=== PATIENT | male | born 1935 ===

== ENCOUNTER 2016-12-24 16:28 | Inpatient (IN) | payer MEDICARE, BC, OTHER ==
[2016-12-24] MEDS ORDERED: Ondansetron INJ* 2 MG/ML VIAL IV SCH (18:00)
[2016-12-24] MEDS ORDERED: Ondansetron INJ* 2 MG/ML VIAL IV PRN (18:30)
[2016-12-24] MEDS ORDERED: metroNIDAZOLE IV 500 MG/100ML* 500 MG/100 ML BAG IVPB SCH (18:30)
[2016-12-24] MEDS: NS 0.9% 1000 ML* 1,000 ML IV SCH (18:36)
[2016-12-24 19:19] LABS: Hematocrit 36 % (42-52); Hemoglobin 11.7 g/dl (14.0-18.0); Mean Corpuscular HGB Conc 33 g/dl (31-36); Mean Corpuscular Hemoglobin 30 pg (27-31); Mean Corpuscular Volume 91 fL (80-94); Mean Platelet Volume 8 um3 (7.4-10.4); Red Blood Count 3.95 10^6/ul (4.0-5.4); Red Cell Distribution Width 15 % (10.5-15); White Blood Count 13.5 10^3/ul (3.5-10.8)
[2016-12-24 19:29] LABS: Add Diff/Slide Review? Slide Review Added; Comments Flag Yes
[2016-12-24 19:34] LABS: Albumin 2.9 g/dL (3.2-5.2); Calcium 8.3 mg/dL (8.6-10.3); EGFR African American 59.8 (>60); EGFR Non-African American 46.5 (>60); Globulin 2.9 g/dL (2-4); Potassium 3.5 mmol/L (3.5-5.0); Total Bilirubin 0.4 mg/dL (0.2-1.0); Total Protein 5.8 g/dL (6.4-8.9)
[2016-12-24 20:12] LABS: Immature Granulocytes 24 % (0-9); Myelocytes % 3 % (0-1); Neutrophil % 63 % (38-83)
[2016-12-24 20:13] LABS: RBC Morphology Normal (Normal)
--- NOTE | 2016-12-24 20:35 | CONS ---
CC: Dr. Fili Nguyễn; [facility] * SURGICAL CONSULTATION REPORT: DATE OF CONSULT: 12/24/16 LOCATION: The patient is seen in room 333. HISTORY OF PRESENT ILLNESS: I was contacted by the hospitalist service to evaluate Mr. Clarke, a gentleman who was transferred from [place] [facility] with complaints of a 5-day history of abdominal pain. The patient's workup at [facility] included a CT scan with p.o. contrast , and labs showed an elevated white blood cell count of 16 with left shift and a CT scan consistent with small obstruction with free fluid collection of unclear etiology. Emergency room team contacted Dr. Araya who recommended transfer to our hospital. The patient describes significant diarrhea starting around last week. It continued into the weekend and then he started having some abdominal pain, mostly in the mid abdomen, nonradiating. He treated this with Aleve. He then developed vomiting and retching. First episodes of vomiting were significant amounts that were blood tinged. This gave him some relief. The vomiting trailed off to more smaller volumes and then the patient showed that he had no appetite and presented to the emergency room at [place]. The patient denies any previous similar symptoms. Denies any fevers or chills. Currently, he does not have any significant abdominal pain. He has not asked for any narcotics. He has an appetite. He is passing a small amount of flatus. Denies any hiccups. PAST MEDICAL HISTORY: Hypertension, anxiety, and prostate cancer. PAST SURGICAL HISTORY: Open appendectomy many years ago and a right total hip. He underwent radiation treatment for his prostate. HOME MEDICATIONS: Include: 1. Wellbutrin. 2. Zoloft. 3. Zyprexa. 4. Prinivil. 5. Lorazepam. 6. Vitamins. ALLERGIES: He has no known drug allergies. SOCIAL HISTORY: Former smoker. Last smoking was many years ago. Denies alcohol use. He is retired. Lives with his girlfriend. He presents today with his older son. He has fair exercise tolerance, although he does not like to do too much exercising. He does not remember his last colonoscopy. REVIEW OF SYSTEMS: No fevers. No chills. No shortness of breath or chest pain. No cardiovascular disease or cerebrovascular disease. No headaches. Abdominal pain as described. No dysuria. No hematuria or pneumaturia. Minimal flatus passage. No bowel movement for a few days. The patient has been told he had diverticulitis on some report, but he has never been treated for this or have any symptoms of it. The patient seems to have a high pain threshold according to him and his son, where he did not require any pain medication after his total hip. PHYSICAL EXAM: He is afebrile. Vital signs are stable. Blood pressure 140/ 64. He is alert and oriented x3, in no apparent distress. Head, Eyes, Ears, Nose, and Throat: Normocephalic, atraumatic. Sclerae anicteric. Mucous membranes are moist. Lungs: Clear to auscultation bilaterally. Abdomen: Soft , distended, nontender on deep palpation. No palpable lesions. No groin hernias. No ventral hernias. Well-healed right lower paramedian scar. Rectal exam showed stool in the vault. It is nonbloody. Guaiac is pending. No CVA tenderness. Extremities within normal limits. DIAGNOSTIC STUDIES/LAB DATA: Labs from [place] reviewed. CT scan images from [place] are reviewed and I discussed this with the radiologist environmental consultant at [facility]. The patient shows dilated stomach with contrast going to the proximal small bowel without any significant dilatation, but does show a transition point in the mid abdomen that correlates with a very large nonenhancing fluid collection of unclear etiology. There is no contrast in it, but it does have a meniscus of air and fluid level and may be emanating from the colon because there were minimal inflammatory changes in the mesentery and towards the sigmoid colon. No other free fluid. No other free air. IMPRESSION: Likely diverticulitis with fluid collection and possible complication of small bowel obstruction in a patient who is passing a minimal amount of gas at this point and has an otherwise benign abdomen. I believe the patient will benefit from watchful waiting at this point, NG tube, and antibiotics. He has been started on Cipro and Flagyl. His labs should be repeated in the morning. I believe his CAT scan should be repeated in the next 48 to 72 hours. If he worsens, should consider diagnostic laparoscopy, laparotomy on this patient, but if he stays as is, then maybe a CT scan to see if this fluid collection coalesced into some abscess that could be treated percutaneously or not. We will watch closely regarding the obstruction. If this does not show improvement, then he will certainly have to go to the operating room regardless. Discussed the case with the hospitalist service and we will follow closely. [id number]/[facility] #: [id number] PRISCILLA
[2016-12-24] MEDS: Pantoprazole IV* 40 MG IV SCH (21:40)
[2016-12-24] MEDS: Heparin VIAL(*) 5000 UNITS/ML VIAL (FIVE THOUSAND) SUBCUT SCH (21:40)
[2016-12-24] MEDS: metroNIDAZOLE IV 500 MG/100ML* 500 MG/100 ML BAG IVPB SCH (23:37)
[2016-12-25] MEDS: Ciprofloxacin 400MG IVPREMIX(* 400 MG/200 ML BAG IVPB SCH ×2 (03:20→16:41)
--- NOTE | 2016-12-25 04:22 | HP ---
CC: Dr. Cooper Phan; Dr. Montalvo * HISTORY AND PHYSICAL: DATE OF ADMISSION: 12/24/16 PRIMARY CARE PROVIDER: Dr. Cooper Phan, [facility], in [place]. ATTENDING PHYSICIAN: Trae Hardy MD *(report is being dictated by Song Adames NP) CHIEF COMPLAINT: 1. Nausea and vomiting. 2. Abdominal discomfort. HISTORY OF PRESENT ILLNESS: Mr. Clarke is an 81-year-old male patient. He carries a history of hypertension, depression, and anxiety. He states that about a week ago, he noticed that he was constipated. He had an episode of diarrhea over the weekend, on Thursday and Thursday and then since then he has not been having any more bowel movements. He has been not passing any flatus. He has actually been having nausea and vomiting. He started off Thursday night with vomiting profusely. He states he vomited up a dark looking substance. He states it looks very dark, almost black. He states it did not look like coffee ground. He states that anytime he tried to eat or drink anything over the last few days, it would make him feel like he was dry heaving, he would vomit it up, he was mostly dry heaving at night, and he was noticing his abdomen was getting more distended and more bigger and he was concerned because that was not going away. He normally resides in [place] during the summertime and in the wintertime, he lives in [place]. He was visiting the [facility] area and actually went to the walk-in clinic in [place] today. They admitted him directly, got a CAT scan there, which did show an abscess and a small-bowel obstruction. He denied having any fevers or chills. He denies having any chest pain or shortness of breath currently. He states he can walk up a flight of stairs and it does not give him any chest pain, but he was concerned because of the discomfort in his abdomen, he felt that he needed to be evaluated. He was evaluated at [place]. [place] felt that he needed a higher level of care because of the SBO with an abscess. He does carry a history of diverticulitis. He was transferred here and we were asked to evaluate for admission. PAST MEDICAL HISTORY: Significant for: 1. Hypertension. 2. Anxiety. 3. Depression. 4. Diverticulitis. 5. Prostate cancer. PAST SURGICAL HISTORY: 1. She has had an appendectomy. 2. Back surgery. ALLERGIES TO MEDICATIONS: No known drug allergies. HOME MEDICATIONS: According to his hand written list include: 1. Wellbutrin 1 tablet daily. 2. Zoloft 100 mg daily. 3. Zyprexa 2.5 mg p.o. at bedtime. 4. Ativan 0.25 mg p.o. daily. 5. Lisinopril 10 mg daily. 6. Vitamin D 1000 units p.o. at bedtime. FAMILY HISTORY: His mother of old age at the age of 96, and his father had a history of diabetes and CAD. SOCIAL HISTORY: He does not smoke, he does not drink. Surrogate decision maker is his son. REVIEW OF SYSTEMS: There is no documented fever. He denied any significant weight change. No double vision. No ear discharge. He denies having any rhinorrhea. No sore throat. No thyroid enlargement. He denies having any chest pain. No orthopnea. No nocturnal dyspnea. There was nausea, vomiting. There is abdominal pain. There is no dysuria, no frequency, no seizure, no loss of consciousness, no pruritus, and no skin ulcerations. Review of 14 systems completed, all others negative. PHYSICAL EXAMINATION GENERAL: At this time, Mr. Clarke is an 81-year-old male patient. He does not appear to be in any acute distress. He is sitting in the hospital bed. VITAL SIGNS: Reveals blood pressure of 140/64 with a pulse of 81, respirations 22, O2 sat 96%, and temperature 97.9. HEENT: Head is atraumatic and normocephalic. Eyes; EOMs are intact. Sclerae anicteric and not pale. Throat: Oral mucosa appears to be dry. No oropharyngeal erythema. NECK: Supple. LUNGS: Clear to auscultation. No wheezes, rales, or rhonchi. HEART: Heart sounds S1 and S2. Regular rate and rhythm. No murmurs, rubs, or gallops. ABDOMEN: Mildly distended. There was tenderness in the left lower quadrant. Bowel sounds are hypoactive. EXTREMITIES: Pulses were 2+ throughout and no peripheral edema. He is able to move all 4 extremities with 5/5 strength. SKIN: Grossly intact. NEUROLOGIC: The patient is awake, he is alert, he is oriented x3. His tongue is midline. His shift supervisor rn were equal. He had no gross focal deficits. LABORATORY DATA: The labs from [place] revealed WBC of 15.9, RBC of 4.86, hemoglobin 14.2, hematocrit 42, platelet count of 351. Sodium was 144, potassium of 3.9, chloride of 103, bicarb 30, BUN 63, creatinine 1.9. I do not have baseline for comparison. Glucose 158, calcium 9.8, total bili 0.5, AST 20 , ALT 23. He had a CT abdomen and pelvis, impression, dominant finding of possible small bowel obstruction with transition point proximal to the fluid collection in the mid abdomen with characteristics suspicious for possible abscess as described above. I did do an EKG today, which does show a normal sinus rhythm with no ST elevation. He did have a T-wave inversion in V2 only, but no acute changes were noted at this point. No previous for comparison. Old medical records were reviewed. ASSESSMENT AND PLAN: Mr. Clarke is an 81-year-old male patient, coming into the hospital today for direct admission from [place] for complaints of abdominal discomfort. On evaluation, there was a concern for an abscess and small bowel obstruction. He will be admitted under inpatient status for: 1. Small bowel obstruction with abscess. At this point, I did touch base with Dr. Montalvo, who will be evaluating the patient. Plan will be to leave the patient NPO. Possible NG tube pending surgical evaluation. I did order a PPI while he is NPO, placed him on Cipro, Flagyl, IV fluids, and then I am going to get surgical evaluation. In terms of perioperative risk stratification, he again at this point is a low risk. His EKG is stable pending his chest x-ray, if that is stable, I think he is medically optimized if there is a surgical procedure that needs to be pursued. 2. Hypertension. In the setting of the acute illness, I am going to hold his lisinopril. 3. Presumed acute renal failure. At this point, I will get a urine. I will send off for urine random sodium and creatinine with a calculated FENa, but it is probably prerenal from him being dehydrated from the nausea and vomiting. At this point, we will again hold nephrotoxic agents, hydrate him, and follow his creatinine levels. 4. Anxiety. Continue with supportive care. I did order his Ativan IV. 5. Depression. We will hold his p.o. medications for the time being. 6. Diverticulitis in the past. At this point, presumably he may have had diverticulitis, which may have led to this abscess and certainly may have led to small bowel obstruction, but again we are going to treat with Cipro and Flagyl. 7. Prostate cancer. Follow with his primary. 8. DVT prophylaxis. He is high risk, will be placed on heparin subcu. 9. Code status. He does wish to be a DNR. MOLST has been filled out. 10. Fluid, electrolytes, and nutrition. He is NPO with normal saline at 100 an hour. TIME SPENT: Time spent on the admission was approximately 60 minutes, greater than half the time was spent [id number] with the patient obtaining my history and physical; other half of the time was spent going over the plan of care with the patient and implementing the plan of care. I discussed the plan of care with my attending, Dr. Hardy, he is in agreement. SONG ADAMES NP [id number]/[facility] #: [id number] PRISCILLA
[2016-12-25] MEDS: NS 0.9% 1000 ML* 1,000 ML IV SCH ×2 (05:34→18:01)
[2016-12-25] MEDS: Heparin VIAL(*) 5000 UNITS/ML VIAL (FIVE THOUSAND) SUBCUT SCH ×3 (05:34→21:30)
[2016-12-25] MEDS: metroNIDAZOLE IV 500 MG/100ML* 500 MG/100 ML BAG IVPB SCH ×3 (07:45→18:05)
[2016-12-25 07:48] LABS: Hematocrit 36 % (42-52); Mean Corpuscular HGB Conc 33 g/dl (31-36); Mean Corpuscular Hemoglobin 30 pg (27-31); Mean Corpuscular Volume 90 fL (80-94); Mean Platelet Volume 8 um3 (7.4-10.4); Red Blood Count 3.98 10^6/ul (4.0-5.4); Red Cell Distribution Width 15 % (10.5-15); White Blood Count 13.4 10^3/ul (3.5-10.8)
[2016-12-25 07:53] LABS: Add Diff/Slide Review? Slide Review Added; Comments Flag Yes
[2016-12-25 08:01] LABS: BUN/Creatinine Ratio 35.9 (8-20); Calcium 8.1 mg/dL (8.6-10.3); EGFR African American 59.8 (>60); EGFR Non-African American 46.5 (>60); Potassium 3.6 mmol/L (3.5-5.0)
[2016-12-25] MEDS: LORazepam INJ* 2 MG/ML 1 ML VIAL IV PUSH SCH (08:36)
--- NOTE | 2016-12-25 10:59 | PN ---
Progress Note - Progress Note Date of Service: 12/25/16 SOAP: Subjective: Pt seen and examined. Feels a little better today. His CC is discomfort at NGT. NO flatus today. No nausea. Objective: af vss NGT 800cc abdo: soft/distended/mild central tenderness w/o rebound. Labs noted. Assessment: SBO possibly 2ary to perforated SB vs LB. hemodynamically stable. Plan: Pt may resolve with drainage alone. Since he is HD stable and not in pain, I recommend CT guided drainage with cultures. He may still need surgical intervention, and we will watch closely case d/w IR
[2016-12-25] MEDS ORDERED: fentaNYL* 50 MCG/ML 5 ML VIAL (250 MCG VIAL) ONE (14:19)
--- NOTE | 2016-12-25 15:58 | PN ---
Subjective Date of Service: 12/25/16 Interval History: Pt is seen just prior to CT guided aspiration of abdominal collection. NG clamped prior to procedure Objective Active Medications: Heparin Sodium (Porcine) (Heparin Vial(*)) 5,000 units SUBCUT Q8HR [facility] Last Admin: 12/25/16 12:04 Dose: Not Given Ciprofloxacin/Dextrose (Cipro 400 Mg Ivpremix(*)) 400 mg in 200 mls @ 200 mls/ hr IVPB Q12H [facility] Last Admin: 12/25/16 03:20 Dose: 200 mls/hr Sodium Chloride (Ns 0.9% 1000 Ml*) 1,000 mls @ 100 mls/hr IV PER RATE [facility] Last Admin: 12/25/16 05:34 Dose: 100 mls/hr Metronidazole/Sodium Chloride (Flagyl 500 Mg Ivpb*) 500 mg in 100 mls @ 100 mls /hr IVPB Q8H [facility] Last Admin: 12/25/16 07:45 Dose: 100 mls/hr Lorazepam (Ativan Inj*) 0.25 mg IV PUSH DAILY [facility] Last Admin: 12/25/16 08:36 Dose: 0.25 mg Ondansetron HCl (Zofran Inj*) 4 mg IV Q4H PRN PRN Reason: NAUSEA/VOMITING Pantoprazole Sodium (Protonix Iv*) 40 mg IV Q24H [facility] Last Admin: 12/24/16 21:40 Dose: 40 mg Vital Signs 12/24/16 12/24/16 12/24/16 17:20 18:18 19:49 Temperature 97.9 F Pulse Rate 81 Respiratory 22 22 18 Rate Blood Pressure 140/64 (mmHg) O2 Sat by Pulse 96 Oximetry 12/24/16 12/25/16 12/25/16 23:26 03:28 07:11 Temperature 97.7 F 97.7 F Pulse Rate 85 82 Respiratory 16 16 16 Rate Blood Pressure 143/67 134/67 (mmHg) O2 Sat by Pulse 93 93 93 Oximetry 12/25/16 12/25/16 12/25/16 07:15 08:36 09:36 Temperature 98.8 F Pulse Rate 82 Respiratory 16 16 16 Rate Blood Pressure 136/64 (mmHg) O2 Sat by Pulse 93 Oximetry 12/25/16 11:50 Temperature 98.3 F Pulse Rate 80 Respiratory 16 Rate Blood Pressure 140/67 (mmHg) O2 Sat by Pulse 95 Oximetry Oxygen Devices in Use Now: None Appearance: 81 yo M in nAd, aAOx3 Eyes: No Scleral Icterus, PERRLA Ears/Nose/Mouth/Throat: NL Teeth, Lips, Gums, Mucous Membranes Moist Neck: NL Appearance and Movements; NL JVP, Trachea Midline Respiratory: Symmetrical Chest Expansion and Respiratory Effort, Clear to Auscultation Cardiovascular: NL Sounds; No Murmurs; No JVD, RRR Abdominal: - - soft, NT, mild didtention , BS+ Lymphatic: No Cervical Adenopathy Extremities: No Edema, No Clubbing, Cyanosis Skin: No Rash or Ulcers, No Nodules or Sclerosis Neurological: Alert and Oriented x 3, NL Muscle Strength and Tone Result Diagrams: 12/25/16 07:23 12/25/16 07:23 Microbiology and Other Data: Microbiology 12/24/16 17:50 Stool Occult Blood (YUE) - Final Stool Assess/Plan/Problems-Billing Assessment: 81 yo M with h/o HTN, depression , diverticulits presents with SBO and intraabdominal fluid collection - Patient Problems (1) SBO (small bowel obstruction) Comment: cont NG tube appreciate surgical consult. (2) Abdominal abscess Comment: suspect preforated diverticulitis. cont Fipro /Flagyl. for CT guided drainage today. (3) DVT prophylaxis Comment: heparin sc (4) Acute renal failure Comment: due to SBO/diverticulitis. cont IVF Status and Disposition: inpatient
--- NOTE | 2016-12-25 16:53 | RAD ---
CPT II Codes: 6100F INDICATION: Intraperitoneal abscess in the presence of diverticulosis. COMPARISON: CT abdomen pelvis dated December 24, 2016 PROCEDURE NOTE AND FINDINGS: The indication, alternatives therapies, benefits and risks of the procedure were explained to the patient and informed consent was obtained. The patient was brought to the CT suite and positioned in the supine post ion. . A time out was preformed with the technologist and nursing staff. The patient was prepped and draped in the usual sterile fashion. Pain control was achieved with local anesthesia with 1% lidocaine. Using CT guidance a 10 [place] pigtail drainage catheter was inserted at the right lower quadrant into the peritoneal fluid collection according to the trocar technique. Aspiration yielded approximately 20 mL of foul-smelling, purulent material. A sample was sent for laboratory analysis. The drain was secured to the skin and dressed with sterile gauze. The patient tolerated the procedure well without incident. The patient was transported to the holding area in stable condition observation for observation. IMPRESSION: Uncomplicated CT guided drain placement as described in the body of the report. Plan: 1. Follow-up laboratory analysis of sample. 2. The drain should be flushed with approximately 10 mL sterile saline every 8 hours. 3. Drainage bag to gravity.
[2016-12-25] MEDS ORDERED: metroNIDAZOLE IV 500 MG/100ML* 500 MG/100 ML BAG IVPB SCH (18:00)
[2016-12-25] MEDS: Pantoprazole IV* 40 MG IV SCH (20:10)
[2016-12-26] MEDS: metroNIDAZOLE IV 500 MG/100ML* 500 MG/100 ML BAG IVPB SCH ×3 (02:06→17:50)
[2016-12-26] MEDS: Ciprofloxacin 400MG IVPREMIX(* 400 MG/200 ML BAG IVPB SCH ×2 (05:00→16:47)
[2016-12-26] MEDS: Heparin VIAL(*) 5000 UNITS/ML VIAL (FIVE THOUSAND) SUBCUT SCH ×3 (05:35→22:03)
[2016-12-26] MEDS: NS 0.9% 1000 ML* 1,000 ML IV SCH (05:38)
[2016-12-26] MEDS: LORazepam INJ* 2 MG/ML 1 ML VIAL IV PUSH SCH (08:24)
[2016-12-26 09:08] LABS: Hematocrit 41 % (42-52); Hemoglobin 13.3 g/dl (14.0-18.0); Mean Corpuscular HGB Conc 33 g/dl (31-36); Mean Corpuscular Hemoglobin 30 pg (27-31); Mean Corpuscular Volume 91 fL (80-94); Mean Platelet Volume 8 um3 (7.4-10.4); Red Blood Count 4.45 10^6/ul (4.0-5.4); Red Cell Distribution Width 15 % (10.5-15); White Blood Count 16.7 10^3/ul (3.5-10.8)
[2016-12-26 09:15] LABS: Add Diff/Slide Review? Slide Review Added; Comments Flag Yes
[2016-12-26 09:19] LABS: BUN/Creatinine Ratio 31.9 (8-20); Calcium 8.5 mg/dL (8.6-10.3); EGFR African American 60.3 (>60); EGFR Non-African American 46.9 (>60); Potassium 3.8 mmol/L (3.5-5.0); Total Bilirubin 0.5 mg/dL (0.2-1.0)
--- NOTE | 2016-12-26 09:48 | RAD ---
HISTORY: Hypertension, abdominal pain COMPARISONS: None VIEWS:1: Single frontal portable view of the chest at 6:25 PM FINDINGS: LINES AND TUBES: None. CARDIOMEDIASTINAL SILHOUETTE: The cardiomediastinal silhouette is normal for portable technique. PLEURA: The costophrenic angles are sharp. No pleural abnormalities are noted. LUNG PARENCHYMA: The lungs are clear. ABDOMEN: The upper abdomen is clear. There is no subphrenic gas. BONES AND SOFT TISSUES: There is postsurgical change to the left shoulder IMPRESSION: NO ACTIVE CARDIOPULMONARY DISEASE.
--- NOTE | 2016-12-26 10:27 | SURGPN ---
Subjective - Introduction -: Male, current age 81 years Admitted on: [f ADM pt adm dt] Patient's surgical date: 12/25 Procedure completed: CT-guided drainage of abdominal fluid collection - Medications -: Active Medications Generic Name Dose Route Start Last Admin Trade Name Freq PRN Reason Stop Dose Admin Heparin Sodium (Porcine) 5,000 units 12/24/16 22:00 12/26/16 05:35 Heparin Vial(*) SUBCUT 5,000 units Q8HR [facility] Administration Sodium Chloride 1,000 mls @ 100 mls/hr 12/24/16 18:00 12/26/16 05:38 Ns 0.9% 1000 Ml* IV 100 mls/hr PER RATE [facility] Administration Metronidazole/Sodium Chloride 500 mg in 100 mls @ 100 mls/hr 12/25/16 18:00 12/26/16 09:44 Flagyl 500 Mg Ivpb* IVPB 100 mls/hr Q8H [facility] Administration Ciprofloxacin/Dextrose 400 mg in 200 mls @ 200 mls/hr 12/26/16 05:00 05:00 Cipro 400 Mg Ivpremix(*) IVPB 200 mls/hr 0500,1700 [facility] Administration Lorazepam 0.25 mg 12/25/16 09:00 12/26/16 08:24 Ativan Inj* IV PUSH 0.25 mg DAILY [facility] Administration Ondansetron HCl 4 mg 12/24/16 18:30 Zofran Inj* IV Q4H PRN NAUSEA/VOMITING Pantoprazole Sodium 40 mg 12/24/16 20:00 12/25/16 20:10 Protonix Iv* IV 40 mg Q24H [facility] Administration - Comments Comments: Patient was sitting in the chair comfortably with no acute stress. NG tube in place. Patient had a bowel movement this morning, patient described as "half diarrhea and half soft stool". Patient reported relief of the bloating sensation after bowel movement. Objective - Intake and Output -: Intake & Output 12/24/16 12/25/16 12/26/16 12/27/16 06:59 06:59 06:59 06:59 Intake Total 1345 2225 Output Total 1050 2175 Balance 295 50 Weight 150 lb Intake: IV Fluids 1038 1515 NS (0.9%) 1038 1515 IVPB 307 210 ABX - CIPROFLOXACIN 205 ABX - FLAGYL 102 210 Oral 0 500 Output: NG Tube Drainage Amount 800 1000 Pigtail Drain 50 Urine 250 1125 Other: Estimated Void Medium Date of Last Bowel 12/26/16 Movement # Bowel Movements 0 1 1 Estimated Stool Amount Small Medium # Voids 2 Surgical Physical Exam - Comments -: Heart RRR, no murmurs Lung clear to auscultation Abdomen slightly distended, soft, non-tender Assessment and Plan - Assessment -: This is a 81 year old gentlemen with perforated diverticulitis and secondary abdominal abscess. s/p CT guided needle aspiration. The patient is currently stable and doing well. - Plan Additional Comments: Continue IV antibiotics, continue clear liquid diet Ambulation and activity as tolerated.
[2016-12-26 10:48] LABS: Eosinophils % 1 % (0-6); Immature Granulocytes 9 % (0-9); Myelocytes % 5 % (0-1); Neutrophil % 76 % (38-83); RBC Morphology Normal (Normal)
[2016-12-26] MEDS ORDERED: Lidocaine 2% VISCOUS* 15 ML UDC SWISH SPIT PRN (11:28)
--- NOTE | 2016-12-26 11:28 | PN ---
Progress Note - Progress Note Date of Service: 12/26/16 SOAP: Subjective: Pt seen and examined. Feels a little better today. His CC remains the NGT. positive flatus today and 3 semisolid BMs. No nausea. s/p perc drain yesterday with purulent drainage which continues via pigtail catheter Objective: af vss NGT 1000cc/24hrs abdo: soft/less distended/mild central tenderness w/o rebound. pigtail in place Labs noted. Assessment: SBO likely 2ary to perforated sigmoid diverticulitis. s/p IR drainage and resolving SBO Plan: Pt may resolve with drainage alone. He may still need surgical intervention, and we will watch closely. SACMA to cover me through 01/05/17 antibiotics; f/u cultures change IVF bolus fluid for elevated Cr DVT proph NPO, will likely remove NGT later today
[2016-12-26] MEDS: D5W 1/2 NS KCl 20 Meq 1000 ML* 1,000 ML IV SCH (12:39)
--- NOTE | 2016-12-26 14:00 | PN ---
Subjective Date of Service: 12/26/16 Interval History: Pt had 2 BM's today. no abd pain. Pigtail cath in abdomen draining fecal material Objective Active Medications: Heparin Sodium (Porcine) (Heparin Vial(*)) 5,000 units SUBCUT Q8HR [facility] Last Admin: 12/26/16 05:35 Dose: 5,000 units Metronidazole/Sodium Chloride (Flagyl 500 Mg Ivpb*) 500 mg in 100 mls @ 100 mls /hr IVPB Q8H [facility] Last Admin: 12/26/16 09:44 Dose: 100 mls/hr Ciprofloxacin/Dextrose (Cipro 400 Mg Ivpremix(*)) 400 mg in 200 mls @ 200 mls/ hr IVPB 0500,1700 [facility] Last Admin: 12/26/16 05:00 Dose: 200 mls/hr Potassium Chloride/Dextrose (D5w 1/2 Ns Kcl 20 Meq 1000 Ml*) 1,000 mls @ 80 mls /hr IV PER RATE [facility] Last Admin: 12/26/16 12:39 Dose: 80 mls/hr Lactated Ringer's (Lactated Ringers 1000 Ml Bag*) 1,000 mls @ 0 mls/hr IV WIDE OPEN [facility] PRN Reason: Wide Open Stop: 12/26/16 23:59 Last Admin: 12/26/16 11:43 Dose: 999 mls/hr Lidocaine (Xylocaine 2% Viscous*) 20 ml SWISH SPIT TID PRN PRN Reason: PAIN Lorazepam (Ativan Inj*) 0.25 mg IV PUSH DAILY [facility] Last Admin: 12/26/16 08:24 Dose: 0.25 mg Ondansetron HCl (Zofran Inj*) 4 mg IV Q4H PRN PRN Reason: NAUSEA/VOMITING Pantoprazole Sodium (Protonix Iv*) 40 mg IV Q24H [facility] Last Admin: 12/25/16 20:10 Dose: 40 mg Vital Signs 12/25/16 12/25/16 12/25/16 16:00 16:40 18:28 Temperature 99.5 F Pulse Rate 86 Respiratory 16 Rate Blood Pressure 148/68 (mmHg) O2 Sat by Pulse 100 100 94 Oximetry 12/25/16 12/25/16 12/25/16 19:19 20:00 23:27 Temperature 98.9 F 98.1 F Pulse Rate 77 69 Respiratory 16 17 18 Rate Blood Pressure 139/61 133/67 (mmHg) O2 Sat by Pulse 94 94 Oximetry 12/26/16 12/26/16 12/26/16 03:24 07:48 08:00 Temperature 98.2 F 97.9 F Pulse Rate 71 68 Respiratory 16 18 18 Rate Blood Pressure 140/71 129/105 (mmHg) O2 Sat by Pulse 94 96 96 Oximetry 12/26/16 12/26/16 12/26/16 08:24 09:24 11:24 Temperature 98.0 F Pulse Rate 78 Respiratory 18 18 18 Rate Blood Pressure 144/63 (mmHg) O2 Sat by Pulse 96 Oximetry Oxygen Devices in Use Now: None Appearance: 81 yo M in nAD, aAOx3 Eyes: No Scleral Icterus, PERRLA Ears/Nose/Mouth/Throat: NL Teeth, Lips, Gums, Mucous Membranes Moist Neck: NL Appearance and Movements; NL JVP, Trachea Midline Respiratory: Symmetrical Chest Expansion and Respiratory Effort, Clear to Auscultation Cardiovascular: NL Sounds; No Murmurs; No JVD, RRR Abdominal: - - soft, minimal tenderness in LLQ, pigtail in RLQ draining a large amount of fecal appearing matter Lymphatic: No Cervical Adenopathy Extremities: No Edema, No Clubbing, Cyanosis Skin: No Rash or Ulcers, No Nodules or Sclerosis Neurological: Alert and Oriented x 3, NL Muscle Strength and Tone Result Diagrams: 12/26/16 08:28 12/26/16 08:26 Microbiology and Other Data: Microbiology 12/24/16 17:50 Stool Occult Blood (YUE) - Final Stool Assess/Plan/Problems-Billing Assessment: 81 yo M with h/o HTN, depression , diverticulits presents with SBO and intraabdominal fluid collection - Patient Problems (1) SBO (small bowel obstruction) Comment: NG tube may be removed later on today as persurgery appreciate surgical consult. SBO resolving (2) Abdominal abscess Comment: suspect preforated diverticulitis. cont Fipro /Flagyl. s/p IR placed transcutaneus drain on 12/25/16 (3) DVT prophylaxis Comment: heparin sc (4) Acute renal failure Comment: due to SBO/diverticulitis. cont IVF Status and Disposition: inpatient
[2016-12-26] MEDS: Pantoprazole IV* 40 MG IV SCH (20:34)
[2016-12-27] MEDS: metroNIDAZOLE IV 500 MG/100ML* 500 MG/100 ML BAG IVPB SCH ×3 (01:46→18:01)
[2016-12-27] MEDS: D5W 1/2 NS KCl 20 Meq 1000 ML* 1,000 ML IV SCH ×2 (04:38→21:41)
[2016-12-27] MEDS: Ciprofloxacin 400MG IVPREMIX(* 400 MG/200 ML BAG IVPB SCH ×2 (04:38→16:50)
[2016-12-27] MEDS: Heparin VIAL(*) 5000 UNITS/ML VIAL (FIVE THOUSAND) SUBCUT SCH ×3 (05:20→21:41)
[2016-12-27 06:51] LABS: Add Diff/Slide Review? Slide Review Added; Comments Flag Yes; Hematocrit 38 % (42-52); Hemoglobin 12.3 g/dl (14.0-18.0); Mean Corpuscular HGB Conc 33 g/dl (31-36); Mean Corpuscular Hemoglobin 30 pg (27-31); Mean Corpuscular Volume 91 fL (80-94); Mean Platelet Volume 8 um3 (7.4-10.4); Red Blood Count 4.18 10^6/ul (4.0-5.4); Red Cell Distribution Width 16 % (10.5-15); White Blood Count 14.5 10^3/ul (3.5-10.8)
[2016-12-27 07:09] LABS: BUN/Creatinine Ratio 25.4 (8-20); EGFR African American 67.8 (>60); EGFR Non-African American 52.7 (>60); Magnesium 1.7 mg/dL (1.9-2.7); Phosphorus 2.4 mg/dL (2.5-5.0); Potassium 3.9 mmol/L (3.5-5.0)
[2016-12-27] MEDS ORDERED: Magnesium Sulfate 2 GM IV* 2 GM/50 ML BAG IVPB ONE (07:50)
[2016-12-27 07:56] LABS: Eosinophils % 1 % (0-6); Immature Granulocytes 8 % (0-9); Metamyelocytes % 3 % (0-2); Myelocytes % 1 % (0-1); Neutrophil % 75 % (38-83); RBC Morphology Normal (Normal)
--- NOTE | 2016-12-27 08:30 | PN ---
Subjective Date of Service: 12/27/16 Interval History: pt has had several BM's in the past 24H, denies abd pain Objective Active Medications: Heparin Sodium (Porcine) (Heparin Vial(*)) 5,000 units SUBCUT Q8HR [facility] Last Admin: 12/27/16 05:20 Dose: 5,000 units Metronidazole/Sodium Chloride (Flagyl 500 Mg Ivpb*) 500 mg in 100 mls @ 100 mls /hr IVPB Q8H [facility] Last Admin: 12/27/16 01:46 Dose: 100 mls/hr Ciprofloxacin/Dextrose (Cipro 400 Mg Ivpremix(*)) 400 mg in 200 mls @ 200 mls/ hr IVPB 0500,1700 [facility] Last Admin: 12/27/16 04:38 Dose: 200 mls/hr Potassium Chloride/Dextrose (D5w 1/2 Ns Kcl 20 Meq 1000 Ml*) 1,000 mls @ 80 mls /hr IV PER RATE [facility] Last Admin: 12/27/16 04:38 Dose: 80 mls/hr Magnesium Sulfate (Magnesium Sulfate 2 Gm Iv*) 2 gm in 50 mls @ 50 mls/hr IVPB ONCE ONE Stop: 12/27/16 08:49 Lidocaine (Xylocaine 2% Viscous*) 20 ml SWISH SPIT TID PRN PRN Reason: PAIN Lorazepam (Ativan Inj*) 0.25 mg IV PUSH DAILY [facility] Last Admin: 12/26/16 08:24 Dose: 0.25 mg Ondansetron HCl (Zofran Inj*) 4 mg IV Q4H PRN PRN Reason: NAUSEA/VOMITING Pantoprazole Sodium (Protonix Iv*) 40 mg IV Q24H [facility] Last Admin: 12/26/16 20:34 Dose: 40 mg Vital Signs 12/26/16 12/26/16 12/26/16 09:24 11:24 15:29 Temperature 98.0 F 97.8 F Pulse Rate 78 76 Respiratory 18 18 16 Rate Blood Pressure 144/63 148/64 (mmHg) O2 Sat by Pulse 96 96 Oximetry 12/26/16 12/26/16 12/26/16 16:00 19:15 20:13 Temperature 97.9 F Pulse Rate 76 Respiratory 14 16 Rate Blood Pressure 142/63 (mmHg) O2 Sat by Pulse 96 95 Oximetry 12/26/16 12/27/16 12/27/16 23:24 03:39 07:42 Temperature 98.8 F 98.7 F 98.1 F Pulse Rate 70 74 75 Respiratory 16 16 18 Rate Blood Pressure 148/62 155/71 168/70 (mmHg) O2 Sat by Pulse 95 95 95 Oximetry Oxygen Devices in Use Now: None Appearance: 81 yo M in nAD, aAOx3 Eyes: No Scleral Icterus, PERRLA Ears/Nose/Mouth/Throat: NL Teeth, Lips, Gums, Mucous Membranes Moist Neck: NL Appearance and Movements; NL JVP, Trachea Midline Respiratory: Symmetrical Chest Expansion and Respiratory Effort, Clear to Auscultation Cardiovascular: NL Sounds; No Murmurs; No JVD, RRR Abdominal: NL Sounds; No Tenderness; No Distention, - - pigtail drain in LLQ draining serous fluid with sedimented purulent part on the bottom of bag Extremities: No Edema, No Clubbing, Cyanosis Skin: No Rash or Ulcers, No Nodules or Sclerosis Neurological: Alert and Oriented x 3, NL Muscle Strength and Tone Result Diagrams: 12/27/16 06:42 12/27/16 06:41 Microbiology and Other Data: Microbiology 12/24/16 17:50 Stool Occult Blood (YUE) - Final Stool Assess/Plan/Problems-Billing Assessment: 81 yo M with h/o HTN, depression , diverticulits presents with SBO and intraabdominal fluid collection - Patient Problems (1) SBO (small bowel obstruction) Comment: NG tube removed on 12/26/16 appreciate surgical consult. SBO resolving. will likely be placed on clears by surgery today (2) Abdominal abscess Comment: suspect preforated diverticulitis. cont Fipro /Flagyl. s/p IR placed transcutaneus drain on 12/25/16 (3) Acute renal failure Comment: due to SBO/diverticulitis. cont IVF resolving ACEI on hold (4) HTN (hypertension) Comment: uncontrolled today lisinopril held due to renal failure. will start Norvasc (5) DVT prophylaxis Comment: heparin sc Status and Disposition: inpatient
[2016-12-27] MEDS: LORazepam INJ* 2 MG/ML 1 ML VIAL IV PUSH SCH (08:33)
--- NOTE | 2016-12-27 09:31 | PN ---
Progress Note - Progress Note Date of Service: 12/27/16 SOAP: Subjective: He has had several loose BM's and has passed some flatus. He has no abdominal pain but has had some belching. No nausea or vomiting. He has been ambulating in the halls Objective: Temp Pulse Resp BP Pulse Ox 98.1 F 75 16 168/70 95 12/27/16 07:42 12/27/16 07:42 12/27/16 08:33 12/27/16 07:42 12/27/16 07:42 Intake & Output 12/25/16 12/26/16 12/27/16 12/28/16 06:59 06:59 06:59 06:59 Intake Total 1345 2225 3168 434 Output Total 1050 2175 1070 Balance 841 70 6984 434 Weight 150 lb Intake: IV Fluids 1038 1515 1118 225 ABX - CIPROFLOXACIN 326 D5W 1/ NS 20 meq KCL 433 225 LR 359 NS (0.9%) 1038 1515 IVPB 988 231 0568 209 ABX - CIPROFLOXACIN 205 200 209 ABX - FLAGYL 102 210 200 LR 1000 NS (0.9%) 650 Oral 0 500 0 Output: NG Tube Drainage Amount 800 1000 170 Pigtail Drain 50 175 Urine 250 1125 725 Other: Estimated Void Medium Date of Last Bowel 12/26/16 12/27/16 Movement # Bowel Movements 0 1 0 Estimated Stool Amount Small Medium # Voids 2 PEX: Comfortable Lungs are Clear Abd is soft and slightly distended. Bowel sounds are present throughout and some are higher pitched. There is no tenderness, rigidity or guarding. Drain exiting right lower abdomen has some clear yellow fluid in bag-minimal amount. Laboratory Results - last 24 hr 12/26/16 12/27/16 12/27/16 08:28 06:41 06:42 WBC 14.5 H RBC 4.18 Hgb 12.3 L Hct 38 L MCV 91 MCH 30 MCHC 33 RDW 16 H Plt Count 279 MPV 8 Immature Gran % (Auto) 9 8 Neut % (Auto) 84.1 H Lymph % (Auto) 7.4 L [place] % (Auto) 5.4 Eos % (Auto) 1.7 Baso % (Auto) 1.4 Absolute Neuts (auto) 12.2 H Absolute Lymphs (auto) 1.1 Absolute Monos (auto) 0.8 Absolute Eos (auto) 0.2 Absolute Basos (auto) 0.2 Absolute Nucleated RBC 0.01 Neutrophils % 76 75 Band Neutrophils % 4 4 Lymphocytes % 8 L 11 L Monocytes % 6 5 Eosinophils % 1 1 Metamyelocytes % 3 H Myelocytes % 5 H 1 Nucleated RBC % 0 Normal RBC Morphology Normal Normal Sodium 139 Potassium 3.9 Chloride 112 H Carbon Dioxide 21 L Anion Gap 6 BUN 33 H Creatinine 1.30 H Est GFR ( Amer) 67.8 Est GFR (Non-Af Amer) 52.7 BUN/Creatinine Ratio 25.4 H Glucose 173 H Calcium 8.0 L Phosphorus 2.4 L Magnesium 1.7 L Assessment: Intra-abdominal abscess s/p percutaneous drainage--presumed diverticular etiology? Partial SBO second to above--appears to be improving. ARF-improving WBC decreasing Plan: Start clear liquids today Continue IV antibiotics and drainage Increase activity Will repeat CT abd/pelvis tomorrow--all above discussed with son this morning at the bedside. He needs to make travel plans next week and hopefully follow up CT will give us an idea if drainage is working and the SBO is resolving and whether surgery will be needed. I discussed with him that surgery would be indicated if he remains obstructed, the abscess is not adequately drained, he develops abdominal pain or peritonitis or simply does not improve with the current care. His questions were answered to the best of my ability. Repeat labs in the morning.
[2016-12-27] MEDS: amLODIPine TAB* 5 MG PO SCH (09:58)
[2016-12-27] MEDS: Pantoprazole IV* 40 MG IV SCH (20:03)
[2016-12-28] MEDS: metroNIDAZOLE IV 500 MG/100ML* 500 MG/100 ML BAG IVPB SCH ×3 (02:13→18:31)
[2016-12-28] MEDS: Heparin VIAL(*) 5000 UNITS/ML VIAL (FIVE THOUSAND) SUBCUT SCH ×3 (05:22→21:34)
[2016-12-28] MEDS: Ciprofloxacin 400MG IVPREMIX(* 400 MG/200 ML BAG IVPB SCH ×2 (05:22→17:21)
[2016-12-28] MEDS: LORazepam INJ* 2 MG/ML 1 ML VIAL IV PUSH SCH (09:06)
[2016-12-28] MEDS: amLODIPine TAB* 5 MG PO SCH (09:06)
[2016-12-28 09:13] LABS: Hematocrit 38 % (42-52); Hemoglobin 12.8 g/dl (14.0-18.0); Mean Corpuscular HGB Conc 33 g/dl (31-36); Mean Corpuscular Hemoglobin 30 pg (27-31); Mean Corpuscular Volume 90 fL (80-94); Mean Platelet Volume 8 um3 (7.4-10.4); Red Blood Count 4.29 10^6/ul (4.0-5.4); Red Cell Distribution Width 15 % (10.5-15); White Blood Count 16.2 10^3/ul (3.5-10.8)
[2016-12-28 09:18] LABS: Add Diff/Slide Review? Slide Review Added; Comments Flag Yes
[2016-12-28 09:30] LABS: BUN/Creatinine Ratio 16.1 (8-20); Calcium 7.7 mg/dL (8.6-10.3); EGFR African American 75.8 (>60); Potassium 4.4 mmol/L (3.5-5.0)
[2016-12-28 09:45] LABS: Eosinophils % 2 % (0-6); Immature Granulocytes 5 % (0-9); Myelocytes % 3 % (0-1); Neutrophil % 84 % (38-83); RBC Morphology Normal (Normal)
[2016-12-28] MEDS: Sertraline* 100 MG TAB PO SCH (10:29)
[2016-12-28] MEDS: buPROPion SR TAB.SR* 150 MG PO SCH (10:56)
--- NOTE | 2016-12-28 11:01 | PN ---
Progress Note - Progress Note Date of Service: 12/28/16 SOAP: Subjective: No complaints of pain He has had multiple loose BM's overnight and some flatus and he feels less distended. No N/V and he tolerated some liquids, not much of an appetite thought Objective: Temp Pulse Resp BP Pulse Ox 97.9 F 76 18 157/76 97 12/28/16 08:04 12/28/16 08:04 12/28/16 09:06 12/28/16 08:04 12/28/16 08:04 Intake & Output 12/26/16 12/27/16 12/28/16 12/29/16 06:59 06:59 06:59 06:59 Intake Total 2225 3168 2852 Output Total 2175 1070 430 Balance 50 2098 2422 Intake: IV Fluids 1515 1118 1486 ABX - CIPROFLOXACIN 326 D5W 1/2 NS 20 meq KCL 433 1486 LR 359 NS (0.9%) 1515 IVPB 210 2050 781 ABX - CIPROFLOXACIN 200 418 ABX - FLAGYL 210 200 313 LR 1000 Mag 50 NS (0.9%) 650 Oral 500 0 575 Pigtail Drain 10 Output: NG Tube Drainage Amount 1000 170 Pigtail Drain 50 175 40 Urine 1125 725 300 Liquid Stool 60 Other 30 Other: Estimated Void Medium Large Medium Date of Last Bowel 12/26/16 12/27/16 12/27/16 Movement # Bowel Movements 1 0 1 Estimated Stool Amount Small Medium Large Medium Other Amount Description pigtail to RLQ # Voids 2 1 1 PEX: Comfortable Abd is soft and slightly distended. Bowel sounds are present and somewhat hyperactive and occasionally high pitched. There is no tenderness or guarding. Drain is in place and has some serous yellow fluid in bag. No masses noted Laboratory Results - last 24 hr 12/28/16 12/28/16 08:49 08:49 WBC 16.2 H RBC 4.29 Hgb 12.8 L Hct 38 L MCV 90 MCH 30 MCHC 33 RDW 15 Plt Count 284 MPV 8 Immature Gran % (Auto) 5 Neut % (Auto) 88.1 H Lymph % (Auto) 6.3 L [place] % (Auto) 3.7 Eos % (Auto) 1.5 Baso % (Auto) 0.4 Absolute Neuts (auto) 14.2 H Absolute Lymphs (auto) 1.0 Absolute Monos (auto) 0.6 Absolute Eos (auto) 0.2 Absolute Basos (auto) 0.1 Absolute Nucleated RBC 0 Neutrophils % 84 H Band Neutrophils % 2 Lymphocytes % 4 L Monocytes % 5 Eosinophils % 2 Myelocytes % 3 H Nucleated RBC % 0 Normal RBC Morphology Normal Sodium 136 Potassium 4.4 Chloride 110 Carbon Dioxide 21 L Anion Gap 5 BUN 19 Creatinine 1.18 H Est GFR ( Amer) 75.8 Est GFR (Non-Af Amer) 59.0 BUN/Creatinine Ratio 16.1 Glucose 143 H Calcium 7.7 L Assessment: Intra-abdominal abscess s/p percutaneous drainage--etiology not clear but most likely diverticular. Leukocytosis-WBC up slightly this morning SBO although now having bowel movements and passing flatus and is less distended. No signs of sepsis of peritonitis Plan: Continue IV antibiotics and drainage Will check CT scan today PO as tolerated Follow clinically-discussed with patient and his son and updated them on condition and plans. Hopefully a laparotomy can be avoided.
[2016-12-28] MEDS ORDERED: Iodixanol* (CONTRAST) 320 MG/ML 100 ML SDV IV ONE (13:24)
--- NOTE | 2016-12-28 14:09 | RAD ---
INDICATION: Abscess drainage COMPARISON: CT December 16, 2016 TECHNIQUE: Axial source images were obtained from the hemidiaphragms to the symphysis pubis following administration of oral and intravenous contrast. 83 mL Visipaque 320 was utilized. Coronal and sagittal reconstructed images were acquired. Lung bases: There are tiny bilateral pleural effusions and there is mild bibasilar atelectasis.. Liver: The liver is normal in size. There are no masses. There is no ductal dilatation. Gallbladder: There are no calcified gallstones. There is no evidence of wall thickening or pericholecystic fluid. Spleen: The spleen is normal in size. There are no masses. Pancreas: The pancreas appears atrophic. There is no focal masses or ductal dilatation. Adrenal glands: There is no evidence of adrenal mass. Kidneys: Atrophic right kidney. Prompt perfusion and excretion bilaterally. No renal mass. Adenopathy: There is no evidence of adenopathy by size criteria. Fluid collections: The dominant localized fluid collection appears effectively decompressed by the drainage catheter. There are several tiny adjacent microabscesses measuring up to 2.4 cm. At least one of these likely communicates with the previously identified dominant abscess. There is minor mesenteric edema about the abdomen and there is a small amount of free fluid in the dependent portion of the pelvis. Vessels:There are no significant atherosclerotic changes involving the aorta. There is no focal aneurysm. The iliac vessels are normal in caliber. The IVC appears normal. GI tract: The drainage catheter is noted above. Persistent atonic appearing small bowel loops in central abdomen but no interval change. Air within a normal caliber colon. Extensive diverticula of the sigmoid and descending colon. Pelvic organs: The uterus and adnexa appear normal Bladder: There are no bladder masses. Abdominal and pelvic soft tissues: The extraperitoneal abdominal and pelvic soft tissues appear normal.. Osseous structures: Right hip arthroplasty.. Other: None IMPRESSION: INTERVAL DRAINAGE OF THE LOCALIZED FLUID COLLECTION IN THE CENTRAL ABDOMEN DESCRIBED. SEVERAL TINY ADJACENT MICROABSCESSES. PERSISTENT ATONIC APPEARING SMALL BOWEL LOOPS IN CENTRAL ABDOMEN. ADDITIONAL CT FINDINGS NOTED BY REPORT ARE NOT CHANGED FROM THE RECENT EXTERNAL CT.
--- NOTE | 2016-12-28 15:09 | PN ---
Subjective Date of Service: 12/28/16 Interval History: Pt c/o no abd pain. Pigtail drain with low output x 24h. c/o diarrhea Objective Active Medications: Amlodipine Besylate (Norvasc Tab*) 5 mg PO DAILY [facility] Last Admin: 12/28/16 09:06 Dose: 5 mg Bupropion HCl (Wellbutrin Sr Tab*) 150 mg PO DAILY [facility] Last Admin: 12/28/16 10:56 Dose: 150 mg Heparin Sodium (Porcine) (Heparin Vial(*)) 5,000 units SUBCUT Q8HR [facility] Last Admin: 12/28/16 14:02 Dose: 5,000 units Metronidazole/Sodium Chloride (Flagyl 500 Mg Ivpb*) 500 mg in 100 mls @ 100 mls /hr IVPB Q8H [facility] Last Admin: 12/28/16 10:29 Dose: 100 mls/hr Ciprofloxacin/Dextrose (Cipro 400 Mg Ivpremix(*)) 400 mg in 200 mls @ 200 mls/ hr IVPB 0500,1700 [facility] Last Admin: 12/28/16 05:22 Dose: 200 mls/hr Potassium Chloride/Dextrose (D5w 1/2 Ns Kcl 20 Meq 1000 Ml*) 1,000 mls @ 80 mls /hr IV PER RATE [facility] Last Admin: 12/27/16 21:41 Dose: 80 mls/hr Lidocaine (Xylocaine 2% Viscous*) 20 ml SWISH SPIT TID PRN PRN Reason: PAIN Lorazepam (Ativan Inj*) 0.25 mg IV PUSH DAILY [facility] Last Admin: 12/28/16 09:06 Dose: 0.25 mg Olanzapine (Zyprexa Tab*) 2.5 mg PO BEDTIME [facility] Ondansetron HCl (Zofran Inj*) 4 mg IV Q4H PRN PRN Reason: NAUSEA/VOMITING Pantoprazole Sodium (Protonix Iv*) 40 mg IV Q24H [facility] Last Admin: 12/27/16 20:03 Dose: 40 mg Sertraline HCl (Zoloft*) 100 mg PO DAILY [facility] Last Admin: 12/28/16 10:29 Dose: 100 mg Vital Signs 12/27/16 12/27/16 12/28/16 19:27 23:37 04:04 Temperature 98.2 F 98.0 F 97.9 F Pulse Rate 75 70 72 Respiratory 18 18 16 Rate Blood Pressure 135/63 156/74 155/67 (mmHg) O2 Sat by Pulse 95 97 97 Oximetry 12/28/16 12/28/16 12/28/16 08:00 08:04 09:06 Temperature 97.9 F Pulse Rate 76 Respiratory 16 16 18 Rate Blood Pressure 157/76 (mmHg) O2 Sat by Pulse 97 Oximetry 12/28/16 12/28/16 10:06 11:39 Temperature 98.0 F Pulse Rate 73 Respiratory 16 16 Rate Blood Pressure 155/82 (mmHg) O2 Sat by Pulse 96 Oximetry Oxygen Devices in Use Now: None Appearance: 81 yo M in nAd, aAOx3 Eyes: No Scleral Icterus, PERRLA Ears/Nose/Mouth/Throat: NL Teeth, Lips, Gums, Mucous Membranes Moist Neck: NL Appearance and Movements; NL JVP, Trachea Midline Respiratory: Symmetrical Chest Expansion and Respiratory Effort, Clear to Auscultation Cardiovascular: NL Sounds; No Murmurs; No JVD, RRR Abdominal: NL Sounds; No Tenderness; No Distention, - - Pigtalil drain in place in RLQ draining scant amount of serous fluid Extremities: No Edema, No Clubbing, Cyanosis Skin: No Rash or Ulcers, No Nodules or Sclerosis Neurological: Alert and Oriented x 3, NL Muscle Strength and Tone Result Diagrams: 12/28/16 08:49 12/28/16 08:49 Microbiology and Other Data: Microbiology 12/24/16 17:50 Stool Occult Blood (YUE) - Final Stool Assess/Plan/Problems-Billing Assessment: 81 yo M with h/o HTN, depression , diverticulits presents with SBO and intraabdominal fluid collection - Patient Problems (1) SBO (small bowel obstruction) Comment: NG tube removed on 12/26/16 appreciate surgical consult. SBO resoled. tolerating clears (2) Abdominal abscess Comment: suspect preforated diverticulitis. cont Fipro /Flagyl. s/p IR placed transcutaneus drain on 12/25/16 CT abd today shows decompressed abscess and several small micorabscesses. (3) Acute renal failure Comment: due to SBO/diverticulitis. cont IVF resolving ACEI on hold (4) HTN (hypertension) Comment: uncontrolled today lisinopril held due to renal failure. will increase Norvasc (5) DVT prophylaxis Comment: heparin sc Status and Disposition: inpatient
[2016-12-28] MEDS: Pantoprazole IV* 40 MG IV SCH (19:51)
[2016-12-28] MEDS: OLANzapine TAB* 2.5 MG PO SCH (21:33)
[2016-12-29] MEDS: metroNIDAZOLE IV 500 MG/100ML* 500 MG/100 ML BAG IVPB SCH (02:33)
[2016-12-29] MEDS: Ciprofloxacin 400MG IVPREMIX(* 400 MG/200 ML BAG IVPB SCH (05:26)
[2016-12-29] MEDS: D5W 1/2 NS KCl 20 Meq 1000 ML* 1,000 ML IV SCH ×2 (05:29→23:57)
[2016-12-29] MEDS: Heparin VIAL(*) 5000 UNITS/ML VIAL (FIVE THOUSAND) SUBCUT SCH ×3 (05:29→21:35)
[2016-12-29 07:12] LABS: Hematocrit 41 % (42-52); Hemoglobin 13.4 g/dl (14.0-18.0); Mean Corpuscular HGB Conc 33 g/dl (31-36); Mean Corpuscular Hemoglobin 29 pg (27-31); Mean Corpuscular Volume 90 fL (80-94); Mean Platelet Volume 8 um3 (7.4-10.4); Red Blood Count 4.55 10^6/ul (4.0-5.4); Red Cell Distribution Width 15 % (10.5-15)
[2016-12-29 07:31] LABS: Add Diff/Slide Review? Slide Review Added; Comments Flag Yes
[2016-12-29 07:32] LABS: BUN/Creatinine Ratio 9.4 (8-20); EGFR Non-African American 53.7 (>60); Magnesium 1.7 mg/dL (1.9-2.7); Potassium 3.7 mmol/L (3.5-5.0)
[2016-12-29] MEDS ORDERED: Magnesium Sulfate 2 GM IV* 2 GM/50 ML BAG IVPB ONE (08:21)
--- NOTE | 2016-12-29 08:36 | PN ---
Progress Note - Progress Note Date of Service: 12/29/16 SOAP: Subjective: - Patient appears comfortable in bed - c/o diarrhea, 2 loose bowel movements overnight, no c/o pain - Minimal PO intake w/o N/V Objective: - Vital signs stable, afebrile - Heart RRR no murmurs, lungs clear to auscultation - Abdomen softly distended with no tenderness or guarding. Hypoactive bowel sounds present - No signs of sepsis or peritonitis. Assessment: This is a 81-year old gentleman with SBO and POD#4 s/p CT-guided drainage of abdominal abscess likely secondary to ruptured diverticulitis. - Leukocytosis: WBC inclining, high this morning (18) - Diarrhea: ? Possible C.diff testing - SBO: improving with bowel movements and flatus Plan: - Continue IV antibiotics and drainage - Continue PO intake as tolerated - Follow clinically.
[2016-12-29] MEDS ORDERED: LORazepam TAB(*) 0.5 MG PO PRN (08:58)
--- NOTE | 2016-12-29 08:58 | PN ---
Subjective Date of Service: 12/29/16 Interval History: Pt still c/o diarrhea, no abd pain, scant drain output. Objective Active Medications: Amlodipine Besylate (Norvasc Tab*) 10 mg PO DAILY [facility] Bupropion HCl (Wellbutrin Sr Tab*) 150 mg PO DAILY [facility] Last Admin: 12/28/16 10:56 Dose: 150 mg Heparin Sodium (Porcine) (Heparin Vial(*)) 5,000 units SUBCUT Q8HR [facility] Last Admin: 12/29/16 05:29 Dose: 5,000 units Metronidazole/Sodium Chloride (Flagyl 500 Mg Ivpb*) 500 mg in 100 mls @ 100 mls /hr IVPB Q8H [facility] Last Admin: 12/29/16 02:33 Dose: 100 mls/hr Ciprofloxacin/Dextrose (Cipro 400 Mg Ivpremix(*)) 400 mg in 200 mls @ 200 mls/ hr IVPB 0500,1700 [facility] Last Admin: 12/29/16 05:26 Dose: 200 mls/hr Potassium Chloride/Dextrose (D5w 1/2 Ns Kcl 20 Meq 1000 Ml*) 1,000 mls @ 80 mls /hr IV PER RATE [facility] Last Admin: 12/29/16 05:29 Dose: 80 mls/hr Magnesium Sulfate (Magnesium Sulfate 2 Gm Iv*) 2 gm in 50 mls @ 50 mls/hr IVPB ONCE ONE Stop: 12/29/16 09:20 Lidocaine (Xylocaine 2% Viscous*) 20 ml SWISH SPIT TID PRN PRN Reason: PAIN Lorazepam (Ativan Inj*) 0.25 mg IV PUSH DAILY [facility] Last Admin: 12/28/16 09:06 Dose: 0.25 mg Olanzapine (Zyprexa Tab*) 2.5 mg PO BEDTIME [facility] Last Admin: 12/28/16 21:33 Dose: 2.5 mg Ondansetron HCl (Zofran Inj*) 4 mg IV Q4H PRN PRN Reason: NAUSEA/VOMITING Pantoprazole Sodium (Protonix Iv*) 40 mg IV Q24H [facility] Last Admin: 12/28/16 19:51 Dose: 40 mg Sertraline HCl (Zoloft*) 100 mg PO DAILY [facility] Last Admin: 12/28/16 10:29 Dose: 100 mg Vital Signs 12/28/16 12/28/16 12/28/16 09:06 10:06 11:39 Temperature 98.0 F Pulse Rate 73 Respiratory 18 16 16 Rate Blood Pressure 155/82 (mmHg) O2 Sat by Pulse 96 Oximetry 12/28/16 12/28/16 12/28/16 15:21 16:00 19:22 Temperature 98.1 F 99.1 F Pulse Rate 76 81 Respiratory 16 20 Rate Blood Pressure 154/71 133/64 (mmHg) O2 Sat by Pulse 98 98 98 Oximetry 12/28/16 12/28/16 12/29/16 19:24 23:25 03:26 Temperature 98.1 F 98.1 F Pulse Rate 71 72 Respiratory 18 16 16 Rate Blood Pressure 156/75 166/71 (mmHg) O2 Sat by Pulse 96 95 Oximetry 12/29/16 07:18 Temperature 98.1 F Pulse Rate 75 Respiratory 16 Rate Blood Pressure 152/70 (mmHg) O2 Sat by Pulse 94 Oximetry Oxygen Devices in Use Now: None Appearance: 81 yo M in nAD, aAOx3 Eyes: No Scleral Icterus, PERRLA Ears/Nose/Mouth/Throat: NL Teeth, Lips, Gums, Mucous Membranes Moist Neck: NL Appearance and Movements; NL JVP, Trachea Midline Respiratory: Symmetrical Chest Expansion and Respiratory Effort, Clear to Auscultation Cardiovascular: NL Sounds; No Murmurs; No JVD, RRR Abdominal: NL Sounds; No Tenderness; No Distention, No Hepatosplenomegaly, - - R LQ pigstail drain with scant purulent material Lymphatic: No Cervical Adenopathy Extremities: No Edema, No Clubbing, Cyanosis Skin: No Rash or Ulcers, No Nodules or Sclerosis Neurological: Alert and Oriented x 3, NL Muscle Strength and Tone Result Diagrams: 12/29/16 06:42 12/29/16 06:42 Microbiology and Other Data: Microbiology 12/24/16 17:50 Stool Occult Blood (YUE) - Final Stool Assess/Plan/Problems-Billing Assessment: 81 yo M with h/o HTN, depression , diverticulits presents with SBO and intraabdominal fluid collection - Patient Problems (1) SBO (small bowel obstruction) Comment: NG tube removed on 12/26/16 appreciate surgical consult. SBO resolved. tolerating clears (2) Abdominal abscess Comment: suspect preforated diverticulitis. On cipro /Flagyl with increasing leukocytosis. Reviewed polymicrobial abscess cx. will change antibiotics to Zosyn. s/p IR placed transcutaneus drain on 12/25/16 CT abd 12/28/16 shows decompressed abscess and several small micorabscesses. (3) Acute renal failure Comment: due to SBO/diverticulitis. cont IVF resolving ACEI on hold (4) HTN (hypertension) Comment: cont Norvasc (5) Depression Comment: stable, cont Wellbutrin and Zoloft (6) DVT prophylaxis Comment: heparin sc Status and Disposition: inpatient
[2016-12-29] MEDS ORDERED: Zosyn per Pharmacy* NOTE FOLLOW UP SCH (09:00)
[2016-12-29] MEDS: amLODIPine TAB* 5 MG PO SCH (09:04)
[2016-12-29] MEDS: Sertraline* 100 MG TAB PO SCH (09:04)
[2016-12-29] MEDS: buPROPion SR TAB.SR* 150 MG PO SCH (09:04)
--- NOTE | 2016-12-29 09:50 | PN ---
Progress Note - Progress Note Date of Service: 12/29/16 SOAP: Subjective: He feels "depressed" today No abdominal pain or N/V-tolerating some liquids He has had multiple loose BM's-not much substance with some liquid that he describes as "brown" He has been ambulating in the halls Objective: Temp Pulse Resp BP Pulse Ox 98.1 F 75 20 152/70 94 12/29/16 07:18 12/29/16 07:18 12/29/16 09:27 12/29/16 07:18 12/29/16 07:18 Intake & Output 12/27/16 12/28/16 12/29/16 12/30/16 06:59 06:59 06:59 06:59 Intake Total 3168 2852 2731 Output Total 1070 430 435 Balance 2098 2422 2296 Weight 150 lb Intake: IV Fluids 1118 1486 1591 ABX - CIPROFLOXACIN 326 219 D5W 1/2 NS 20 meq KCL 433 1486 1372 LR 359 IVPB 2050 781 220 ABX - CIPROFLOXACIN 200 418 ABX - FLAGYL 200 313 220 LR 1000 Mag 50 NS (0.9%) 650 Oral 0 575 920 Pigtail Drain 10 Output: NG Tube Drainage Amount 170 Pigtail Drain 175 40 60 Urine 725 300 375 Liquid Stool 60 Other 30 Other: Estimated Void Medium Large Large Date of Last Bowel 12/27/16 12/27/16 Movement # Bowel Movements 0 1 Estimated Stool Amount Medium Large Small Other Amount Description pigtail to RLQ # Voids 2 1 1 PEX: Comfortable in chair Abd is soft and slightly distended. Bowel sounds are present but occasionally high pitched. No mass or tenderness, no guarding. Drain in place with some thin yellow fluid Laboratory Last Values WBC 18.0 10^3/ul (3.5-10.8) H 12/29/16 06:42 RBC 4.55 10^6/ul (4.0-5.4) 12/29/16 06:42 Hgb 13.4 g/dl (14.0-18.0) L 12/29/16 06:42 Hct 41 % (42-52) L 12/29/16 06:42 MCV 90 fL (80-94) 12/29/16 06:42 MCH 29 pg (27-31) 12/29/16 06:42 MCHC 33 g/dl (31-36) 12/29/16 06:42 RDW 15 % (10.5-15) 12/29/16 06:42 Plt Count 326 10^3/ul (150-450) 12/29/16 06:42 MPV 8 um3 (7.4-10.4) 12/29/16 06:42 Immature Gran % (Auto) 5 % (0-9) 12/28/16 08:49 Neut % (Auto) 83.0 % (38-83) 12/29/16 06:42 Lymph % (Auto) 9.7 % (25-47) L 12/29/16 06:42 [place] % (Auto) 5.0 % (1-9) 12/29/16 06:42 Eos % (Auto) 2.0 % (0-6) 12/29/16 06:42 Baso % (Auto) 0.3 % (0-2) 12/29/16 06:42 Absolute Neuts (auto) 14.9 10^3/ul (1.5-7.7) H 12/29/16 06:42 Absolute Lymphs (auto) 1.7 10^3/ul (1.0-4.8) 12/29/16 06:42 Absolute Monos (auto) 0.9 10^3/ul (0-0.8) H 12/29/16 06:42 Absolute Eos (auto) 0.4 10^3/ul (0-0.6) 12/29/16 06:42 Absolute Basos (auto) 0.1 10^3/ul (0-0.2) 12/29/16 06:42 Absolute Nucleated RBC 0.01 10^3/ul 12/29/16 06:42 Neutrophils % 84 % (38-83) H 12/28/16 08:49 Band Neutrophils % 2 % (0-8) 12/28/16 08:49 Lymphocytes % 4 % (25-47) L 12/28/16 08:49 Monocytes % 5 % (0-13) 12/28/16 08:49 Eosinophils % 2 % (0-6) 12/28/16 08:49 Metamyelocytes % 3 % (0-2) H 12/27/16 06:42 Myelocytes % 3 % (0-1) H 12/28/16 08:49 Nucleated RBC % 0 12/29/16 06:42 Normal RBC Morphology Normal (Normal) 12/28/16 08:49 INR (Anticoag Therapy) 1.06 (0.89-1.11) 12/24/16 19:07 APTT 26.7 seconds (26.0-36.3) 12/24/16 19:07 Sodium 138 mmol/L (133-145) 12/29/16 06:42 Potassium 3.7 mmol/L (3.5-5.0) 12/29/16 06:42 Chloride 108 mmol/L (101-111) 12/29/16 06:42 Carbon Dioxide 24 mmol/L (22-32) 12/29/16 06:42 Anion Gap 6 mmol/L (2-11) 12/29/16 06:42 BUN 12 mg/dL (6-24) 12/29/16 06:42 Creatinine 1.28 mg/dL (0.67-1.17) H 12/29/16 06:42 Est GFR ( Amer) 69.0 (>60) 12/29/16 06:42 Est GFR (Non-Af Amer) 53.7 (>60) 12/29/16 06:42 BUN/Creatinine Ratio 9.4 (8-20) 12/29/16 06:42 Glucose 146 mg/dL (70-100) H 12/29/16 06:42 Calcium 8.0 mg/dL (8.6-10.3) L 12/29/16 06:42 Phosphorus 2.4 mg/dL (2.5-5.0) L 12/27/16 06:41 Magnesium 1.7 mg/dL (1.9-2.7) L 12/29/16 06:42 Total Bilirubin 0.50 mg/dL (0.2-1.0) 12/26/16 08:26 AST 14 U/L (13-39) 12/26/16 08:26 ALT 11 U/L (7-52) 12/26/16 08:26 Alkaline Phosphatase 73 U/L (34-104) 12/26/16 08:26 Total Protein 6.0 g/dL (6.4-8.9) L 12/26/16 08:26 Albumin 3.0 g/dL (3.2-5.2) L 12/26/16 08:26 Globulin 3.0 g/dL (2-4) 12/26/16 08:26 Albumin/Globulin Ratio 1.0 (1-3) 12/26/16 08:26 Ur Random Creatinine 122.01 mg/dL 12/25/16 03:00 Ur Random Sodium 44 mmol/L 12/25/16 03:00 CT from yesterday reviewed Assessment: Intra-abdominal abscess s/p percutaneous drainage--presumed diverticular perforation SBO-having loose BM's without N/V Leukocytosis--slightly higher today. Plan: Continue IV abx-will change to Zosyn today Clear liquids Drainage I reviewed the CT from yesterday with patient and son. This shows the abscess to be well drained and the catheter to be in good position. There remains some proximal small bowel distension that appears to taper down into the area of inflammation/abscess cavity. Contrast appears to go through this area however. Clinically he is doing well although still having diarrhea his exam is benign. Increased WBC is concerning as is the dilated small bowel on CT scan. I discussed this with the patient and son-I think the next 24-48 hours will be crucial in determining if non-operative management will be successful. Will follow him clinically and if WBC continues to increase and he does not tolerate his increase his oral intake he will most likely require a laparotomy. Will repeat WBC in AM and continue to follow.
[2016-12-29 10:17] LABS: Eosinophils % 1 % (0-6); Immature Granulocytes 5 % (0-9); Metamyelocytes % 2 % (0-2); Myelocytes % 1 % (0-1); Neutrophil % 77 % (38-83); RBC Morphology Normal (Normal); Reactive Lymph % 1 % (0-6)
--- NOTE | 2016-12-29 10:47 | PN ---
Progress Note - Progress Note Date of Service: 12/29/16 SOAP: Subjective: Patient without any specific pain complaints. Expresses desire to go home. Objective: [] Selected Entries 12/29/16 12/29/16 12/29/16 07:18 08:00 09:27 Temperature 98.1 F Temperature Oral Source Pulse Rate 75 Respiratory 20 Rate Blood Pressure 152/70 (mmHg) Blood Pressure 90 Mean O2 Sat by Pulse 94 Oximetry NAD, AAO x 3 Abdomen is soft, non-tender Drain in place. Dressing is CDI. Bag with small amount of bermudez mucoid mixed fluid Output: 12/26- 50 mL 12/27- 175 mL 12/28- 40 mL 12/29- 60 mL Laboratory Tests 12/24/16 12/25/16 12/26/16 19:07 07:23 08:28 WBC 13.5 H 13.4 H 16.7 H 12/27/16 12/28/16 12/29/16 06:42 08:49 06:42 WBC 14.5 H 16.2 H 18.0 H Assessment: 81 yom POD # 4 s/p placement of 12 Egyptian pigtail drain into left of midline peritoneal abscess from RLQ percutaneous site with CT guidance. Drain continues to drain mucoid mixed fluid and the leukocytosis has steadily increased since drain placement. Plan: 1. Continue drainage. 2. If output ceases and patient continues to not improve, then drain study with potential replacement, may be indicated. 3. Is antibiotic therapy specific to cultures from the abscess cavity?
[2016-12-29] MEDS: ZOSYN 3.375 GM Q8H per EXTENDED INFUSION IVPB SCH ×2 (17:26)
[2016-12-29] MEDS: Pantoprazole IV* 40 MG IV SCH (19:32)
[2016-12-29] MEDS: OLANzapine TAB* 2.5 MG PO SCH (21:35)
[2016-12-30] MEDS: ZOSYN 3.375 GM Q8H per EXTENDED INFUSION IVPB SCH ×6 (00:46→16:59)
[2016-12-30] MEDS: Heparin VIAL(*) 5000 UNITS/ML VIAL (FIVE THOUSAND) SUBCUT SCH ×3 (05:33→22:12)
[2016-12-30 05:56] LABS: Albumin 2.3 g/dL (3.2-5.2); BUN/Creatinine Ratio 7.7 (8-20); Calcium 7.3 mg/dL (8.6-10.3); EGFR African American 76.6 (>60); EGFR Non-African American 59.5 (>60); Globulin 2.6 g/dL (2-4); Total Bilirubin 0.4 mg/dL (0.2-1.0); Total Protein 4.9 g/dL (6.4-8.9)
[2016-12-30 06:05] LABS: Potassium 4.1 mmol/L (3.5-5.0)
[2016-12-30] MEDS: buPROPion SR TAB.SR* 150 MG PO SCH (08:09)
[2016-12-30] MEDS: Sertraline* 100 MG TAB PO SCH (08:10)
[2016-12-30] MEDS: amLODIPine TAB* 5 MG PO SCH (08:10)
--- NOTE | 2016-12-30 09:19 | PN ---
Progress Note - Progress Note Date of Service: 12/30/16 Note: Surgery Mr. Clarke denies problems, his son says he thinks his color is better today. Mr. Clarke was in the bathroom when I arrived, having a BM, which was diarrheal. He does not want more solid food. While eating breakfast this morning, he developed some "heartburn" which he said has happened several times over the last few days. Vital Signs 12/29/16 12/29/16 12/29/16 09:27 11:20 11:27 Temperature 98.0 F Pulse Rate 84 Respiratory 20 16 18 Rate Blood Pressure 144/75 (mmHg) O2 Sat by Pulse 99 Oximetry 12/29/16 12/29/16 12/29/16 15:25 16:00 19:11 Temperature 99.4 F 98.9 F Pulse Rate 79 82 Respiratory 20 19 Rate Blood Pressure 145/71 144/69 (mmHg) O2 Sat by Pulse 94 94 96 Oximetry 12/29/16 12/29/16 12/30/16 19:25 23:46 03:29 Temperature 97.6 F 98.2 F Pulse Rate 76 68 Respiratory 18 16 16 Rate Blood Pressure 142/70 155/69 (mmHg) O2 Sat by Pulse 96 96 Oximetry 12/30/16 07:22 Temperature 98.1 F Pulse Rate 77 Respiratory 16 Rate Blood Pressure 160/72 (mmHg) O2 Sat by Pulse 93 Oximetry Abd: good BS, soft, non-tender Drain in place with scant purulent drainage in it (emptied early in the morning) Intake & Output 12/29/16 12/30/16 12/30/16 22:59 06:59 14:59 Intake Total 730 1427.5 Output Total 700 755 Balance 30 672.5 Intake: IV Fluids 1177.5 ABX - PIPERACILLIN 186.5 D5W 1/2 NS 20 meq KCL 991 Oral 730 250 Output: Pigtail Drain 30 Urine 700 725 Other: Date of Last Bowel 12/30/16 Movement Estimated Stool Amount Small A/P: Gradual improvement; continue diet at fulls, will add Tums to regimen. Await today's labs and results of c. diff. testing.
[2016-12-30] MEDS: Calcium Carbonate CHEW TAB* 500 MG (TUMS) PO PRN ×2 (09:50→16:59)
[2016-12-30 11:06] LABS: Hematocrit 41 % (42-52); Hemoglobin 13.4 g/dl (14.0-18.0); Mean Corpuscular HGB Conc 33 g/dl (31-36); Mean Corpuscular Hemoglobin 30 pg (27-31); Mean Corpuscular Volume 91 fL (80-94); Mean Platelet Volume 8 um3 (7.4-10.4); Red Blood Count 4.55 10^6/ul (4.0-5.4); Red Cell Distribution Width 15 % (10.5-15); White Blood Count 16.2 10^3/ul (3.5-10.8)
[2016-12-30 11:17] LABS: Add Diff/Slide Review? Slide Review Added; Comments Flag Yes
[2016-12-30 11:40] LABS: Eosinophils % 1 % (0-6); Immature Granulocytes 5 % (0-9); Metamyelocytes % 2 % (0-2); Neutrophil % 86 % (38-83); RBC Morphology Normal (Normal)
[2016-12-30] MEDS: D5W 1/2 NS KCl 20 Meq 1000 ML* 1,000 ML IV SCH (12:58)
--- NOTE | 2016-12-30 13:45 | PN ---
Subjective Date of Service: 12/30/16 Interval History: Pt has had poor appetite. no BM since a small loose BM yesterday morning, denies abd pain Objective Active Medications: Amlodipine Besylate (Norvasc Tab*) 10 mg PO DAILY [facility] Last Admin: 12/30/16 08:10 Dose: 10 mg Bupropion HCl (Wellbutrin Sr Tab*) 150 mg PO DAILY [facility] Last Admin: 12/30/16 08:09 Dose: 150 mg Calcium Carbonate (Tums*) 500 mg PO Q4H PRN PRN Reason: HEARTBURN Last Admin: 12/30/16 09:50 Dose: 500 mg Heparin Sodium (Porcine) (Heparin Vial(*)) 5,000 units SUBCUT Q8HR [facility] Last Admin: 12/30/16 05:33 Dose: 5,000 units Potassium Chloride/Dextrose (D5w 1/2 Ns Kcl 20 Meq 1000 Ml*) 1,000 mls @ 80 mls /hr IV PER RATE [facility] Last Admin: 12/30/16 12:58 Dose: 80 mls/hr Piperacillin Sod/Tazobactam (Sod 3.375 gm/ Sodium Chloride) 100 mls @ 25 mls/ hr IVPB Q8H [facility] Last Admin: 12/30/16 08:10 Dose: 25 mls/hr Lidocaine (Xylocaine 2% Viscous*) 20 ml SWISH SPIT TID PRN PRN Reason: PAIN Lorazepam (Ativan Tab(*)) 0.25 mg PO Q8H PRN PRN Reason: ANXIETY Last Admin: 12/29/16 09:27 Dose: 0.25 mg Olanzapine (Zyprexa Tab*) 2.5 mg PO BEDTIME [facility] Last Admin: 12/29/16 21:35 Dose: 2.5 mg Ondansetron HCl (Zofran Inj*) 4 mg IV Q4H PRN PRN Reason: NAUSEA/VOMITING Pantoprazole Sodium (Protonix Iv*) 40 mg IV Q24H [facility] Last Admin: 12/29/16 19:32 Dose: 40 mg Pharmacy Consult (Zosyn Per Pharmacy*) 1 note FOLLOW UP .ZOSYN PER PHARMACY [facility] Sertraline HCl (Zoloft*) 100 mg PO DAILY [facility] Last Admin: 12/30/16 08:10 Dose: 100 mg Vital Signs 12/29/16 12/29/16 12/29/16 15:25 16:00 19:11 Temperature 99.4 F 98.9 F Pulse Rate 79 82 Respiratory 20 19 Rate Blood Pressure 145/71 144/69 (mmHg) O2 Sat by Pulse 94 94 96 Oximetry 12/29/16 12/29/16 12/30/16 19:25 23:46 03:29 Temperature 97.6 F 98.2 F Pulse Rate 76 68 Respiratory 18 16 16 Rate Blood Pressure 142/70 155/69 (mmHg) O2 Sat by Pulse 96 96 Oximetry 12/30/16 12/30/16 12/30/16 07:22 08:00 12:15 Temperature 98.1 F 98.1 F Pulse Rate 77 80 Respiratory 16 16 16 Rate Blood Pressure 160/72 142/68 (mmHg) O2 Sat by Pulse 93 93 93 Oximetry Oxygen Devices in Use Now: None Appearance: 81 yo m in NAD,m AAOx3 Eyes: No Scleral Icterus, PERRLA Ears/Nose/Mouth/Throat: NL Teeth, Lips, Gums, Mucous Membranes Moist Neck: NL Appearance and Movements; NL JVP, Trachea Midline Respiratory: Symmetrical Chest Expansion and Respiratory Effort, Clear to Auscultation Cardiovascular: NL Sounds; No Murmurs; No JVD, RRR Abdominal: - - mild distention, BS+, soft, NT, pigtail drain with scant purulent material Lymphatic: No Cervical Adenopathy Extremities: No Edema, No Clubbing, Cyanosis Skin: No Rash or Ulcers, No Nodules or Sclerosis Neurological: Alert and Oriented x 3, NL Muscle Strength and Tone Result Diagrams: 12/30/16 10:52 12/30/16 04:25 Microbiology and Other Data: Microbiology 12/24/16 17:50 Stool Occult Blood (YUE) - Final Stool Assess/Plan/Problems-Billing Assessment: 81 yo M with h/o HTN, depression , diverticulits presents with SBO and intraabdominal fluid collection - Patient Problems (1) SBO (small bowel obstruction) Comment: NG tube removed on 12/26/16 appreciate surgical consult. SBO resolved. tolerating full liquids (2) Abdominal abscess Comment: suspect preforated diverticulitis. On cipro /Flagyl with increasing leukocytosis, switched to Zosyn on 12/29/16. s/p IR placed transcutaneus drain on 12/25/16 CT abd 12/28/16 shows decompressed abscess and several small microabscesses. (3) Acute renal failure Comment: due to SBO/diverticulitis. cont IVF resolving ACEI on hold (4) HTN (hypertension) Comment: cont Norvasc (5) Depression Comment: stable, cont Wellbutrin and Zoloft (6) Metabolic acidosis Comment: mild, non anion gap metabolic acidosis, due to IVF and renal failure. will start Na bicarb AC. (7) DVT prophylaxis Comment: heparin sc Status and Disposition: inpatient
[2016-12-30] MEDS: Sodium Bicarbonate (ANTACID)* 650 MG TAB PO SCH (16:59)
[2016-12-30] MEDS: Pantoprazole IV* 40 MG IV SCH (20:32)
[2016-12-30] MEDS: OLANzapine TAB* 2.5 MG PO SCH (20:32)
[2016-12-31] MEDS: ZOSYN 3.375 GM Q8H per EXTENDED INFUSION IVPB SCH ×6 (00:42→17:18)
[2016-12-31] MEDS: Heparin VIAL(*) 5000 UNITS/ML VIAL (FIVE THOUSAND) SUBCUT SCH ×3 (06:18→21:36)
[2016-12-31 06:50] LABS: Hematocrit 39 % (42-52); Hemoglobin 12.9 g/dl (14.0-18.0); Mean Corpuscular HGB Conc 33 g/dl (31-36); Mean Corpuscular Hemoglobin 30 pg (27-31); Mean Corpuscular Volume 90 fL (80-94); Mean Platelet Volume 8 um3 (7.4-10.4); Red Blood Count 4.34 10^6/ul (4.0-5.4); Red Cell Distribution Width 15 % (10.5-15); White Blood Count 17.1 10^3/ul (3.5-10.8)
[2016-12-31 06:54] LABS: Add Diff/Slide Review? Slide Review Added; Comments Flag Yes
[2016-12-31 07:28] LABS: Eosinophils % 1 % (0-6); Immature Granulocytes 2 % (0-9); Myelocytes % 1 % (0-1); Neutrophil % 83 % (38-83); RBC Morphology Normal (Normal)
[2016-12-31] MEDS: Sodium Bicarbonate (ANTACID)* 650 MG TAB PO SCH ×3 (07:35→17:17)
--- NOTE | 2016-12-31 07:48 | PN ---
Progress Note - Progress Note Date of Service: 12/31/16 SOAP: This is a 81-year old gentleman POD#6 s/p CT guided drain placement and drainage of abdominal abscess secondary to diverticular disease. Subjective: - c/o no appetite, several diarrheal BM yesterday - No c/o pain, N/V, chest pain, SOB. - Patient reports "heartburn" well controlled with TUMs. Objective: - Patient appears comfortable in bed. - Vital signs stable - Heart RRR no murmur, lungs clear to auscultation. - Abdomen: soft, mild distended, non-tender to palpation, dressing CDI, hypoactive high pitch bowel sound noted. Intake & Output 12/30/16 12/31/16 12/31/16 22:59 06:59 14:59 Intake Total 480 516 Output Total 30 375 Balance 450 141 Intake: IV Fluids 516 ABX - PIPERACILLIN 186 D5W 1/2 NS 20 meq KCL 330 Oral 480 Output: Pigtail Drain 30 Urine 375 Other: Estimated Void Medium # Voids 1 Laboratory Tests 12/30/16 12/31/16 04:25 06:34 WBC 17.1 H Albumin 2.3 L Prealbumin 12 L Assessment: - Leukocytosis: WBC remains elevated (17 this am) - SBO: diarrheal BMs, no n/v Plan: - continue IV antibiotics (Zosyn) - Continue full liquid diet as tolerated - Consider repeat CT
--- NOTE | 2016-12-31 08:07 | PN ---
Subjective Date of Service: 12/31/16 Interval History: pt feels "weak". Appetite poor. Has had 1-2 liquid stools/24H, no abd pain Objective Active Medications: Amlodipine Besylate (Norvasc Tab*) 10 mg PO DAILY [facility] Last Admin: 12/30/16 08:10 Dose: 10 mg Bupropion HCl (Wellbutrin Sr Tab*) 150 mg PO DAILY [facility] Last Admin: 12/30/16 08:09 Dose: 150 mg Calcium Carbonate (Tums*) 500 mg PO Q4H PRN PRN Reason: HEARTBURN Last Admin: 12/30/16 16:59 Dose: 500 mg Heparin Sodium (Porcine) (Heparin Vial(*)) 5,000 units SUBCUT Q8HR [facility] Last Admin: 12/31/16 06:18 Dose: 5,000 units Potassium Chloride/Dextrose (D5w 1/2 Ns Kcl 20 Meq 1000 Ml*) 1,000 mls @ 80 mls /hr IV PER RATE [facility] Last Admin: 12/30/16 12:58 Dose: 80 mls/hr Piperacillin Sod/Tazobactam (Sod 3.375 gm/ Sodium Chloride) 100 mls @ 25 mls/ hr IVPB Q8H [facility] Last Admin: 12/31/16 07:37 Dose: 25 mls/hr Lidocaine (Xylocaine 2% Viscous*) 20 ml SWISH SPIT TID PRN PRN Reason: PAIN Lisinopril (Prinivil Tab*) 10 mg PO DAILY [facility] Lorazepam (Ativan Tab(*)) 0.25 mg PO Q8H PRN PRN Reason: ANXIETY Last Admin: 12/29/16 09:27 Dose: 0.25 mg Olanzapine (Zyprexa Tab*) 2.5 mg PO BEDTIME [facility] Last Admin: 12/30/16 20:32 Dose: 2.5 mg Ondansetron HCl (Zofran Inj*) 4 mg IV Q4H PRN PRN Reason: NAUSEA/VOMITING Pantoprazole Sodium (Protonix Iv*) 40 mg IV Q24H [facility] Last Admin: 12/30/16 20:32 Dose: 40 mg Pharmacy Consult (Zosyn Per Pharmacy*) 1 note FOLLOW UP .ZOSYN PER PHARMACY [facility] Sertraline HCl (Zoloft*) 100 mg PO DAILY [facility] Last Admin: 12/30/16 08:10 Dose: 100 mg Sodium Bicarbonate (Sodium Bicarbonate (Antacid)*) 650 mg PO AC [facility] Last Admin: 12/31/16 07:35 Dose: 650 mg Vital Signs 12/30/16 12/30/16 12/30/16 12:15 15:24 15:31 Temperature 98.1 F 98.0 F Pulse Rate 80 80 Respiratory 16 16 Rate Blood Pressure 142/68 144/73 (mmHg) O2 Sat by Pulse 93 96 96 Oximetry 12/30/16 12/30/16 12/31/16 20:33 20:40 00:20 Temperature 98.1 F 97.7 F Pulse Rate 82 74 Respiratory 14 16 16 Rate Blood Pressure 132/60 168/73 (mmHg) O2 Sat by Pulse 97 96 Oximetry 12/31/16 12/31/16 03:44 07:33 Temperature 97.8 F 98.2 F Pulse Rate 79 78 Respiratory 16 18 Rate Blood Pressure 168/78 162/67 (mmHg) O2 Sat by Pulse 95 95 Oximetry Oxygen Devices in Use Now: None Appearance: 81 yo M in nAd, aAOx3 Eyes: No Scleral Icterus, PERRLA Ears/Nose/Mouth/Throat: NL Teeth, Lips, Gums, Mucous Membranes Moist Neck: NL Appearance and Movements; NL JVP, Trachea Midline Respiratory: Symmetrical Chest Expansion and Respiratory Effort, Clear to Auscultation Cardiovascular: NL Sounds; No Murmurs; No JVD, RRR Abdominal: - - distended, soft, NT, BS hypoactive Lymphatic: No Cervical Adenopathy Extremities: No Edema, No Clubbing, Cyanosis Skin: No Rash or Ulcers, No Nodules or Sclerosis Neurological: Alert and Oriented x 3, NL Muscle Strength and Tone Result Diagrams: 12/31/16 06:34 12/30/16 04:25 Microbiology and Other Data: Microbiology 12/24/16 17:50 Stool Occult Blood (YUE) - Final Stool Assess/Plan/Problems-Billing Assessment: 81 yo M with h/o HTN, depression , diverticulits presents with SBO and intraabdominal fluid collection - Patient Problems (1) SBO (small bowel obstruction) Comment: NG tube removed on 12/26/16 appreciate surgical consult. SBO resolved. tolerating full liquids, but poor PO intake. (2) Abdominal abscess Comment: suspect preforated diverticulitis. On cipro /Flagyl with increasing leukocytosis, switched to Zosyn on 12/29/16. s/p IR placed transcutaneus drain on 12/25/16 CT abd 12/28/16 shows decompressed abscess and several small microabscesses. Management as per surgical service (3) Acute renal failure Comment: due to SBO/diverticulitis. cont IVF resolving (4) HTN (hypertension) Comment: uncontrolled, cont Norvasc, restarting lisinopril (5) Depression Comment: stable, cont Wellbutrin and Zoloft (6) Metabolic acidosis Comment: mild, non anion gap metabolic acidosis, due to IVF and renal failure. Strated on Na bicarb AC on 12/30/16. (7) DVT prophylaxis Comment: heparin sc Status and Disposition: inpatient
--- NOTE | 2016-12-31 08:39 | PN ---
Progress Note - Progress Note Date of Service: 12/31/16 SOAP: Subjective: Without specific complaint other than being weak and having a poor appetite He is having bowel movements and passing flatus-firmer now, No abdominal pain. No N/V and he ambulated a little in the halls yesterday. Objective: Temp Pulse Resp BP Pulse Ox 98.2 F 78 18 162/67 95 12/31/16 07:33 12/31/16 07:33 12/31/16 07:58 12/31/16 07:33 12/31/16 07:58 Intake & Output 12/29/16 12/30/16 12/31/16 01/01/17 06:59 06:59 06:59 06:59 Intake Total 2731 3039.5 2209 Output Total 435 1455 610 Balance 2296 1584.5 1599 Weight 150 lb Intake: IV Fluids 1591 1177.5 516 ABX - CIPROFLOXACIN 219 ABX - PIPERACILLIN 186.5 186 D5W 1/2 NS 20 meq KCL 1372 991 330 IVPB 220 532 803 ABX - FLAGYL 220 ABX - PIPERACILLIN 50 125 D5W 1/2 NS 20 meq KCL 432 678 Mag 50 Oral 920 1330 890 Output: Pigtail Drain 60 30 35 Urine 375 1425 575 Other: Estimated Void Large Small Medium Date of Last Bowel 12/30/16 Movement # Bowel Movements 1 Estimated Stool Amount Small Small # Voids 1 1 PEX: Comfortable in bed Abd is soft and slightly distended. Bowel sounds are present and are normoactive. Drain is in place with some bermudez thicker fluid in bag. There is no tenderness or mass, no guarding Assessment: Abdominal abscess presumed diverticular s/p percutaneous drainage SBO-slightly improved clinically but still with poor po intake Persistent Leukocytosis Failure to show progressive improvement Plan: Continue full liquids IV antibiotics and drain Follow up CT scan-depending on findings I think he will require laparotomy in next few days. Will discuss with son.
[2016-12-31] MEDS: Lisinopril TAB* 10 MG PO SCH (09:16)
[2016-12-31] MEDS: buPROPion SR TAB.SR* 150 MG PO SCH (09:16)
[2016-12-31] MEDS: Sertraline* 100 MG TAB PO SCH (09:16)
[2016-12-31] MEDS: amLODIPine TAB* 5 MG PO SCH (09:16)
[2016-12-31] MEDS: D5W 1/2 NS KCl 20 Meq 1000 ML* 1,000 ML IV SCH (15:20)
[2016-12-31] MEDS: Pantoprazole IV* 40 MG IV SCH (19:42)
[2016-12-31] MEDS: OLANzapine TAB* 2.5 MG PO SCH (21:35)
[2017-01-01] MEDS: ZOSYN 3.375 GM Q8H per EXTENDED INFUSION IVPB SCH ×6 (00:23→16:32)
[2017-01-01 06:05] LABS: Hematocrit 39 % (42-52); Mean Corpuscular HGB Conc 33 g/dl (31-36); Mean Corpuscular Hemoglobin 30 pg (27-31); Mean Corpuscular Volume 90 fL (80-94); Mean Platelet Volume 8 um3 (7.4-10.4); Red Blood Count 4.37 10^6/ul (4.0-5.4); Red Cell Distribution Width 15 % (10.5-15)
[2017-01-01] MEDS: Heparin VIAL(*) 5000 UNITS/ML VIAL (FIVE THOUSAND) SUBCUT SCH ×3 (06:19→22:08)
[2017-01-01 06:23] LABS: ALT 23 U/L (7-52); AST 26 U/L (13-39); Albumin 2.9 g/dL (3.2-5.2); Alkaline Phosphatase 47 U/L (34-104); Anion Gap 6 mmol/L (2-11); BUN/Creatinine Ratio 6.7 (8-20); Blood Urea Nitrogen 8 mg/dL (6-24); CO2 Carbon Dioxide 25 mmol/L (22-32); Calcium 8.1 mg/dL (8.6-10.3); Chloride 106 mmol/L (101-111); EGFR African American 74.4 (>60); EGFR Non-African American 57.8 (>60); Globulin 2.7 g/dL (2-4); Glucose 149 mg/dL (70-100); Potassium 3.8 mmol/L (3.5-5.0); Sodium 137 mmol/L (133-145); Total Protein 5.6 g/dL (6.4-8.9)
[2017-01-01] MEDS: Sodium Bicarbonate (ANTACID)* 650 MG TAB PO SCH ×3 (07:50→16:34)
[2017-01-01] MEDS: Sertraline* 100 MG TAB PO SCH (08:28)
[2017-01-01] MEDS: amLODIPine TAB* 5 MG PO SCH (08:28)
[2017-01-01] MEDS: Lisinopril TAB* 10 MG PO SCH (08:28)
[2017-01-01] MEDS: buPROPion SR TAB.SR* 150 MG PO SCH (08:28)
--- NOTE | 2017-01-01 08:36 | PN ---
Progress Note - Progress Note Date of Service: 01/01/17 SOAP: Subjective: Without complaint today other than he had two loose BM's last night. Passing some flatus. He ate some lasagna for dinner-no N/V and no abdominal pain. Objective: Temp Pulse Resp BP Pulse Ox 98.6 F 88 15 155/79 94 01/01/17 07:18 01/01/17 07:18 01/01/17 08:00 01/01/17 07:18 01/01/17 08:00 Intake & Output 12/30/16 12/31/16 01/01/17 01/02/17 06:59 06:59 06:59 06:59 Intake Total 3039.5 2209 2272 Output Total 6785 733 1833 Balance 1584.5 1599 1237 Intake: IV Fluids 1177.5 516 1227 ABX - PIPERACILLIN 186.5 186 D5W 1/2 NS 20 meq KCL 868 618 2912 IVPB 532 803 345 ABX - PIPERACILLIN 50 125 345 D5W 1/2 NS 20 meq KCL 432 678 Mag 50 Oral 1330 890 700 Output: Pigtail Drain 30 35 60 Urine 1425 575 975 Other: Estimated Void Small Medium Medium Medium Date of Last Bowel 12/30/16 12/31/16 Movement # Bowel Movements 1 Estimated Stool Amount Small Medium # Voids 1 1 PEX: Comfortable Lungs are clear Abd is soft and slightly distended. Bowel sounds are present and are not high pitched. Drain is in place with some thin bermudez fluid in bag There is no tenderness or mass. Laboratory Last Values WBC 15.0 10^3/ul (3.5-10.8) H 01/01/17 05:55 RBC 4.37 10^6/ul (4.0-5.4) 01/01/17 05:55 Hgb 13.0 g/dl (14.0-18.0) L 01/01/17 05:55 Hct 39 % (42-52) L 01/01/17 05:55 MCV 90 fL (80-94) 01/01/17 05:55 MCH 30 pg (27-31) 01/01/17 05:55 MCHC 33 g/dl (31-36) 01/01/17 05:55 RDW 15 % (10.5-15) 01/01/17 05:55 Plt Count 253 10^3/ul (150-450) 01/01/17 05:55 MPV 8 um3 (7.4-10.4) 01/01/17 05:55 Immature Gran % (Auto) 2 % (0-9) 12/31/16 06:34 Neut % (Auto) 81.8 % (38-83) 12/31/16 06:34 Lymph % (Auto) 10.5 % (25-47) L 12/31/16 06:34 Trinity % (Auto) 4.9 % (1-9) 12/31/16 06:34 Eos % (Auto) 1.7 % (0-6) 12/31/16 06:34 Baso % (Auto) 1.1 % (0-2) 12/31/16 06:34 Absolute Neuts (auto) 14.0 10^3/ul (1.5-7.7) H 12/31/16 06:34 Absolute Lymphs (auto) 1.8 10^3/ul (1.0-4.8) 12/31/16 06:34 Absolute Monos (auto) 0.8 10^3/ul (0-0.8) 12/31/16 06:34 Absolute Eos (auto) 0.3 10^3/ul (0-0.6) 12/31/16 06:34 Absolute Basos (auto) 0.2 10^3/ul (0-0.2) 12/31/16 06:34 Absolute Nucleated RBC 0.01 10^3/ul 12/31/16 06:34 Neutrophils % 83 % (38-83) 12/31/16 06:34 Band Neutrophils % 1 % (0-8) 12/31/16 06:34 Lymphocytes % 7 % (25-47) L 12/31/16 06:34 Reactive Lymphs % 1 % (0-6) 12/29/16 06:42 Monocytes % 6 % (0-13) 12/31/16 06:34 Eosinophils % 1 % (0-6) 12/31/16 06:34 Basophils % 1 % (0-2) 12/31/16 06:34 Metamyelocytes % 2 % (0-2) 12/30/16 10:52 Myelocytes % 1 % (0-1) 12/31/16 06:34 Nucleated RBC % 0 12/31/16 06:34 Normal RBC Morphology Normal (Normal) 12/31/16 06:34 INR (Anticoag Therapy) 1.06 (0.89-1.11) 12/24/16 19:07 APTT 26.7 seconds (26.0-36.3) 12/24/16 19:07 Sodium 137 mmol/L (133-145) 01/01/17 05:55 Potassium 3.8 mmol/L (3.5-5.0) 01/01/17 05:55 Chloride 106 mmol/L (101-111) 01/01/17 05:55 Carbon Dioxide 25 mmol/L (22-32) 01/01/17 05:55 Anion Gap 6 mmol/L (2-11) 01/01/17 05:55 BUN 8 mg/dL (6-24) 01/01/17 05:55 Creatinine 1.20 mg/dL (0.67-1.17) H 01/01/17 05:55 Est GFR ( Amer) 74.4 (>60) 01/01/17 05:55 Est GFR (Non-Af Amer) 57.8 (>60) 01/01/17 05:55 BUN/Creatinine Ratio 6.7 (8-20) L 01/01/17 05:55 Glucose 149 mg/dL (70-100) H 01/01/17 05:55 Calcium 8.1 mg/dL (8.6-10.3) L 01/01/17 05:55 Phosphorus 2.4 mg/dL (2.5-5.0) L 12/27/16 06:41 Magnesium 2.0 mg/dL (1.9-2.7) 12/30/16 04:25 Total Bilirubin 0.40 mg/dL (0.2-1.0) 01/01/17 05:55 Direct Bilirubin 0.00 mg/dL (0.03-0.18) L 01/01/17 05:55 Indirect Bilirubin [employer] 01/01/17 05:55 AST 26 U/L (13-39) 01/01/17 05:55 ALT 23 U/L (7-52) 01/01/17 05:55 Alkaline Phosphatase 47 U/L (34-104) 01/01/17 05:55 Total Protein 5.6 g/dL (6.4-8.9) L 01/01/17 05:55 Albumin 2.9 g/dL (3.2-5.2) L 01/01/17 05:55 Globulin 2.7 g/dL (2-4) 01/01/17 05:55 Albumin/Globulin Ratio 1.1 (1-3) 01/01/17 05:55 Prealbumin 12 mg/dL (18-38) L 12/30/16 04:25 Ur Random Creatinine 122.01 mg/dL 12/25/16 03:00 Ur Random Sodium 44 mmol/L 12/25/16 03:00 Assessment: Abdominal abscess presumed diverticular s/p percutaneous drainage Partial SBO-he is passing flatus and having loose BM's and tolerating small po, although still with poor po intake and little appetite Leukocytosis Plan: Continue IV antibiotics Repeat CT today-follow abscess cavity and small bowel distension I would like to avoid surgery if possible and he seems to be slowly improving-- no absolute indication for OR at this point but will see what CT shows today. All discussed with pt and son at bedside this morning and I will talk with son after CT done this afternoon.
[2017-01-01] MEDS: D5W 1/2 NS KCl 20 Meq 1000 ML* 1,000 ML IV SCH ×2 (09:24→22:41)
[2017-01-01] MEDS ORDERED: Iodixanol* (CONTRAST) 320 MG/ML 100 ML SDV IV ONE (11:32)
--- NOTE | 2017-01-01 13:37 | PN ---
Subjective Date of Service: 01/01/17 Interval History: HOSPITALIST PROGRESS NOTE Patient seen and examined at bedside. He feels a little better today. Appetite is still poor, but he tolerated lasagna for dinner last night and eggs this morning. Had 2 loose BMs last night , denies abdominal pain. Family History: Unchanged from Admission Social History: Unchanged from Admission Past Medical History: Unchanged from Admission Objective Active Medications: Amlodipine Besylate (Norvasc Tab*) 10 mg PO DAILY [facility] Last Admin: 01/01/17 08:28 Dose: 10 mg Bupropion HCl (Wellbutrin Sr Tab*) 150 mg PO DAILY [facility] Last Admin: 01/01/17 08:28 Dose: 150 mg Calcium Carbonate (Tums*) 500 mg PO Q4H PRN PRN Reason: HEARTBURN Last Admin: 12/30/16 16:59 Dose: 500 mg Heparin Sodium (Porcine) (Heparin Vial(*)) 5,000 units SUBCUT Q8HR [facility] Last Admin: 01/01/17 06:19 Dose: 5,000 units Potassium Chloride/Dextrose (D5w 1/2 Ns Kcl 20 Meq 1000 Ml*) 1,000 mls @ 80 mls /hr IV PER RATE [facility] Last Admin: 01/01/17 09:24 Dose: 80 mls/hr Piperacillin Sod/Tazobactam (Sod 3.375 gm/ Sodium Chloride) 100 mls @ 25 mls/ hr IVPB Q8H [facility] Last Admin: 01/01/17 08:27 Dose: 25 mls/hr Lidocaine (Xylocaine 2% Viscous*) 20 ml SWISH SPIT TID PRN PRN Reason: PAIN Lisinopril (Prinivil Tab*) 10 mg PO DAILY [facility] Last Admin: 01/01/17 08:28 Dose: 10 mg Lorazepam (Ativan Tab(*)) 0.25 mg PO Q8H PRN PRN Reason: ANXIETY Last Admin: 12/29/16 09:27 Dose: 0.25 mg Olanzapine (Zyprexa Tab*) 2.5 mg PO BEDTIME [facility] Last Admin: 12/31/16 21:35 Dose: 2.5 mg Ondansetron HCl (Zofran Inj*) 4 mg IV Q4H PRN PRN Reason: NAUSEA/VOMITING Pantoprazole Sodium (Protonix Iv*) 40 mg IV Q24H [facility] Last Admin: 12/31/16 19:42 Dose: 40 mg Pharmacy Consult (Zosyn Per Pharmacy*) 1 note FOLLOW UP .ZOSYN PER PHARMACY [facility] Sertraline HCl (Zoloft*) 100 mg PO DAILY [facility] Last Admin: 01/01/17 08:28 Dose: 100 mg Sodium Bicarbonate (Sodium Bicarbonate (Antacid)*) 650 mg PO AC [facility] Last Admin: 01/01/17 11:25 Dose: Not Given Vital Signs 01/01/17 01/01/17 01/01/17 07:18 08:00 11:23 Temperature 98.6 F 98.4 F Pulse Rate 88 83 Respiratory 15 18 15 Rate Blood Pressure 155/79 154/74 (mmHg) O2 Sat by Pulse 94 94 96 Oximetry Oxygen Devices in Use Now: Nasal Cannula Appearance: Pleasant elderly gentleman lying in bed in NAD. Eyes: No Scleral Icterus Ears/Nose/Mouth/Throat: Mucous Membranes Moist Neck: Trachea Midline Respiratory: Symmetrical Chest Expansion and Respiratory Effort, Clear to Auscultation Cardiovascular: RRR - Normal S1 and S2 Abdominal: - - Soft, mild distention, NT, BS+ Extremities: No Edema Neurological: Alert and Oriented x 3, NL Muscle Strength and Tone Lines/Tubes/Other Access: Clean, Dry and Intact Peripheral IV Nutrition: Taking PO's Result Diagrams: 01/01/17 05:55 01/01/17 05:55 Assess/Plan/Problems-Billing Assessment: Mr. Clarke is an 81 yo M with h/o HTN, anxiety, depression, diverticulits, who presented to ED [facility] c/o abdominal discomfort, N/V, found to have SBO and intraabdominal abscess. - Patient Problems (1) SBO (small bowel obstruction) Comment: - NG tube removed on 12/26/16 and tolerating regular diet well, despite poor appetite. (2) Abdominal abscess Comment: - Suspect secondary to diverticulitis. - Patient was on Cipro/Flagyl with increasing leukocytosis, so he was switched to Zosyn on 12/29/16. Culture revealed polymicrobial growth, sensitive to Zosyn. - s/p IR placed transcutaneus drain on 12/25/16. - CT abd 12/28/16 shows decompressed abscess and several small microabscesses. As per Surgery, plan for repeat CT today and then decide about possible surgery. - Patient denies any chest pain or dyspnea with exertion. EKG done 12/24 showed flat T on V2-V4 and repeat one showed no new changes. Patient is asymptomatic and does not require further w/u. RCRI is 1 predicting 1% risk of cardiac complications. (3) Acute renal failure Comment: - due to SBO/diverticulitis, but suspect some degree of CKD. - Continue to monitor. (4) HTN (hypertension) Comment: - Better controlled. - Continue Amlodpine and Lisinopril. (5) Depression Comment: - Continue Wellbutrin and Zoloft. (6) DVT prophylaxis Comment: - SQ heparin. Status and Disposition: Inpatient.
--- NOTE | 2017-01-01 15:25 | RAD ---
INDICATION: Follow-up abscess and small bowel obstruction COMPARISON: CT December 28, 2016 TECHNIQUE: Axial source images were obtained from the hemidiaphragms to the symphysis pubis following administration of oral and intravenous contrast. 85 mL Visipaque 320 was utilized. Coronal and sagittal reconstructed images were acquired. Lung bases: There is mild gravity dependent atelectasis right greater than left. Liver: The liver is normal in size. There probably several tiny cysts. There is no ductal dilatation. Gallbladder: There are no calcified gallstones. There is no evidence of wall thickening or pericholecystic fluid. Spleen: The spleen is normal in size. There are no masses. Pancreas: There is no focal pancreatic mass or ductal dilatation. Adrenal glands: There is no evidence of adrenal mass. Kidneys: There is right renal atrophy. Left kidney is normal in size. There are prompt nephrograms and there is prompt excretion bilaterally. There are no renal parenchymal masses. There is no evidence of nephrolithiasis. Adenopathy: There is no evidence of adenopathy by size criteria. Fluid collections: The dominant abscess is drained by the pigtail catheter. There are several adjacent microabscesses measuring up to 2.5 cm, unchanged. There is stranding of the adjacent perienteric fat. Vessels:There are no significant atherosclerotic changes involving the aorta. There is no focal aneurysm. The iliac vessels are normal in caliber. The IVC appears normal. GI tract: The upper GI tract is remarkable for several atonic loops of small bowel in the left mid abdomen the caudal-most loop of which is sharply angulated suggesting an adhesion perhaps related to the acute inflammatory process. The appearance unchanged. There are extensive diverticula of the sigmoid and descending colon. There is no obstruction. There is no free intraperitoneal air. Pelvic organs: The prostate and seminal vesicles appear normal Bladder: No gross abnormalities. Limited evaluation due to beam hardening artifact from right hip arthroplasty. Abdominal and pelvic soft tissues: The extraperitoneal abdominal and pelvic soft tissues appear normal.. Osseous structures: There are no acute osseous findings. Other: None IMPRESSION: THE DOMINANT ABSCESS IS LARGELY EVACUATED BY THE DRAINAGE CATHETER. THERE ARE SEVERAL ADJACENT MICROABSCESSES APPEARING UNCHANGED. THERE ARE SEVERAL DILATED LOOPS OF JEJUNUM IN THE LEFT MID ABDOMEN WITH FINDINGS MOST SUGGESTIVE OF A MILD PARTIAL OBSTRUCTION. OVERALL, THERE IS VERY LITTLE INTERVAL CHANGE.
[2017-01-01] MEDS: OLANzapine TAB* 2.5 MG PO SCH (20:43)
[2017-01-01] MEDS: Pantoprazole IV* 40 MG IV SCH (20:43)
[2017-01-02] MEDS: ZOSYN 3.375 GM Q8H per EXTENDED INFUSION IVPB SCH ×6 (00:35→17:11)
[2017-01-02] MEDS: Heparin VIAL(*) 5000 UNITS/ML VIAL (FIVE THOUSAND) SUBCUT SCH ×3 (05:37→21:07)
[2017-01-02 06:51] LABS: Hematocrit 39 % (42-52); Hemoglobin 12.5 g/dl (14.0-18.0); Mean Corpuscular HGB Conc 33 g/dl (31-36); Mean Corpuscular Hemoglobin 30 pg (27-31); Mean Corpuscular Volume 91 fL (80-94); Mean Platelet Volume 8 um3 (7.4-10.4); Red Blood Count 4.23 10^6/ul (4.0-5.4); Red Cell Distribution Width 16 % (10.5-15)
[2017-01-02 06:52] LABS: Add Diff/Slide Review? Slide Review Added; Comments Flag Yes
[2017-01-02 07:28] LABS: Immature Granulocytes 2 % (0-9); Myelocytes % 2 % (0-1); Neutrophil % 83 % (38-83)
[2017-01-02 07:29] LABS: RBC Morphology Normal (Normal)
--- NOTE | 2017-01-02 07:40 | PN ---
Progress Note - Progress Note Date of Service: 01/02/17 SOAP: Subjective: This is a 81-year old gentleman POD#8 s/p CT guided drainage of abdominal abscess and pigtail drain placement secondary to diverticular disease. - Patient c/o generalized weakness which is unchanged from previous days - Tolerating PO intake well without n/v or pain, c/o poor appetite - c/o loose stool - reports passing gas fine Objective: - Patient appear comfortable in bed with no acute stress. - Vital signs stable, heart RRR, lungs clear to auscultation - Abdomen softly distended, non-tender to palpation, hypoactive bowel sound present - Dressing CDI, minimal thin bermudez drainage in collection bag. Intake & Output 01/01/17 01/02/17 01/02/17 22:59 06:59 14:59 Intake Total 1793 483 Output Total 230 615 Balance 1563 -132 Intake: IV Fluids 1183 274 D5W 1/2 NS 20 meq KCL 1183 274 IVPB 110 109 ABX - PIPERACILLIN 110 109 Oral 480 100 Pigtail Drain 20 Output: Pigtail Drain 30 15 Urine 200 600 Other: Estimated Void Medium Date of Last Bowel 01/02/17 Movement # Bowel Movements 1 1 Estimated Stool Amount Large Small # Voids 1 Assessment: - SBO: slightly improved from loose bowel movements and flatus. - Leukocytosis - CT scan on 01/01 showed dominant abscess was largely evacuated by drainage catheter, there are several microabscesses size unchanged from previous CT. Several loops of dilated jejunum were noted in left left mid abdomen suggesting partial obstruction. Plan: - Continue IV Zosyn - Encourage PO intake as tolerated
[2017-01-02] MEDS: D5W 1/2 NS KCl 20 Meq 1000 ML* 1,000 ML IV SCH (08:28)
--- NOTE | 2017-01-02 08:30 | PN ---
Progress Note - Progress Note Date of Service: 01/02/17 SOAP: Subjective: One loose BM last night and is passing some flatus No N/V or abdominal pain--he has a poor appetite and is not eating well He is weak Objective: Temp Pulse Resp BP Pulse Ox 97.6 F 80 18 163/78 96 01/02/17 04:11 01/02/17 04:11 01/02/17 04:11 01/02/17 04:11 01/02/17 04:11 Intake & Output 12/31/16 01/01/17 01/02/17 01/03/17 06:59 06:59 06:59 06:59 Intake Total 2209 2272 3376 Output Total 610 1035 1245 Balance 1599 1237 2131 Weight 150 lb Intake: IV Fluids 516 1227 1457 ABX - PIPERACILLIN 186 D5W 1/2 NS 20 meq KCL 330 1227 1457 IVPB 803 345 219 ABX - PIPERACILLIN 125 345 219 D5W 1/2 NS 20 meq KCL 678 Oral 733 007 0511 Pigtail Drain 20 Output: Pigtail Drain 35 60 45 Urine 759 203 9329 Other: Estimated Void Medium Medium Medium Date of Last Bowel 12/31/16 01/02/17 Movement # Bowel Movements 1 1 Estimated Stool Amount Medium Small # Voids 1 1 1 PEX: Comfortable Lungs are clear Abd is soft and distended. Bowel sounds are present but hypoactive. There is no tenderness. The drain remains in place with some thin bermudez fluid in the bag. Assessment: Abdominal abscess s/p percutaneous drainage--presumed secondary to diverticular perforation High grade partial SBO-no significant improvement although he continues to take some po and has BM's daily Leukocytosis--decreased today Malnutrition Plan: CT from yesterday reviewed with patient and son. This shows adequate drainage of the abscess as before but persistent proximal marked small bowel dilation consistent with a high grade partial small bowel obstruction. He is taking small amounts of po and having GI function but he is not showing progressive improvement and continues to feel weaker. His pre-albumin remains low. It has been 8 days since the drainage and the infectious process appears to be responding to current care. I'm concerned about his nutritional status and the SBO that is not improving. Plan is to start TPN today through PICC line that has been inserted. After a long discussion with son I recommend that we see how he does the next several days and if there is no significant improvement a laparotomy will be indicated. I will tentatively plan this for Thursday. I discussed this procedure with them including the possibility that this will require a colostomy. Discussed with Dr. Brand
[2017-01-02] MEDS: Lisinopril TAB* 10 MG PO SCH (08:34)
[2017-01-02] MEDS: amLODIPine TAB* 5 MG PO SCH (08:34)
[2017-01-02] MEDS: Sertraline* 100 MG TAB PO SCH (08:35)
[2017-01-02] MEDS: buPROPion SR TAB.SR* 150 MG PO SCH (08:37)
[2017-01-02] MEDS: Sodium Bicarbonate (ANTACID)* 650 MG TAB PO SCH ×4 (08:37→17:09)
--- NOTE | 2017-01-02 08:55 | RAD ---
HISTORY: Right-sided PICC line COMPARISONS: December 24, 2016 VIEWS:1: Single frontal portable view of the chest at 8:40 AM FINDINGS: LINES AND TUBES: A right-sided PICC line is noted with the tip overlying the superior cava at the level of the cavoatrial junction. CARDIOMEDIASTINAL SILHOUETTE: The cardiomediastinal silhouette is normal for portable technique. PLEURA: The costophrenic angles are sharp. No pleural abnormalities are noted. LUNG PARENCHYMA: The lungs are clear. ABDOMEN: The upper abdomen is clear. There is no subphrenic gas. BONES AND SOFT TISSUES: Degenerative changes are noted of the spine. There is postsurgical change to left shoulder. IMPRESSION: LINES AND TUBES ABOVE. NO ACTIVE CARDIOPULMONARY DISEASE.
--- NOTE | 2017-01-02 12:16 | PN ---
Subjective Date of Service: 01/02/17 Interval History: HOSPITALIST PROGRESS NOTE Patient seen and examined at bedside. He offers no new complaints today. Appetite is poor, but he's tolerating regular diet. C/o fatigue and weakness, denies abdominal pain. Family History: Unchanged from Admission Social History: Unchanged from Admission Past Medical History: Unchanged from Admission Objective Active Medications: Amlodipine Besylate (Norvasc Tab*) 10 mg PO DAILY [facility] Last Admin: 01/02/17 08:34 Dose: 10 mg Bupropion HCl (Wellbutrin Sr Tab*) 150 mg PO DAILY [facility] Last Admin: 01/02/17 08:37 Dose: Not Given Calcium Carbonate (Tums*) 500 mg PO Q4H PRN PRN Reason: HEARTBURN Last Admin: 12/30/16 16:59 Dose: 500 mg Heparin Sodium (Porcine) (Heparin Vial(*)) 5,000 units SUBCUT Q8HR [facility] Last Admin: 01/02/17 05:37 Dose: 5,000 units Heparin Sodium (Porcine) (Heparin Flush Picc/Ml/Cvc(*)) 1 - 3 ml FLUSH 0600, 1800 KINSEY PRN Reason: Protocol Potassium Chloride/Dextrose (D5w 1/2 Ns Kcl 20 Meq 1000 Ml*) 1,000 mls @ 80 mls /hr IV PER RATE [facility] Stop: 01/02/17 17:00 Last Admin: 01/02/17 08:28 Dose: 80 mls/hr Piperacillin Sod/Tazobactam (Sod 3.375 gm/ Sodium Chloride) 100 mls @ 25 mls/ hr IVPB Q8H [facility] Last Admin: 01/02/17 08:28 Dose: 25 mls/hr Dextrose 500 ml/ Amino Acids 850 ml/ Sterile Water 150 ml/Fat Emulsion Intravenous 250 ml/ Sodium Chloride 100 meq/Potassium Chloride 50 meq/Potassium Phosphate 15 mmole/Calcium Gluconate 15 meq/Magnesium Sulfate 10 meq/ Multivitamins 10 ml/ Trace Metals 3 ml/ Phytonadione 0.2 mg/ Nutrition ( Parenteral) 1,852.821 mls @ 77.083 mls/hr [facility] 1700 KINSEY Lidocaine (Xylocaine 2% Viscous*) 20 ml SWISH SPIT TID PRN PRN Reason: PAIN Lisinopril (Prinivil Tab*) 10 mg PO DAILY [facility] Last Admin: 01/02/17 08:34 Dose: 10 mg Lorazepam (Ativan Tab(*)) 0.25 mg PO Q8H PRN PRN Reason: ANXIETY Last Admin: 12/29/16 09:27 Dose: 0.25 mg Olanzapine (Zyprexa Tab*) 2.5 mg PO BEDTIME [facility] Last Admin: 01/01/17 20:43 Dose: 2.5 mg Ondansetron HCl (Zofran Inj*) 4 mg IV Q4H PRN PRN Reason: NAUSEA/VOMITING Pantoprazole Sodium (Protonix Iv*) 40 mg IV Q24H [facility] Last Admin: 01/01/17 20:43 Dose: 40 mg Pharmacy Consult (Zosyn Per Pharmacy*) 1 note FOLLOW UP .ZOSYN PER PHARMACY [facility] Sertraline HCl (Zoloft*) 100 mg PO DAILY [facility] Last Admin: 01/02/17 08:35 Dose: 100 mg Sodium Bicarbonate (Sodium Bicarbonate (Antacid)*) 650 mg PO AC [facility] Last Admin: 01/02/17 08:59 Dose: 650 mg Vital Signs 01/02/17 01/02/17 07:15 07:24 Temperature 98.0 F Pulse Rate 79 Respiratory 16 15 Rate Blood Pressure 158/72 (mmHg) O2 Sat by Pulse 95 Oximetry Oxygen Devices in Use Now: None Appearance: Elderly male lying in recliner in NAD. Eyes: No Scleral Icterus Ears/Nose/Mouth/Throat: Mucous Membranes Moist Neck: Trachea Midline Respiratory: Symmetrical Chest Expansion and Respiratory Effort, Clear to Auscultation Cardiovascular: RRR - Normal S1 and S2 Abdominal: - - Mild distention, soft, NT, BS+, RLQ drain with no drainage. Extremities: No Edema Neurological: Alert and Oriented x 3, NL Muscle Strength and Tone Lines/Tubes/Other Access: Clean, Dry and Intact PICC Line Nutrition: Taking PO's Result Diagrams: 01/02/17 06:16 01/01/17 05:55 Assess/Plan/Problems-Billing Assessment: Mr. Clarke is an 81 yo M with h/o HTN, anxiety, depression, diverticulits, who presented to ED [facility] c/o abdominal discomfort, N/V, found to have SBO and intraabdominal abscess. - Patient Problems (1) SBO (small bowel obstruction) Comment: - NG tube removed on 12/26/16 and tolerating regular diet well, despite poor appetite. (2) Abdominal abscess Comment: - Suspect secondary to diverticulitis. - Patient was on Cipro/Flagyl with increasing leukocytosis, so he was switched to Zosyn on 12/29/16. Culture revealed polymicrobial growth, sensitive to Zosyn. - s/p IR placed transcutaneus drain on 12/25/16. - CT abd 12/28/16 shows decompressed abscess and several small microabscesses. - Surgery plans to start TPN and plan for surgery on 01/05/17. (3) Protein-calorie malnutrition, moderate Comment: - Prealbumin is 12. - PICC placed today, will start TPN and continue regular diet as tolerated. (4) Acute renal failure Comment: - due to SBO/diverticulitis, but suspect some degree of CKD. - Continue to monitor. (5) HTN (hypertension) Comment: - Better controlled. - Continue Amlodpine and Lisinopril. (6) Depression Comment: - Continue Wellbutrin and Zoloft. (7) DVT prophylaxis Comment: - SQ heparin. Status and Disposition: Inpatient.
[2017-01-02 13:24] LABS: BUN/Creatinine Ratio 7.4 (8-20); Calcium 8.2 mg/dL (8.6-10.3); EGFR Non-African American 56.7 (>60); Globulin 2.9 g/dL (2-4); Magnesium 1.6 mg/dL (1.9-2.7); Phosphorus 2.7 mg/dL (2.5-5.0); Potassium 3.9 mmol/L (3.5-5.0); Total Bilirubin 0.3 mg/dL (0.2-1.0); Total Protein 5.9 g/dL (6.4-8.9)
[2017-01-02] MEDS ORDERED: TPN* 24 HR with Dextrose 50% Water* 500 ML, Amino Acid Infusion 10%* 850 ML, Sterile Wa... CENTR SCH ×16 (17:00)
[2017-01-02] MEDS: TPN* 24 HR with Dextrose 50% Water* 500 ML, Amino Acid Infusion 10%* 850 ML, Sterile Wa... CENTR SCH ×13 (17:16)
[2017-01-02] MEDS: Pantoprazole IV* 40 MG IV SCH (21:06)
[2017-01-02] MEDS: OLANzapine TAB* 2.5 MG PO SCH (21:07)
[2017-01-03] MEDS: ZOSYN 3.375 GM Q8H per EXTENDED INFUSION IVPB SCH ×6 (00:39→16:32)
[2017-01-03] MEDS: Heparin VIAL(*) 5000 UNITS/ML VIAL (FIVE THOUSAND) SUBCUT SCH ×3 (06:12→21:12)
[2017-01-03] MEDS: Sodium Bicarbonate (ANTACID)* 650 MG TAB PO SCH ×3 (07:22→15:53)
[2017-01-03 07:53] LABS: Albumin 3.1 g/dL (3.2-5.2); BUN/Creatinine Ratio 12.8 (8-20); Calcium 8.5 mg/dL (8.6-10.3); EGFR African American 76.6 (>60); EGFR Non-African American 59.5 (>60); Globulin 2.8 g/dL (2-4); Magnesium 1.8 mg/dL (1.9-2.7); Phosphorus 2.6 mg/dL (2.5-5.0); Potassium 4.1 mmol/L (3.5-5.0); Total Bilirubin 0.3 mg/dL (0.2-1.0); Total Protein 5.9 g/dL (6.4-8.9)
--- NOTE | 2017-01-03 07:55 | PN ---
Progress Note - Progress Note Date of Service: 01/03/17 Note: Afeb, VS noted UO adequate. Keke some po's, but little appetite. No N/V. Feeling weak, not ambulating much. No pain. Very discouraged, getting depressed. Abd: Soft, non-tender, non-distended. On TPN. Tentatively on OR schedule for Thursday for laparotomy. He expresses concerns over being strong enough to tolerate surgery. Will cont TPN and PO's as tolerated. Will need to discuss further with patient and family prior to surgery.
[2017-01-03] MEDS: Sertraline* 100 MG TAB PO SCH (08:35)
[2017-01-03] MEDS: Lisinopril TAB* 10 MG PO SCH (08:35)
[2017-01-03] MEDS: buPROPion SR TAB.SR* 150 MG PO SCH (08:35)
[2017-01-03] MEDS: amLODIPine TAB* 5 MG PO SCH (08:35)
--- NOTE | 2017-01-03 10:44 | PN ---
Subjective Date of Service: 01/03/17 Interval History: HOSPITALIST PROGRESS NOTE Patient seen and examined at bedside. He offers no new complaints today, mood is flat. Family History: Unchanged from Admission Social History: Unchanged from Admission Past Medical History: Unchanged from Admission Objective Active Medications: Amlodipine Besylate (Norvasc Tab*) 10 mg PO DAILY [facility] Last Admin: 01/03/17 08:35 Dose: 10 mg Bupropion HCl (Wellbutrin Sr Tab*) 150 mg PO DAILY [facility] Last Admin: 01/03/17 08:35 Dose: 150 mg Calcium Carbonate (Tums*) 500 mg PO Q4H PRN PRN Reason: HEARTBURN Last Admin: 12/30/16 16:59 Dose: 500 mg Heparin Sodium (Porcine) (Heparin Vial(*)) 5,000 units SUBCUT Q8HR [facility] Last Admin: 01/03/17 06:12 Dose: 5,000 units Heparin Sodium (Porcine) (Heparin Flush Picc/Ml/Cvc(*)) 1 - 3 ml FLUSH 0600, 1800 [facility] PRN Reason: Protocol Last Admin: 01/03/17 06:13 Dose: 1 ml Piperacillin Sod/Tazobactam (Sod 3.375 gm/ Sodium Chloride) 100 mls @ 25 mls/ hr IVPB Q8H [facility] Last Admin: 01/03/17 08:35 Dose: 25 mls/hr Dextrose 500 ml/ Amino Acids 850 ml/ Sterile Water 150 ml/Fat Emulsion Intravenous 250 ml/ Sodium Chloride 100 meq/Potassium Chloride 50 meq/Potassium Phosphate 15 mmole/Calcium Gluconate 15 meq/Magnesium Sulfate 10 meq/ Multivitamins 10 ml/ Trace Metals 3 ml/ Phytonadione 0.2 mg/ Nutrition ( Parenteral) 1,852.821 mls @ 77.083 mls/hr CENTR 1700 [facility] Last Admin: 01/02/17 17:16 Dose: 77.083 mls/hr Lidocaine (Xylocaine 2% Viscous*) 20 ml SWISH SPIT TID PRN PRN Reason: PAIN Lisinopril (Prinivil Tab*) 10 mg PO DAILY [facility] Last Admin: 01/03/17 08:35 Dose: 10 mg Lorazepam (Ativan Tab(*)) 0.25 mg PO Q8H PRN PRN Reason: ANXIETY Last Admin: 12/29/16 09:27 Dose: 0.25 mg Olanzapine (Zyprexa Tab*) 2.5 mg PO BEDTIME [facility] Last Admin: 01/02/17 21:07 Dose: Not Given Ondansetron HCl (Zofran Inj*) 4 mg IV Q4H PRN PRN Reason: NAUSEA/VOMITING Pantoprazole Sodium (Protonix Iv*) 40 mg IV Q24H [facility] Last Admin: 01/02/17 21:06 Dose: Not Given Pharmacy Consult (Zosyn Per Pharmacy*) 1 note FOLLOW UP .ZOSYN PER PHARMACY [facility] Sertraline HCl (Zoloft*) 100 mg PO DAILY [facility] Last Admin: 01/03/17 08:35 Dose: 100 mg Sodium Bicarbonate (Sodium Bicarbonate (Antacid)*) 650 mg PO AC [facility] Last Admin: 01/03/17 10:06 Dose: Not Given Vital Signs 01/03/17 01/03/17 01/03/17 03:15 07:23 08:00 Temperature 98.0 F 98.0 F Pulse Rate 82 85 Respiratory 18 17 17 Rate Blood Pressure 166/72 152/78 (mmHg) O2 Sat by Pulse 94 95 95 Oximetry Oxygen Devices in Use Now: None Appearance: Elderly male lying in bed in [facility]. Eyes: No Scleral Icterus Ears/Nose/Mouth/Throat: Mucous Membranes Moist Neck: Trachea Midline Respiratory: Symmetrical Chest Expansion and Respiratory Effort, Clear to Auscultation Cardiovascular: RRR - Normal S1 and S2 Abdominal: - - Soft, mild distention, NT, NG, NR, BS+, RLQ drain with scant yellow drainage Extremities: No Edema Neurological: Alert and Oriented x 3, NL Muscle Strength and Tone Lines/Tubes/Other Access: Clean, Dry and Intact PICC Line Nutrition: Taking PO's, TPN Result Diagrams: 01/02/17 06:16 01/03/17 07:20 Assess/Plan/Problems-Billing Assessment: Mr. Clarke is an 81 yo M with h/o HTN, anxiety, depression, diverticulits, who presented to ED [facility] c/o abdominal discomfort, N/V, found to have SBO and intraabdominal abscess. - Patient Problems (1) SBO (small bowel obstruction) Comment: - NG tube removed on 12/26/16 and tolerating regular diet well, despite poor appetite. (2) Abdominal abscess Comment: - Suspect secondary to diverticulitis. - Patient was on Cipro/Flagyl with increasing leukocytosis, so he was switched to Zosyn on 12/29/16. Culture revealed polymicrobial growth, sensitive to Zosyn. - s/p IR placed transcutaneus drain on 12/25/16. - CT abd 12/28/16 shows decompressed abscess and several small microabscesses. - Continue TPN and tentative plan for surgery on 01/05/17. (3) Protein-calorie malnutrition, moderate Comment: - Prealbumin is 12. - Continue TPN and regular diet as tolerated. (4) Acute renal failure Comment: - due to SBO/diverticulitis, but suspect some degree of CKD. - Continue to monitor. (5) HTN (hypertension) Comment: - Better controlled. - Continue Amlodpine and Lisinopril. (6) Depression Comment: - Continue Wellbutrin and Zoloft. - Will request MHU evaluation for possible medication optimization. (7) DVT prophylaxis Comment: - SQ heparin. Status and Disposition: Inpatient.
[2017-01-03] MEDS: TPN* 24 HR with Dextrose 50% Water* 500 ML, Amino Acid Infusion 10%* 850 ML, Sterile Wa... CENTR SCH ×13 (16:40)
[2017-01-03] MEDS: Pantoprazole IV* 40 MG IV SCH (21:08)
[2017-01-03] MEDS: OLANzapine TAB* 2.5 MG PO SCH (21:08)
[2017-01-04] MEDS: ZOSYN 3.375 GM Q8H per EXTENDED INFUSION IVPB SCH ×6 (00:10→16:39)
[2017-01-04] MEDS: Heparin VIAL(*) 5000 UNITS/ML VIAL (FIVE THOUSAND) SUBCUT SCH ×3 (05:44→21:25)
[2017-01-04 05:53] LABS: Hematocrit 37 % (42-52); Hemoglobin 12.1 g/dl (14.0-18.0); Mean Corpuscular HGB Conc 33 g/dl (31-36); Mean Corpuscular Hemoglobin 30 pg (27-31); Mean Corpuscular Volume 90 fL (80-94); Mean Platelet Volume 8 um3 (7.4-10.4); Red Cell Distribution Width 16 % (10.5-15); White Blood Count 15.2 10^3/ul (3.5-10.8)
[2017-01-04 05:59] LABS: Add Diff/Slide Review? Slide Review Added; Comments Flag Yes
[2017-01-04 06:12] LABS: Albumin 2.9 g/dL (3.2-5.2); BUN/Creatinine Ratio 19.5 (8-20); Calcium 8.6 mg/dL (8.6-10.3); EGFR African American 72.3 (>60); EGFR Non-African American 56.2 (>60); Globulin 2.7 g/dL (2-4); Magnesium 1.9 mg/dL (1.9-2.7); Phosphorus 3.1 mg/dL (2.5-5.0); Potassium 4.3 mmol/L (3.5-5.0); Total Bilirubin 0.3 mg/dL (0.2-1.0); Total Protein 5.6 g/dL (6.4-8.9)
--- NOTE | 2017-01-04 08:05 | PN ---
Progress Note - Progress Note Date of Service: 01/04/17 Note: Surgery Mr. Clarke says he can't move his legs and that has been going on since yesterday. Per the nurses, he walked to the bathroom yesterday. Mr. Clarke also says he doesn't want any more tests. Per nurses, he sometimes declines his antidepressants. Vital Signs 01/03/17 01/03/17 01/03/17 11:23 15:08 16:00 Temperature 98.1 F 98.6 F Pulse Rate 93 88 Respiratory 17 18 Rate Blood Pressure 148/68 152/69 (mmHg) O2 Sat by Pulse 95 95 95 Oximetry 01/03/17 01/03/17 01/03/17 19:22 20:03 23:56 Temperature 98.0 F 97.7 F Pulse Rate 86 87 Respiratory 16 14 20 Rate Blood Pressure 148/67 147/70 (mmHg) O2 Sat by Pulse 96 96 Oximetry 01/04/17 03:24 Temperature 98.0 F Pulse Rate 74 Respiratory 20 Rate Blood Pressure 138/72 (mmHg) O2 Sat by Pulse 97 Oximetry abd: good BS, soft, tender near pigtail catheter. ext: able to wiggle toes and lift legs a little bit. Intake & Output 01/03/17 01/04/17 01/04/17 22:59 06:59 14:59 Intake Total 2313 137 Output Total 810 715 Balance 1503 -578 Weight 140 lb 12.8 oz Intake: IV Fluids 20 30 NS (0.9%) 20 30 IVPB 110 107 ABX - PIPERACILLIN 110 107 TPN/PPN 1063 Oral 1120 0 Packed Cells 0 Output: Pigtail Drain 10 15 Urine 800 700 Other: Estimated Void Large # Bowel Movements 0 # Voids 1 Laboratory Results - last 24 hr 01/03/17 01/03/17 01/03/17 12:04 16:35 21:21 WBC RBC Hgb Hct MCV MCH MCHC RDW Plt Count MPV Neut % (Auto) Lymph % (Auto) Martin % (Auto) Eos % (Auto) Baso % (Auto) Absolute Neuts (auto) Absolute Lymphs (auto) Absolute Monos (auto) Absolute Eos (auto) Absolute Basos (auto) Absolute Nucleated RBC Nucleated RBC % Sodium Potassium Chloride Carbon Dioxide Anion Gap BUN Creatinine Est GFR ( Amer) Est GFR (Non-Af Amer) BUN/Creatinine Ratio Glucose POC Glucose (mg/dL) 169 H 144 H 80 Calcium Phosphorus Magnesium Total Bilirubin AST ALT Alkaline Phosphatase Total Protein Albumin Globulin Albumin/Globulin Ratio Triglycerides 01/03/17 01/04/17 01/04/17 21:25 01:13 05:35 WBC 15.2 H RBC 4.10 Hgb 12.1 L Hct 37 L MCV 90 MCH 30 MCHC 33 RDW 16 H Plt Count 373 MPV 8 Neut % (Auto) 82.6 Lymph % (Auto) 8.4 L Martin % (Auto) 6.5 Eos % (Auto) 1.6 Baso % (Auto) 0.9 Absolute Neuts (auto) 12.6 H Absolute Lymphs (auto) 1.3 Absolute Monos (auto) 1.0 H Absolute Eos (auto) 0.2 Absolute Basos (auto) 0.1 Absolute Nucleated RBC 0.01 Nucleated RBC % 0 Sodium Potassium Chloride Carbon Dioxide Anion Gap BUN Creatinine Est GFR ( Amer) Est GFR (Non-Af Amer) BUN/Creatinine Ratio Glucose POC Glucose (mg/dL) 150 H 163 H Calcium Phosphorus Magnesium Total Bilirubin AST ALT Alkaline Phosphatase Total Protein Albumin Globulin Albumin/Globulin Ratio Triglycerides 01/04/17 01/04/17 05:35 05:49 WBC RBC Hgb Hct MCV MCH MCHC RDW Plt Count MPV Neut % (Auto) Lymph % (Auto) Martin % (Auto) Eos % (Auto) Baso % (Auto) Absolute Neuts (auto) Absolute Lymphs (auto) Absolute Monos (auto) Absolute Eos (auto) Absolute Basos (auto) Absolute Nucleated RBC Nucleated RBC % Sodium 136 Potassium 4.3 Chloride 107 Carbon Dioxide 24 Anion Gap 5 BUN 24 Creatinine 1.23 H Est GFR ( Amer) 72.3 Est GFR (Non-Af Amer) 56.2 BUN/Creatinine Ratio 19.5 Glucose 151 H POC Glucose (mg/dL) 164 H Calcium 8.6 Phosphorus 3.1 Magnesium 1.9 Total Bilirubin 0.30 AST 15 ALT 17 Alkaline Phosphatase 43 Total Protein 5.6 L Albumin 2.9 L Globulin 2.7 Albumin/Globulin Ratio 1.1 Triglycerides 127 A/P: Increasing WBC may indicate need for OR, however that would go against his expressed wishes for "no more tests". As he agrees that he is depressed, probably we need to clarify the role of depression plays in his choices to decline testing and therapies. Agree with request for mental health evaluation. Monse
[2017-01-04] MEDS: amLODIPine TAB* 5 MG PO SCH (08:30)
[2017-01-04] MEDS: Sodium Bicarbonate (ANTACID)* 650 MG TAB PO SCH ×3 (08:30→15:22)
[2017-01-04] MEDS: buPROPion SR TAB.SR* 150 MG PO SCH (08:31)
[2017-01-04] MEDS: Sertraline* 100 MG TAB PO SCH (08:31)
[2017-01-04] MEDS: Lisinopril TAB* 10 MG PO SCH (08:31)
--- NOTE | 2017-01-04 10:28 | PN ---
Subjective Date of Service: 01/04/17 Interval History: HOSPITALIST PROGRESS NOTE Patient seen and examined at bedside. His depression is much more pronounced today. He states he's weaker, cannot get up from bed or walk, but with encouragement he was able to get up from bed independently and ambulate to the bathroom and around the unit without assistance. He states he cannot have surgery because he doesn't have the energy to go through it. Family History: Unchanged from Admission Social History: Unchanged from Admission Past Medical History: Unchanged from Admission Objective Active Medications: Amlodipine Besylate (Norvasc Tab*) 10 mg PO DAILY [facility] Last Admin: 01/04/17 08:30 Dose: 10 mg Bupropion HCl (Wellbutrin Sr Tab*) 150 mg PO DAILY [facility] Last Admin: 01/04/17 08:31 Dose: 150 mg Calcium Carbonate (Tums*) 500 mg PO Q4H PRN PRN Reason: HEARTBURN Last Admin: 12/30/16 16:59 Dose: 500 mg Heparin Sodium (Porcine) (Heparin Vial(*)) 5,000 units SUBCUT Q8HR [facility] Last Admin: 01/04/17 05:44 Dose: 5,000 units Heparin Sodium (Porcine) (Heparin Flush Picc/Ml/Cvc(*)) 1 - 3 ml FLUSH 0600, 1800 [facility] PRN Reason: Protocol Last Admin: 01/04/17 05:44 Dose: 1 ml Piperacillin Sod/Tazobactam (Sod 3.375 gm/ Sodium Chloride) 100 mls @ 25 mls/ hr IVPB Q8H [facility] Last Admin: 01/04/17 08:26 Dose: 25 mls/hr Dextrose 500 ml/ Amino Acids 850 ml/ Sterile Water 150 ml/Fat Emulsion Intravenous 250 ml/ Sodium Chloride 100 meq/Potassium Chloride 50 meq/Potassium Phosphate 15 mmole/Calcium Gluconate 15 meq/Magnesium Sulfate 10 meq/ Multivitamins 10 ml/ Trace Metals 3 ml/ Phytonadione 0.2 mg/ Nutrition ( Parenteral) 1,852.821 mls @ 77.083 mls/hr [facility] Last Admin: 01/03/17 16:40 Dose: 77.083 mls/hr Lidocaine (Xylocaine 2% Viscous*) 20 ml SWISH SPIT TID PRN PRN Reason: PAIN Lisinopril (Prinivil Tab*) 10 mg PO DAILY [facility] Last Admin: 01/04/17 08:31 Dose: 10 mg Lorazepam (Ativan Tab(*)) 0.25 mg PO Q8H PRN PRN Reason: ANXIETY Last Admin: 12/29/16 09:27 Dose: 0.25 mg Olanzapine (Zyprexa Tab*) 2.5 mg PO BEDTIME [facility] Last Admin: 01/03/17 21:08 Dose: 2.5 mg Ondansetron HCl (Zofran Inj*) 4 mg IV Q4H PRN PRN Reason: NAUSEA/VOMITING Pantoprazole Sodium (Protonix Iv*) 40 mg IV Q24H [facility] Last Admin: 01/03/17 21:08 Dose: 40 mg Pharmacy Consult (Zosyn Per Pharmacy*) 1 note FOLLOW UP .ZOSYN PER PHARMACY [facility] Sertraline HCl (Zoloft*) 100 mg PO DAILY [facility] Last Admin: 01/04/17 08:31 Dose: 100 mg Sodium Bicarbonate (Sodium Bicarbonate (Antacid)*) 650 mg PO AC [facility] Last Admin: 01/04/17 10:00 Dose: Not Given Vital Signs 01/04/17 01/04/17 03:24 07:14 Temperature 98.0 F 97.9 F Pulse Rate 74 86 Respiratory 20 16 Rate Blood Pressure 138/72 155/79 (mmHg) O2 Sat by Pulse 97 95 Oximetry Oxygen Devices in Use Now: None Appearance: Elderly male sitting up in a chair in [facility]. Eyes: No Scleral Icterus Ears/Nose/Mouth/Throat: Mucous Membranes Moist Neck: Trachea Midline Respiratory: Symmetrical Chest Expansion and Respiratory Effort, Clear to Auscultation Cardiovascular: RRR - Normal S1 and S2 Abdominal: - - Mild distention, NT, BS+ Extremities: No Edema Neurological: Alert and Oriented x 3, NL Muscle Strength and Tone Lines/Tubes/Other Access: Clean, Dry and Intact PICC Line Nutrition: Taking PO's, TPN Result Diagrams: 01/04/17 05:35 01/04/17 05:35 Assess/Plan/Problems-Billing Assessment: Mr. Clarke is an 81 yo M with h/o HTN, anxiety, depression, diverticulits, who presented to ED [facility] c/o abdominal discomfort, N/V, found to have SBO and intraabdominal abscess. - Patient Problems (1) SBO (small bowel obstruction) Comment: - NG tube removed on 12/26/16 and tolerating regular diet reasonably well, despite poor appetite. (2) Abdominal abscess Comment: - Suspect secondary to diverticulitis. - Patient was on Cipro/Flagyl with increasing leukocytosis, so he was switched to Zosyn on 12/29/16. Culture revealed polymicrobial growth, sensitive to Zosyn. - s/p IR placed transcutaneus drain on 12/25/16. - CT abd 12/28/16 shows decompressed abscess and several small microabscesses. - Continue TPN and tentative plan for surgery on 01/05/17, but patient states he doesn't feel he can go through surgery. (3) Protein-calorie malnutrition, moderate Comment: - Prealbumin is 12. - Continue TPN and regular diet as tolerated. (4) Acute renal failure Comment: - due to SBO/diverticulitis, but suspect some degree of CKD. - Continue to monitor. (5) HTN (hypertension) Comment: - Better controlled. - Continue Amlodpine and Lisinopril. (6) Depression Comment: - This seems to be his major obstacle at this time, worse today because his son had to return to [place]. - I talked to his son (Marlo [phone]) - he tells me patient's depression has been a chronic issue. Two years ago he had a severe episode requiring admission in [place], and he responded well to ECT at that time. - Continue Wellbutrin, Zoloft, and Olanzapine. - MHU evaluation requested. (7) DVT prophylaxis Comment: - SQ heparin. Status and Disposition: Inpatient.
[2017-01-04] MEDS: TPN* 24 HR with Dextrose 50% Water* 500 ML, Amino Acid Infusion 10%* 850 ML, Sterile Wa... CENTR SCH ×13 (16:39)
[2017-01-04] MEDS: Pantoprazole IV* 40 MG IV SCH (19:53)
[2017-01-04] MEDS: OLANzapine TAB* 2.5 MG PO SCH (21:27)
[2017-01-05] MEDS: ZOSYN 3.375 GM Q8H per EXTENDED INFUSION IVPB SCH ×6 (00:37→16:53)
[2017-01-05] MEDS: Sodium Bicarbonate (ANTACID)* 650 MG TAB PO SCH ×3 (07:44→16:53)
[2017-01-05 08:12] LABS: Hematocrit 38 % (42-52); Hemoglobin 12.5 g/dl (14.0-18.0); Mean Corpuscular HGB Conc 33 g/dl (31-36); Mean Corpuscular Hemoglobin 30 pg (27-31); Mean Corpuscular Volume 91 fL (80-94); Mean Platelet Volume 8 um3 (7.4-10.4); Red Blood Count 4.21 10^6/ul (4.0-5.4); Red Cell Distribution Width 16 % (10.5-15); White Blood Count 16.8 10^3/ul (3.5-10.8)
[2017-01-05 08:21] LABS: Add Diff/Slide Review? Slide Review Added; Comments Flag Yes
[2017-01-05] MEDS: Lisinopril TAB* 10 MG PO SCH (09:05)
[2017-01-05] MEDS: amLODIPine TAB* 5 MG PO SCH (09:05)
[2017-01-05] MEDS: buPROPion SR TAB.SR* 150 MG PO SCH (09:05)
[2017-01-05] MEDS: Sertraline* 100 MG TAB PO SCH (09:05)
--- NOTE | 2017-01-05 09:38 | PN ---
Subjective Date of Service: 01/05/17 Interval History: HOSPITALIST PROGRESS NOTE Patient seen and examined at bedside. Very depressed. Offers no complaints but now refuses to get out of bed. States he's very weak and can't do it, although he was able to when encouraged by RN. Denies pain, does not feel hungry, no BM last night. Family History: Unchanged from Admission Social History: Unchanged from Admission Past Medical History: Unchanged from Admission Objective Active Medications: Amlodipine Besylate (Norvasc Tab*) 10 mg PO DAILY [facility] Last Admin: 01/05/17 09:05 Dose: 10 mg Bupropion HCl (Wellbutrin Sr Tab*) 150 mg PO DAILY [facility] Last Admin: 01/05/17 09:05 Dose: 150 mg Calcium Carbonate (Tums*) 500 mg PO Q4H PRN PRN Reason: HEARTBURN Last Admin: 12/30/16 16:59 Dose: 500 mg Heparin Sodium (Porcine) (Heparin Flush Picc/Ml/Cvc(*)) 1 - 3 ml FLUSH 0600, 1800 [facility] PRN Reason: Protocol Last Admin: 01/05/17 05:22 Dose: 1 ml Piperacillin Sod/Tazobactam (Sod 3.375 gm/ Sodium Chloride) 100 mls @ 25 mls/ hr IVPB Q8H [facility] Last Admin: 01/05/17 08:41 Dose: 25 mls/hr Dextrose 500 ml/ Amino Acids 850 ml/ Sterile Water 150 ml/Fat Emulsion Intravenous 250 ml/ Sodium Chloride 100 meq/Potassium Chloride 50 meq/Potassium Phosphate 15 mmole/Calcium Gluconate 15 meq/Magnesium Sulfate 10 meq/ Multivitamins 10 ml/ Trace Metals 3 ml/ Phytonadione 0.2 mg/ Nutrition ( Parenteral) 1,852.821 mls @ 77.083 mls/hr CENTR 1700 [facility] Last Admin: 01/04/17 16:39 Dose: 77.083 mls/hr Lidocaine (Xylocaine 2% Viscous*) 20 ml SWISH SPIT TID PRN PRN Reason: PAIN Lisinopril (Prinivil Tab*) 10 mg PO DAILY [facility] Last Admin: 01/05/17 09:05 Dose: 10 mg Lorazepam (Ativan Tab(*)) 0.25 mg PO Q8H PRN PRN Reason: ANXIETY Last Admin: 12/29/16 09:27 Dose: 0.25 mg Olanzapine (Zyprexa Tab*) 2.5 mg PO BEDTIME [facility] Last Admin: 01/04/17 21:27 Dose: Not Given Ondansetron HCl (Zofran Inj*) 4 mg IV Q4H PRN PRN Reason: NAUSEA/VOMITING Pantoprazole Sodium (Protonix Iv*) 40 mg IV Q24H [facility] Last Admin: 01/04/17 19:53 Dose: 40 mg Pharmacy Consult (Zosyn Per Pharmacy*) 1 note FOLLOW UP .ZOSYN PER PHARMACY [facility] Sertraline HCl (Zoloft*) 100 mg PO DAILY [facility] Last Admin: 01/05/17 09:05 Dose: 100 mg Sodium Bicarbonate (Sodium Bicarbonate (Antacid)*) 650 mg PO AC [facility] Last Admin: 01/05/17 07:44 Dose: Not Given Vital Signs 01/04/17 01/05/17 01/05/17 23:49 03:42 07:25 Temperature 98.1 F 97.7 F 98.0 F Pulse Rate 92 87 84 Respiratory 14 16 16 Rate Blood Pressure 143/70 148/73 150/73 (mmHg) O2 Sat by Pulse 96 95 96 Oximetry Oxygen Devices in Use Now: None Appearance: Elderly male lying in bed in [place], very flat affect. Eyes: No Scleral Icterus Ears/Nose/Mouth/Throat: Mucous Membranes Moist Neck: Trachea Midline Respiratory: Symmetrical Chest Expansion and Respiratory Effort, Clear to Auscultation Cardiovascular: RRR - Normal S1 and S2 Abdominal: - - Soft, mild distention, NT, NG, BS+, RLQ drain in place with scant yellow drainage in bag Extremities: No Edema Neurological: Alert and Oriented x 3, NL Muscle Strength and Tone Lines/Tubes/Other Access: Clean, Dry and Intact PICC Line Nutrition: Taking PO's, TPN Result Diagrams: 01/05/17 07:55 01/04/17 05:35 Assess/Plan/Problems-Billing Assessment: Mr. Clarke is an 81 yo M with h/o HTN, anxiety, depression, diverticulits, who presented to ED [facility] c/o abdominal discomfort, N/V, found to have SBO and intraabdominal abscess. - Patient Problems (1) SBO (small bowel obstruction) Comment: - NG tube removed on 12/26/16 and tolerating regular diet reasonably well, despite poor appetite. (2) Abdominal abscess Comment: - Suspect secondary to diverticulitis. - Patient was on Cipro/Flagyl with increasing leukocytosis, so he was switched to Zosyn on 12/29/16. Culture revealed polymicrobial growth, sensitive to Zosyn. - s/p IR placed transcutaneus drain on 12/25/16. - CT abd 12/28/16 shows decompressed abscess and several small microabscesses. - Continue TPN and tentative plan for surgery on 01/05/17, but patient states he doesn't feel he can go through surgery. (3) Protein-calorie malnutrition, moderate Comment: - Prealbumin is 12 - will recheck later this week. - Continue TPN and regular diet as tolerated. (4) Acute renal failure Comment: - due to SBO/diverticulitis, but suspect some degree of CKD. - Continue to monitor. (5) HTN (hypertension) Comment: - Controlled. - Continue Amlodpine and Lisinopril. (6) Depression Comment: - This seems to be his major obstacle at this time, worse today because his son had to return to [place]. - I talked to his son (Marlo [phone]) - he tells me patient's depression has been a chronic issue. Two years ago he had a severe episode requiring admission in [place], and he responded well to ECT at that time. - Continue Wellbutrin, Zoloft, and Olanzapine. - MHU evaluation requested. (7) DVT prophylaxis Comment: - SQ heparin. Status and Disposition: Inpatient.
--- NOTE | 2017-01-05 10:37 | PN ---
Progress Note - Progress Note Date of Service: 01/05/17 SOAP: Subjective: No energy today Has a poor appetite but no nausea or vomiting. No abdominal pain He says he cannot get out of bed but he ambulated in the halls today BM yesterday Objective: Temp Pulse Resp BP Pulse Ox 98.0 F 84 18 150/73 96 01/05/17 07:25 01/05/17 07:25 01/05/17 08:00 01/05/17 07:25 01/05/17 08:00 Intake & Output 01/03/17 01/04/17 01/05/17 01/06/17 06:59 06:59 06:59 06:59 Intake Total 2767.0 2920 3500 Output Total 1595 2485 1090 Balance 1172.0 435 2410 Weight 140 lb 12.8 oz Intake: IV Fluids 1032.0 70 15 ABX - PIPERACILLIN 185.8 D5W 1/2 NS 20 meq KCL 748 NS (0.9%) 98.2 70 15 IVPB 134 327 320 ABX - PIPERACILLIN 134 327 320 TPN/PPN 711 1063 2775 Oral 880 1460 390 Packed Cells 0 Pigtail Drain 10 Output: Pigtail Drain 45 35 40 Urine 1550 2450 1050 Other: Estimated Void Large Large Large Medium Date of Last Bowel 01/04/17 Movement # Bowel Movements 1 0 1 Estimated Stool Amount Medium Medium # Voids 1 PEX: Abd is soft and slightly distended. Bowel sounds are present but are hypoactive. There is no tenderness or guarding. Drain is in place with small amount of output. Laboratory Last Values WBC 16.8 10^3/ul (3.5-10.8) H 01/05/17 07:55 RBC 4.21 10^6/ul (4.0-5.4) 01/05/17 07:55 Hgb 12.5 g/dl (14.0-18.0) L 01/05/17 07:55 Hct 38 % (42-52) L 01/05/17 07:55 MCV 91 fL (80-94) 01/05/17 07:55 MCH 30 pg (27-31) 01/05/17 07:55 MCHC 33 g/dl (31-36) 01/05/17 07:55 RDW 16 % (10.5-15) H 01/05/17 07:55 Plt Count 408 10^3/ul (150-450) 01/05/17 07:55 MPV 8 um3 (7.4-10.4) 01/05/17 07:55 Immature Gran % (Auto) 2 % (0-9) 01/02/17 06:16 Neut % (Auto) 83.9 % (38-83) H 01/05/17 07:55 Lymph % (Auto) 7.6 % (25-47) L 01/05/17 07:55 [place] % (Auto) 6.0 % (1-9) 01/05/17 07:55 Eos % (Auto) 1.9 % (0-6) 01/05/17 07:55 Baso % (Auto) 0.6 % (0-2) 01/05/17 07:55 Absolute Neuts (auto) 14.1 10^3/ul (1.5-7.7) H 01/05/17 07:55 Absolute Lymphs (auto) 1.3 10^3/ul (1.0-4.8) 01/05/17 07:55 Absolute Monos (auto) 1.0 10^3/ul (0-0.8) H 01/05/17 07:55 Absolute Eos (auto) 0.3 10^3/ul (0-0.6) 01/05/17 07:55 Absolute Basos (auto) 0.1 10^3/ul (0-0.2) 01/05/17 07:55 Absolute Nucleated RBC 0 10^3/ul 01/05/17 07:55 Neutrophils % 83 % (38-83) 01/02/17 06:16 Band Neutrophils % 1 % (0-8) 12/31/16 06:34 Lymphocytes % 9 % (25-47) L 01/02/17 06:16 Reactive Lymphs % 1 % (0-6) 12/29/16 06:42 Monocytes % 6 % (0-13) 01/02/17 06:16 Eosinophils % 1 % (0-6) 12/31/16 06:34 Basophils % 1 % (0-2) 12/31/16 06:34 Metamyelocytes % 2 % (0-2) 12/30/16 10:52 Myelocytes % 2 % (0-1) H 01/02/17 06:16 Nucleated RBC % 0 01/05/17 07:55 Normal RBC Morphology Normal (Normal) 01/02/17 06:16 INR (Anticoag Therapy) 1.06 (0.89-1.11) 12/24/16 19:07 APTT 26.7 seconds (26.0-36.3) 12/24/16 19:07 Sodium 136 mmol/L (133-145) 01/04/17 05:35 Potassium 4.3 mmol/L (3.5-5.0) 01/04/17 05:35 Chloride 107 mmol/L (101-111) 01/04/17 05:35 Carbon Dioxide 24 mmol/L (22-32) 01/04/17 05:35 Anion Gap 5 mmol/L (2-11) 01/04/17 05:35 BUN 24 mg/dL (6-24) 01/04/17 05:35 Creatinine 1.23 mg/dL (0.67-1.17) H 01/04/17 05:35 Est GFR ( Amer) 72.3 (>60) 01/04/17 05:35 Est GFR (Non-Af Amer) 56.2 (>60) 01/04/17 05:35 BUN/Creatinine Ratio 19.5 (8-20) 01/04/17 05:35 Glucose 151 mg/dL (70-100) H 01/04/17 05:35 POC Glucose (mg/dL) 173 mg/dL (74-106) H 01/05/17 08:46 Calcium 8.6 mg/dL (8.6-10.3) 01/04/17 05:35 Phosphorus 3.1 mg/dL (2.5-5.0) 01/04/17 05:35 Magnesium 1.9 mg/dL (1.9-2.7) 01/04/17 05:35 Total Bilirubin 0.30 mg/dL (0.2-1.0) 01/04/17 05:35 Direct Bilirubin 0.00 mg/dL (0.03-0.18) L 01/01/17 05:55 Indirect Bilirubin [employer] 01/01/17 05:55 AST 15 U/L (13-39) 01/04/17 05:35 ALT 17 U/L (7-52) 01/04/17 05:35 Alkaline Phosphatase 43 U/L (34-104) 01/04/17 05:35 Total Protein 5.6 g/dL (6.4-8.9) L 01/04/17 05:35 Albumin 2.9 g/dL (3.2-5.2) L 01/04/17 05:35 Globulin 2.7 g/dL (2-4) 01/04/17 05:35 Albumin/Globulin Ratio 1.1 (1-3) 01/04/17 05:35 Prealbumin 19 mg/dL (18-38) 01/02/17 12:55 Triglycerides 127 mg/dL 01/04/17 05:35 Cholesterol 185 mg/dL 01/02/17 12:55 Ur Random Creatinine 122.01 mg/dL 12/25/16 03:00 Ur Random Sodium 44 mmol/L 12/25/16 03:00 Assessment: Abdominal abscess s/p drainage--presumed diverticular perforation. SBO-appears improved Leukocytosis--WBC up slightly today Depression--blunted affect, refusing care and does not want surgery. Plan: Tentative plan was for laparotomy today as he was not showing expected improvement but he has become progressively more depressed and is resisting routine care and has stated that he does not want surgery at all. There are no signs of sepsis or peritonitis so we will hold off on OR today and obtain Psychiatry consult to assess his mental status/insight before deciding on surgery. Will start po again and continue TPN All discussed with joel Ivory at the bedside (cell [phone]). Discussed with Dr. Brand.
[2017-01-05] MEDS: Heparin VIAL(*) 5000 UNITS/ML VIAL (FIVE THOUSAND) SUBCUT SCH ×2 (14:12→21:26)
[2017-01-05] MEDS: TPN* 24 HR with Dextrose 50% Water* 500 ML, Amino Acid Infusion 10%* 850 ML, Sterile Wa... CENTR SCH ×13 (16:53)
--- NOTE | 2017-01-05 17:10 | PN ---
Progress Note - Progress Note Date of Service: 01/05/17 SOAP: Subjective: Patient was seen by Dr. Granados from Psychiatry this afternoon. He does not feel he has the capacity to make his own decisions in his present depressive state and he feels that he would benefit from electroshock therapy as he has had in the past. This would require transfer to the [facility] facility where he could continue to take IV antibiotics and receive some surgical and medical care. The family agrees and is comfortable with this and I feel that with his present mental state he would not do well with surgery unless this was absolutely indicated. He tolerated some lunch and has no N/V and has no abdominal pain. The patient's two sons are his health care proxies and can make medical decisions for him should this be necessary. Plan: Continue IV antibiotics Will remove drain tomorrow Await arrangements with Psych for possible transfer All discussed with patient's son at the bedside.
[2017-01-05] MEDS: OLANzapine TAB* 2.5 MG PO SCH (20:05)
[2017-01-05] MEDS: Pantoprazole IV* 40 MG IV SCH (20:05)
--- NOTE | 2017-01-05 22:54 | CONS ---
PSYCHIATRIC CONSULTATION REPORT: DATE OF CONSULT: 01/05/17 ATTENDING PHYSICIAN: Lora Smith MD. CONSULTING PHYSICIAN: Ramirez Granados MD. REASON FOR CONSULTATION: Depressed mood. HISTORY OF PRESENT ILLNESS: The patient is an 81-year-old white male with a history of major depression as well as diverticulitis, who was admitted to the medical service on 12/24/16 secondary to abdominal pain and vomiting, who is currently staying in the surgical stay unit due to an abdominal abscess and acute diverticulitis. My understanding is that the patient has been evaluated by the surgery consult team and it is felt that he would benefit from exploratory laparotomy. Unfortunately, the patient is extremely depressed and is refusing surgery. He is extremely pessimistic about his ability to sustain a surgical intervention or participate in any recovery program. I have been asked to evaluate him to render an opinion as to his capacity to make medical decisions and to make recommendations regarding the treatment of his depression. When I meet with the patient, I am greeted by his son, Cachorro, who is visiting from [place]. Geronimo is lying supine in bed and makes very little spontaneous effort to interact with me. My understanding is that he had a similar episode of depression 2 years ago in [place], [place], when he received a course of ECT, which was extremely helpful and the patient had a full recovery. I asked the patient about his current situation and he indicates to me that he does not think that he could handle a surgical procedure and that he is requesting end-of-life care, feeling that he does not have much longer to live. In speaking with not only his son, but also his medical and surgical providers, this opinion is not shared by anyone other than Mr. Clarke. Symptomatically, he endorses all hallmark symptoms of major depression including poor sleep, anhedonia, guilt, limited energy, concentration deficits, appetite disturbance, psychomotor retardation, and pessimistic thoughts of dying. He does deny formal suicidal ideations, however. The patient denies any psychotic illness or any history of luz elena. PAST PSYCHIATRIC HISTORY: Involves a longstanding history of anxiety and depression, most recently he has been receiving medical treatment with Zoloft 100 mg daily, Wellbutrin 150 mg daily, and Zyprexa 2.5 mg at nighttime. He did have an event 2-1/2 years ago where he received ECT in [place], [place], which was apparently very effective. There is no known history of suicide attempt. PAST MEDICAL HISTORY: Significant for hypertension, diverticulitis, and prostate cancer. PAST SURGICAL HISTORY: Significant for an appendectomy as well as back surgery. ALLERGIES: He has no known drug allergies. CURRENT MEDICATIONS: Include: 1. Calcium carbonate 500 mg as needed for upset stomach. 2. Heparin 5000 units subcutaneously daily. 3. Lorazepam 0.25 mg every 8 hours as needed for anxiety. 4. Lidocaine 2% Viscous solution 20 mL, swish and spit for sore throat. 5. Lisinopril 10 mg daily. 6. Olanzapine 2.5 mg p.o. q.h.s. 7. Zofran 4 mg IV every 4 hours as a p.r.n. for nausea. 8. Pantoprazole 40 mg IV every 24 hours. 9. Piperacillin 3.375 g daily. 10. Zoloft 100 mg p.o. daily. 11. Sodium bicarb 650 mg p.o. with every meal. 12. Dextrose 5% IV once daily. 13. Zosyn per pharmacy recommendations. 14. Amlodipine 10 mg p.o. daily. 15. Bupropion SR 150 mg p.o. daily. FAMILY HISTORY: Noncontributory. SOCIAL HISTORY: The patient was born and raised in [place]. He has a Bachelor's degree from [employer] Thereafter, he joined the [employer] and had a full 25-year career. 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 The patient was for close to 45 years, but his 6 years ago. He does have 3 sons, one who lives in [place], one who lives in [place], and one who lives in [place]. The patient splits his time between his winter home in [place], [place], and his summer home in [place], [place]. He arrived in this area because he typically spends every November in [place], [place], fishing on [address]. He has no significant history of substance abuse. MENTAL STATUS EXAMINATION: The patient is an aging white male, dressed in hospital gown, who is somewhat dishevelled, lying supine in his bed, with limited eye contact. His speech is soft and muffled, with no spontaneity. He is depressed, with a constricted affect. Thought process is linear and goal directed. Thought content shows some paucity of thoughts. He is highly pessimistic about his medical condition with thoughts of , although he denies suicidality. He believes that his life is imminently going to end. He denies homicidal thoughts. The patient denies auditory or visual hallucinations. Insight and judgment are markedly impaired given his psychiatric disturbances and his declining of surgical intervention. Cognitively, he is awake, but very fatigued and lethargic. DIAGNOSES: [place] I: Major depressive disorder, recurrent, severe, without psychotic features. [place] II: Deferred. ASSESSMENT: The patient is an 81-year-old white male with a history of major depressive disorder, who is currently admitted to the surgical stay unit, receiving treatment for an abdominal abscess in the setting of acute diverticulitis, who is refusing recommended surgical exploration and care and also presenting with severe depressive illness. I do not believe that this patient has capacity to make informed medical decisions and I believe that he would benefit highly from a further round of acute electroconvulsive therapy. I have spoken with both of his sons, Marlo and Cachorro, and they are in agreement with this. I have also spoken with Dr. Smith and surgical endoscopist, Dr. Vazquez Araya, who concur with this clinician's findings. PLAN: This clinician will check into various referral sources for inpatient ECT. I am recommending that he be transferred to a facility that provides ECT where as [facility] does not. For now, we will keep his antidepressive medications unchanged and Psychiatry will routinely round on this patient until some resolution can be made about the next steps. We will try to coordinate with both the surgical and hospitalist teams to provide excellent care. [id number]/[facility] #: [id number] PRISCILLA
[2017-01-06] MEDS: ZOSYN 3.375 GM Q8H per EXTENDED INFUSION IVPB SCH ×6 (00:25→16:30)
[2017-01-06] MEDS: Heparin VIAL(*) 5000 UNITS/ML VIAL (FIVE THOUSAND) SUBCUT SCH ×3 (05:49→22:05)
[2017-01-06 06:33] LABS: Hematocrit 38 % (42-52); Hemoglobin 12.3 g/dl (14.0-18.0); Mean Corpuscular HGB Conc 33 g/dl (31-36); Mean Corpuscular Hemoglobin 32 pg (27-31); Mean Corpuscular Volume 98 fL (80-94); Mean Platelet Volume 8 um3 (7.4-10.4); Red Blood Count 3.85 10^6/ul (4.0-5.4); Red Cell Distribution Width 17 % (10.5-15); White Blood Count 14.6 10^3/ul (3.5-10.8)
[2017-01-06 06:34] LABS: Add Diff/Slide Review? Slide Review Added; Comments Flag Yes
--- NOTE | 2017-01-06 07:18 | PN ---
Progress Note - Progress Note Date of Service: 01/06/17 SOAP: Subjective: This is a 81-year old gentleman POD#12 s/p CT guided drainage of abdominal abscess and pigtail drain placement possibly secondary to diverticular disease. - Patient reports loose BMs unchanged from last week, no appetite and no energy. - Patient says he did not eat any solid food yesterday because of no appetite - Reports not being able to ambulate because of weakness. - Denies chest pain, SOB, N/V, abdominal pain and bloating. - Cannot recall if passing flatus. Objective: - WDWN male in NAD, afebrile - Heart RRR, lungs clear to auscultation bilaterally - Abdomen softly distended, NT, bowel sounds present, no guarding - Dressing CDI, minimal thin tin drainage in the bag Intake & Output 01/05/17 01/06/17 01/06/17 22:59 06:59 14:59 Intake Total 1421 1133.3 Output Total 30 540 Balance 1391 593.3 Weight 141 lb 1.6 oz Intake: IV Fluids 130 134.3 ABX - PIPERACILLIN 100 105 NS (0.9%) 30 29.3 TPN/PPN 821 999 Oral 470 0 Output: Pigtail Drain 30 15 Urine 525 Other: Estimated Void Large Medium Date of Last Bowel 01/06/17 Movement # Bowel Movements 1 Estimated Stool Amount Small # Voids 1 Assessment: - SBO: slightly improved from BMs - Leukocytosis - Depression: poor appetite, poor sleep quality Plan: - Continue IV Zosyn - Possible transfer with Psych - drain removal 01/[address] Araya - Encourage PO intake and ambulation as tolerated.
[2017-01-06 07:56] LABS: Albumin 3.2 g/dL (3.2-5.2); Calcium 8.8 mg/dL (8.6-10.3); EGFR African American 67.2 (>60); EGFR Non-African American 52.3 (>60); Globulin 2.9 g/dL (2-4); Phosphorus 2.8 mg/dL (2.5-5.0); Potassium 4.7 mmol/L (3.5-5.0); Total Bilirubin 0.3 mg/dL (0.2-1.0); Total Protein 6.1 g/dL (6.4-8.9)
[2017-01-06] MEDS: amLODIPine TAB* 5 MG PO SCH (08:35)
[2017-01-06] MEDS: Sodium Bicarbonate (ANTACID)* 650 MG TAB PO SCH ×3 (08:35→16:44)
[2017-01-06] MEDS: buPROPion SR TAB.SR* 150 MG PO SCH (08:35)
[2017-01-06] MEDS: Lisinopril TAB* 10 MG PO SCH (08:36)
[2017-01-06] MEDS: Sertraline* 100 MG TAB PO SCH (08:36)
--- NOTE | 2017-01-06 11:00 | PN ---
Subjective Date of Service: 01/06/17 Interval History: Patient markedly depressed. Not complaining of abdominal pain but chronic tingling in his feet. When I recommended Gabapentin he declined any treatment. Family History: Unchanged from Admission Social History: Unchanged from Admission Past Medical History: Unchanged from Admission Objective Active Medications: Amlodipine Besylate (Norvasc Tab*) 10 mg PO DAILY [facility] Last Admin: 01/06/17 08:35 Dose: Not Given Bupropion HCl (Wellbutrin Sr Tab*) 150 mg PO DAILY [facility] Last Admin: 01/06/17 08:35 Dose: Not Given Calcium Carbonate (Tums*) 500 mg PO Q4H PRN PRN Reason: HEARTBURN Last Admin: 12/30/16 16:59 Dose: 500 mg Heparin Sodium (Porcine) (Heparin Flush Picc/Ml/Cvc(*)) 1 - 3 ml FLUSH 0600, 1800 [facility] PRN Reason: Protocol Last Admin: 01/06/17 07:22 Dose: 1 ml Heparin Sodium (Porcine) (Heparin Vial(*)) 5,000 units SUBCUT Q8HR [facility] Last Admin: 01/06/17 05:49 Dose: 5,000 units Piperacillin Sod/Tazobactam (Sod 3.375 gm/ Sodium Chloride) 100 mls @ 25 mls/ hr IVPB Q8H [facility] Last Admin: 01/06/17 08:17 Dose: 25 mls/hr Dextrose 500 ml/ Amino Acids 850 ml/ Sterile Water 150 ml/Fat Emulsion Intravenous 250 ml/ Sodium Chloride 100 meq/Potassium Chloride 50 meq/Potassium Phosphate 15 mmole/Calcium Gluconate 15 meq/Magnesium Sulfate 10 meq/ Multivitamins 10 ml/ Trace Metals 3 ml/ Phytonadione 0.2 mg/ Nutrition ( Parenteral) 1,852.821 mls @ 77.083 mls/hr CENTR 1700 [facility] Last Admin: 01/05/17 16:53 Dose: 77.083 mls/hr Lidocaine (Xylocaine 2% Viscous*) 20 ml SWISH SPIT TID PRN PRN Reason: PAIN Lisinopril (Prinivil Tab*) 10 mg PO DAILY [facility] Last Admin: 01/06/17 08:36 Dose: Not Given Lorazepam (Ativan Tab(*)) 0.25 mg PO Q8H PRN PRN Reason: ANXIETY Last Admin: 12/29/16 09:27 Dose: 0.25 mg Olanzapine (Zyprexa Tab*) 2.5 mg PO BEDTIME [facility] Last Admin: 01/05/17 20:05 Dose: Not Given Ondansetron HCl (Zofran Inj*) 4 mg IV Q4H PRN PRN Reason: NAUSEA/VOMITING Pantoprazole Sodium (Protonix Iv*) 40 mg IV Q24H [facility] Last Admin: 01/05/17 20:05 Dose: 40 mg Pharmacy Consult (Zosyn Per Pharmacy*) 1 note FOLLOW UP .ZOSYN PER PHARMACY [facility] Sertraline HCl (Zoloft*) 100 mg PO DAILY [facility] Last Admin: 01/06/17 08:36 Dose: Not Given Sodium Bicarbonate (Sodium Bicarbonate (Antacid)*) 650 mg PO AC [facility] Last Admin: 01/06/17 08:35 Dose: Not Given Vital Signs 01/05/17 01/05/17 01/05/17 11:24 16:13 19:26 Temperature 98.0 F 98.8 F 98.2 F Pulse Rate 90 92 88 Respiratory 16 15 20 Rate Blood Pressure 142/69 138/65 126/62 (mmHg) O2 Sat by Pulse 94 95 94 Oximetry 01/05/17 01/05/17 01/06/17 20:16 23:48 03:43 Temperature 98.8 F 98.0 F Pulse Rate 88 84 Respiratory 16 16 22 Rate Blood Pressure 146/70 148/64 (mmHg) O2 Sat by Pulse 94 95 Oximetry 01/06/17 01/06/17 07:35 08:00 Temperature 98.3 F Pulse Rate 89 Respiratory 16 16 Rate Blood Pressure 145/72 (mmHg) O2 Sat by Pulse 95 Oximetry Oxygen Devices in Use Now: None Eyes: No Scleral Icterus Ears/Nose/Mouth/Throat: Mucous Membranes Moist Neck: NL Appearance and Movements; NL JVP, No Thyroid Enlargement, Masses Respiratory: Clear to Auscultation Cardiovascular: - - S1 S2 sunny Abdominal: NL Sounds; No Tenderness; No Distention, No Hepatosplenomegaly Lymphatic: No Cervical Adenopathy Extremities: No Clubbing, Cyanosis Skin: No Rash or Ulcers Neurological: Alert and Oriented x 3 Result Diagrams: 01/06/17 05:57 01/06/17 07:31 Microbiology and Other Data: Microbiology 12/24/16 17:50 Stool Occult Blood (YUE) - Final Stool Assess/Plan/Problems-Billing Assessment: Mr. Clarke is an 81 yo M with h/o HTN, anxiety, depression, diverticulits, who presented to ED [facility] c/o abdominal discomfort, N/V, found to have SBO and intraabdominal abscess. - Patient Problems (1) SBO (small bowel obstruction) Current Visit: Yes Status: Acute Code(s): K56.69 - OTHER INTESTINAL OBSTRUCTION SNOMED Code(s): 748548209 Comment: Patient does not appear to have this at this time. Appears resolved. (2) Abdominal abscess Current Visit: Yes Status: Acute Code(s): K65.1 - PERITONEAL ABSCESS SNOMED Code(s): 55403692 Comment: Likely due to diverticulitis. Appears to be improving with Zosyn. Doing better after IR placed transcutaneus drain on 12/25/16. CT 12/28/16 shows decompressed abscess and several small microabscesses. On TPN now mostly because refuses to eat, and patient declines surgery (3) Acute renal failure Current Visit: Yes Status: Acute Comment: Stable. Monitor (4) Depression Current Visit: Yes Status: Acute Code(s): F32.9 - MAJOR DEPRESSIVE DISORDER , SINGLE EPISODE, UNSPECIFIED SNOMED Code(s): 79001638 Comment: - This seems to be his major issue. - I talked to the son this AM and this is a chronic issue and needed ECT a few years ago which worked well. Psych saw thang and agreed. Son prefers [place] because family and support there. Continue Wellbutrin, Zoloft, and Olanzapine. (5) HTN (hypertension) Current Visit: Yes Status: Acute Code(s): I10 - ESSENTIAL (PRIMARY) HYPERTENSION SNOMED Code(s): 52684059 Comment: Borderline control. Continue Amlodpine and Lisinopril for now and adjust accordingly. (6) Protein-calorie malnutrition, moderate Current Visit: Yes Status: Acute Code(s): E44.0 - MODERATE PROTEIN-CALORIE MALNUTRITION SNOMED Code(s): 179267753 Comment: Prealbumin is 12 - will recheck later this week. Continue TPN and regular diet as tolerated.Encourage po intake. (7) DVT prophylaxis Current Visit: Yes Status: Acute Code(s): CJW5893 - SNOMED Code(s): 750743984 Comment: - SQ heparin. Status and Disposition: Inpatient.
--- NOTE | 2017-01-06 12:19 | CONSULT ---
Identification - Patient Identification Reason for Psychiatric Consultation: Incapacitating Symptoms -: Patient is a 81 year old, M admitted on 12/24/16. - MHU Identification Employment Status: Disabled Hx Psychiatric Hospitalization: Yes History - Objective HPI: Geronimo is seen with his son Cachorro. He remains depressed, refusing both meals and oral medications. I broach the topic of ECT, perhaps at [facility] , to which he replies "Oh no. I couldn't make it that far. I can't walk." He is reassured that we would send a stretcher and an ambulance. I did speak with Dr. Ania Luis, ECT provider at [facility], who agreed to review the case. Attempts to refer to an inpatient ECT program in [place], [place], where the patient typically resides in the summer, resulted in declination from [facility] due to not accepting outside hospital transfers and no return phone call from [facility]. I spoke with curt Ivory in person and Jose by phone ) who are supportive of plan to transfer to [facility]. Lab Results: Laboratory Tests 12/24/16 12/24/16 12/24/16 19:07 19:07 19:07 WBC 13.5 H RBC 3.95 L Hgb 11.7 L Hct 36 L MCV 91 MCH 30 MCHC 33 RDW 15 Plt Count 263 MPV 8 Immature Gran % (Auto) 24 H Neut % (Auto) 83.4 H Lymph % (Auto) 7.0 L [place] % (Auto) 8.7 Eos % (Auto) 0.6 Baso % (Auto) 0.3 Absolute Neuts (auto) 11.3 H Absolute Lymphs (auto) 0.9 L Absolute Monos (auto) 1.2 H Absolute Eos (auto) 0.1 Absolute Basos (auto) 0 Absolute Nucleated RBC 0 Neutrophils % 63 Band Neutrophils % 21 H Lymphocytes % 10 L Reactive Lymphs % Monocytes % 3 Eosinophils % Basophils % Metamyelocytes % Myelocytes % 3 H Nucleated RBC % 0 Normal RBC Morphology Normal INR (Anticoag Therapy) 1.06 APTT 26.7 Sodium 140 Potassium 3.5 Chloride 110 Carbon Dioxide 21 L Anion Gap 9 BUN 58 H Creatinine 1.45 H Est GFR ( Amer) 59.8 Est GFR (Non-Af Amer) 46.5 BUN/Creatinine Ratio 40.0 H Glucose 87 POC Glucose (mg/dL) Calcium 8.3 L Phosphorus Magnesium Total Bilirubin 0.40 Direct Bilirubin Indirect Bilirubin AST 15 ALT 12 Alkaline Phosphatase 62 Total Protein 5.8 L Albumin 2.9 L Globulin 2.9 Albumin/Globulin Ratio 1.0 Prealbumin Triglycerides Cholesterol Ur Random Creatinine Ur Random Sodium 12/25/16 12/25/16 12/25/16 03:00 07:23 07:23 WBC 13.4 H RBC 3.98 L Hgb 12.0 L Hct 36 L MCV 90 MCH 30 MCHC 33 RDW 15 Plt Count 254 MPV 8 Immature Gran % (Auto) Neut % (Auto) 82.8 Lymph % (Auto) 6.9 L [place] % (Auto) 8.9 Eos % (Auto) 1.2 Baso % (Auto) 0.2 Absolute Neuts (auto) 11.1 H Absolute Lymphs (auto) 0.9 L Absolute Monos (auto) 1.2 H Absolute Eos (auto) 0.2 Absolute Basos (auto) 0 Absolute Nucleated RBC 0 Neutrophils % Band Neutrophils % Lymphocytes % Reactive Lymphs % Monocytes % Eosinophils % Basophils % Metamyelocytes % Myelocytes % Nucleated RBC % 0 Normal RBC Morphology INR (Anticoag Therapy) APTT Sodium 141 Potassium 3.6 Chloride 112 H Carbon Dioxide 21 L Anion Gap 8 BUN 52 H Creatinine 1.45 H Est GFR ( Amer) 59.8 Est GFR (Non-Af Amer) 46.5 BUN/Creatinine Ratio 35.9 H Glucose 96 POC Glucose (mg/dL) Calcium 8.1 L Phosphorus Magnesium Total Bilirubin Direct Bilirubin Indirect Bilirubin AST ALT Alkaline Phosphatase Total Protein Albumin Globulin Albumin/Globulin Ratio Prealbumin Triglycerides Cholesterol Ur Random Creatinine 122.01 Ur Random Sodium 44 12/26/16 12/26/16 12/27/16 08:26 08:28 06:41 WBC 16.7 H RBC 4.45 Hgb 13.3 L Hct 41 L MCV 91 MCH 30 MCHC 33 RDW 15 Plt Count 287 MPV 8 Immature Gran % (Auto) 9 Neut % (Auto) 84.4 H Lymph % (Auto) 8.1 L [place] % (Auto) 5.4 Eos % (Auto) 1.9 Baso % (Auto) 0.2 Absolute Neuts (auto) 14.1 H Absolute Lymphs (auto) 1.3 Absolute Monos (auto) 0.9 H Absolute Eos (auto) 0.3 Absolute Basos (auto) 0 Absolute Nucleated RBC 0.01 Neutrophils % 76 Band Neutrophils % 4 Lymphocytes % 8 L Reactive Lymphs % Monocytes % 6 Eosinophils % 1 Basophils % Metamyelocytes % Myelocytes % 5 H Nucleated RBC % 0 Normal RBC Morphology Normal INR (Anticoag Therapy) APTT Sodium 139 139 Potassium 3.8 3.9 Chloride 113 H 112 H Carbon Dioxide 19 L 21 L Anion Gap 7 6 BUN 46 H 33 H Creatinine 1.44 H 1.30 H Est GFR ( Amer) 60.3 67.8 Est GFR (Non-Af Amer) 46.9 52.7 BUN/Creatinine Ratio 31.9 H 25.4 H Glucose 96 173 H POC Glucose (mg/dL) Calcium 8.5 L 8.0 L Phosphorus 2.4 L Magnesium 1.7 L Total Bilirubin 0.50 Direct Bilirubin Indirect Bilirubin AST 14 ALT 11 Alkaline Phosphatase 73 Total Protein 6.0 L Albumin 3.0 L Globulin 3.0 Albumin/Globulin Ratio 1.0 Prealbumin Triglycerides Cholesterol Ur Random Creatinine Ur Random Sodium 12/27/16 12/28/16 12/28/16 06:42 08:49 08:49 WBC 14.5 H 16.2 H RBC 4.18 4.29 Hgb 12.3 L 12.8 L Hct 38 L 38 L MCV 91 90 MCH 30 30 MCHC 33 33 RDW 16 H 15 Plt Count 279 284 MPV 8 8 Immature Gran % (Auto) 8 5 Neut % (Auto) 84.1 H 88.1 H Lymph % (Auto) 7.4 L 6.3 L [place] % (Auto) 5.4 3.7 Eos % (Auto) 1.7 1.5 Baso % (Auto) 1.4 0.4 Absolute Neuts (auto) 12.2 H 14.2 H Absolute Lymphs (auto) 1.1 1.0 Absolute Monos (auto) 0.8 0.6 Absolute Eos (auto) 0.2 0.2 Absolute Basos (auto) 0.2 0.1 Absolute Nucleated RBC 0.01 0 Neutrophils % 75 84 H Band Neutrophils % 4 2 Lymphocytes % 11 L 4 L Reactive Lymphs % Monocytes % 5 5 Eosinophils % 1 2 Basophils % Metamyelocytes % 3 H Myelocytes % 1 3 H Nucleated RBC % 0 0 Normal RBC Morphology Normal Normal INR (Anticoag Therapy) APTT Sodium 136 Potassium 4.4 Chloride 110 Carbon Dioxide 21 L Anion Gap 5 BUN 19 Creatinine 1.18 H Est GFR ( Amer) 75.8 Est GFR (Non-Af Amer) 59.0 BUN/Creatinine Ratio 16.1 Glucose 143 H POC Glucose (mg/dL) Calcium 7.7 L Phosphorus Magnesium Total Bilirubin Direct Bilirubin Indirect Bilirubin AST ALT Alkaline Phosphatase Total Protein Albumin Globulin Albumin/Globulin Ratio Prealbumin Triglycerides Cholesterol Ur Random Creatinine Ur Random Sodium 12/29/16 12/29/16 12/30/16 06:42 06:42 04:25 WBC 18.0 H RBC 4.55 Hgb 13.4 L Hct 41 L MCV 90 MCH 29 MCHC 33 RDW 15 Plt Count 326 MPV 8 Immature Gran % (Auto) 5 Neut % (Auto) 83.0 Lymph % (Auto) 9.7 L [place] % (Auto) 5.0 Eos % (Auto) 2.0 Baso % (Auto) 0.3 Absolute Neuts (auto) 14.9 H Absolute Lymphs (auto) 1.7 Absolute Monos (auto) 0.9 H Absolute Eos (auto) 0.4 Absolute Basos (auto) 0.1 Absolute Nucleated RBC 0.01 Neutrophils % 77 Band Neutrophils % 2 Lymphocytes % 12 L Reactive Lymphs % 1 Monocytes % 4 Eosinophils % 1 Basophils % Metamyelocytes % 2 Myelocytes % 1 Nucleated RBC % 0 Normal RBC Morphology Normal INR (Anticoag Therapy) APTT Sodium 138 133 Potassium 3.7 4.1 Chloride 108 111 Carbon Dioxide 24 17 L Anion Gap 6 5 BUN 12 9 Creatinine 1.28 H 1.17 Est GFR ( Amer) 69.0 76.6 Est GFR (Non-Af Amer) 53.7 59.5 BUN/Creatinine Ratio 9.4 7.7 L Glucose 146 H 139 H POC Glucose (mg/dL) Calcium 8.0 L 7.3 L Phosphorus Magnesium 1.7 L 2.0 Total Bilirubin 0.40 Direct Bilirubin Indirect Bilirubin AST 48 H ALT 22 Alkaline Phosphatase 44 Total Protein 4.9 L Albumin 2.3 L Globulin 2.6 Albumin/Globulin Ratio 0.9 L Prealbumin 12 L Triglycerides Cholesterol Ur Random Creatinine Ur Random Sodium 12/30/16 12/31/16 01/01/17 10:52 06:34 05:55 WBC 16.2 H 17.1 H 15.0 H RBC 4.55 4.34 4.37 Hgb 13.4 L 12.9 L 13.0 L Hct 41 L 39 L 39 L MCV 91 90 90 MCH 30 30 30 MCHC 33 33 33 RDW 15 15 15 Plt Count 273 275 253 MPV 8 8 8 Immature Gran % (Auto) 5 2 Neut % (Auto) 84.6 H 81.8 Lymph % (Auto) 8.0 L 10.5 L [place] % (Auto) 4.6 4.9 Eos % (Auto) 1.7 1.7 Baso % (Auto) 1.1 1.1 Absolute Neuts (auto) 13.7 H 14.0 H Absolute Lymphs (auto) 1.3 1.8 Absolute Monos (auto) 0.7 0.8 Absolute Eos (auto) 0.3 0.3 Absolute Basos (auto) 0.2 0.2 Absolute Nucleated RBC 0.01 0.01 Neutrophils % 86 H 83 Band Neutrophils % 3 1 Lymphocytes % 7 L 7 L Reactive Lymphs % Monocytes % 1 6 Eosinophils % 1 1 Basophils % 1 Metamyelocytes % 2 Myelocytes % 1 Nucleated RBC % 0 0 Normal RBC Morphology Normal Normal INR (Anticoag Therapy) APTT Sodium Potassium Chloride Carbon Dioxide Anion Gap BUN Creatinine Est GFR ( Amer) Est GFR (Non-Af Amer) BUN/Creatinine Ratio Glucose POC Glucose (mg/dL) Calcium Phosphorus Magnesium Total Bilirubin Direct Bilirubin Indirect Bilirubin AST ALT Alkaline Phosphatase Total Protein Albumin Globulin Albumin/Globulin Ratio Prealbumin Triglycerides Cholesterol Ur Random Creatinine Ur Random Sodium 01/01/17 01/02/17 01/02/17 05:55 06:16 12:55 WBC 13.0 H RBC 4.23 Hgb 12.5 L Hct 39 L MCV 91 MCH 30 MCHC 33 RDW 16 H Plt Count 311 MPV 8 Immature Gran % (Auto) 2 Neut % (Auto) 80.6 Lymph % (Auto) 11.4 L [place] % (Auto) 5.9 Eos % (Auto) 1.7 Baso % (Auto) 0.4 Absolute Neuts (auto) 10.5 H Absolute Lymphs (auto) 1.5 Absolute Monos (auto) 0.8 Absolute Eos (auto) 0.2 Absolute Basos (auto) 0 Absolute Nucleated RBC 0 Neutrophils % 83 Band Neutrophils % Lymphocytes % 9 L Reactive Lymphs % Monocytes % 6 Eosinophils % Basophils % Metamyelocytes % Myelocytes % 2 H Nucleated RBC % 0 Normal RBC Morphology Normal INR (Anticoag Therapy) APTT Sodium 137 138 Potassium 3.8 3.9 Chloride 106 106 Carbon Dioxide 25 25 Anion Gap 6 7 BUN 8 9 Creatinine 1.20 H 1.22 H Est GFR ( Amer) 74.4 73.0 Est GFR (Non-Af Amer) 57.8 56.7 BUN/Creatinine Ratio 6.7 L 7.4 L Glucose 149 H 134 H POC Glucose (mg/dL) Calcium 8.1 L 8.2 L Phosphorus 2.7 Magnesium 1.6 L Total Bilirubin 0.40 0.30 Direct Bilirubin 0.00 L Indirect Bilirubin Stage [employer]ian Helper AST 26 21 ALT 23 20 Alkaline Phosphatase 47 54 Total Protein 5.6 L 5.9 L Albumin 2.9 L 3.0 L Globulin 2.7 2.9 Albumin/Globulin Ratio 1.1 1.0 Prealbumin 19 Triglycerides 186 Cholesterol 185 Ur Random Creatinine Ur Random Sodium 01/02/17 01/03/17 01/03/17 21:07 00:39 04:12 WBC RBC Hgb Hct MCV MCH MCHC RDW Plt Count MPV Immature Gran % (Auto) Neut % (Auto) Lymph % (Auto) [place] % (Auto) Eos % (Auto) Baso % (Auto) Absolute Neuts (auto) Absolute Lymphs (auto) Absolute Monos (auto) Absolute Eos (auto) Absolute Basos (auto) Absolute Nucleated RBC Neutrophils % Band Neutrophils % Lymphocytes % Reactive Lymphs % Monocytes % Eosinophils % Basophils % Metamyelocytes % Myelocytes % Nucleated RBC % Normal RBC Morphology INR (Anticoag Therapy) APTT Sodium Potassium Chloride Carbon Dioxide Anion Gap BUN Creatinine Est GFR ( Amer) Est GFR (Non-Af Amer) BUN/Creatinine Ratio Glucose POC Glucose (mg/dL) 165 H 194 H 172 H Calcium Phosphorus Magnesium Total Bilirubin Direct Bilirubin Indirect Bilirubin AST ALT Alkaline Phosphatase Total Protein Albumin Globulin Albumin/Globulin Ratio Prealbumin Triglycerides Cholesterol Ur Random Creatinine Ur Random Sodium 01/03/17 01/03/17 01/03/17 06:12 07:20 07:34 WBC RBC Hgb Hct MCV MCH MCHC RDW Plt Count MPV Immature Gran % (Auto) Neut % (Auto) Lymph % (Auto) [place] % (Auto) Eos % (Auto) Baso % (Auto) Absolute Neuts (auto) Absolute Lymphs (auto) Absolute Monos (auto) Absolute Eos (auto) Absolute Basos (auto) Absolute Nucleated RBC Neutrophils % Band Neutrophils % Lymphocytes % Reactive Lymphs % Monocytes % Eosinophils % Basophils % Metamyelocytes % Myelocytes % Nucleated RBC % Normal RBC Morphology INR (Anticoag Therapy) APTT Sodium Cancelled 135 Potassium Cancelled 4.1 Chloride Cancelled 104 Carbon Dioxide Cancelled 25 Anion Gap Cancelled 6 BUN Cancelled 15 Creatinine Cancelled 1.17 Est GFR ( Amer) Cancelled 76.6 Est GFR (Non-Af Amer) Cancelled 59.5 BUN/Creatinine Ratio Cancelled 12.8 Glucose Cancelled 144 H POC Glucose (mg/dL) 151 H Calcium Cancelled 8.5 L Phosphorus Cancelled 2.6 Magnesium Cancelled 1.8 L Total Bilirubin Cancelled 0.30 Direct Bilirubin Indirect Bilirubin AST Cancelled 16 ALT Cancelled 18 Alkaline Phosphatase Cancelled 46 Total Protein Cancelled 5.9 L Albumin Cancelled 3.1 L Globulin Cancelled 2.8 Albumin/Globulin Ratio Cancelled 1.1 Prealbumin Triglycerides Cancelled 162 Cholesterol Ur Random Creatinine Ur Random Sodium 01/03/17 01/03/17 01/03/17 12:04 16:35 21:21 WBC RBC Hgb Hct MCV MCH MCHC RDW Plt Count MPV Immature Gran % (Auto) Neut % (Auto) Lymph % (Auto) [place] % (Auto) Eos % (Auto) Baso % (Auto) Absolute Neuts (auto) Absolute Lymphs (auto) Absolute Monos (auto) Absolute Eos (auto) Absolute Basos (auto) Absolute Nucleated RBC Neutrophils % Band Neutrophils % Lymphocytes % Reactive Lymphs % Monocytes % Eosinophils % Basophils % Metamyelocytes % Myelocytes % Nucleated RBC % Normal RBC Morphology INR (Anticoag Therapy) APTT Sodium Potassium Chloride Carbon Dioxide Anion Gap BUN Creatinine Est GFR ( Amer) Est GFR (Non-Af Amer) BUN/Creatinine Ratio Glucose POC Glucose (mg/dL) 169 H 144 H 80 Calcium Phosphorus Magnesium Total Bilirubin Direct Bilirubin Indirect Bilirubin AST ALT Alkaline Phosphatase Total Protein Albumin Globulin Albumin/Globulin Ratio Prealbumin Triglycerides Cholesterol Ur Random Creatinine Ur Random Sodium 01/03/17 01/04/17 01/04/17 21:25 01:13 05:35 WBC 15.2 H RBC 4.10 Hgb 12.1 L Hct 37 L MCV 90 MCH 30 MCHC 33 RDW 16 H Plt Count 373 MPV 8 Immature Gran % (Auto) Neut % (Auto) 82.6 Lymph % (Auto) 8.4 L [place] % (Auto) 6.5 Eos % (Auto) 1.6 Baso % (Auto) 0.9 Absolute Neuts (auto) 12.6 H Absolute Lymphs (auto) 1.3 Absolute Monos (auto) 1.0 H Absolute Eos (auto) 0.2 Absolute Basos (auto) 0.1 Absolute Nucleated RBC 0.01 Neutrophils % Band Neutrophils % Lymphocytes % Reactive Lymphs % Monocytes % Eosinophils % Basophils % Metamyelocytes % Myelocytes % Nucleated RBC % 0 Normal RBC Morphology INR (Anticoag Therapy) APTT Sodium Potassium Chloride Carbon Dioxide Anion Gap BUN Creatinine Est GFR ( Amer) Est GFR (Non-Af Amer) BUN/Creatinine Ratio Glucose POC Glucose (mg/dL) 150 H 163 H Calcium Phosphorus Magnesium Total Bilirubin Direct Bilirubin Indirect Bilirubin AST ALT Alkaline Phosphatase Total Protein Albumin Globulin Albumin/Globulin Ratio Prealbumin Triglycerides Cholesterol Ur Random Creatinine Ur Random Sodium 01/04/17 01/04/17 01/04/17 05:35 05:49 07:50 WBC RBC Hgb Hct MCV MCH MCHC RDW Plt Count MPV Immature Gran % (Auto) Neut % (Auto) Lymph % (Auto) [place] % (Auto) Eos % (Auto) Baso % (Auto) Absolute Neuts (auto) Absolute Lymphs (auto) Absolute Monos (auto) Absolute Eos (auto) Absolute Basos (auto) Absolute Nucleated RBC Neutrophils % Band Neutrophils % Lymphocytes % Reactive Lymphs % Monocytes % Eosinophils % Basophils % Metamyelocytes % Myelocytes % Nucleated RBC % Normal RBC Morphology INR (Anticoag Therapy) APTT Sodium 136 Potassium 4.3 Chloride 107 Carbon Dioxide 24 Anion Gap 5 BUN 24 Creatinine 1.23 H Est GFR ( Amer) 72.3 Est GFR (Non-Af Amer) 56.2 BUN/Creatinine Ratio 19.5 Glucose 151 H POC Glucose (mg/dL) 164 H 184 H Calcium 8.6 Phosphorus 3.1 Magnesium 1.9 Total Bilirubin 0.30 Direct Bilirubin Indirect Bilirubin AST 15 ALT 17 Alkaline Phosphatase 43 Total Protein 5.6 L Albumin 2.9 L Globulin 2.7 Albumin/Globulin Ratio 1.1 Prealbumin Triglycerides 127 Cholesterol Ur Random Creatinine Ur Random Sodium 01/04/17 01/04/17 01/05/17 12:09 19:57 00:18 WBC RBC Hgb Hct MCV MCH MCHC RDW Plt Count MPV Immature Gran % (Auto) Neut % (Auto) Lymph % (Auto) [place] % (Auto) Eos % (Auto) Baso % (Auto) Absolute Neuts (auto) Absolute Lymphs (auto) Absolute Monos (auto) Absolute Eos (auto) Absolute Basos (auto) Absolute Nucleated RBC Neutrophils % Band Neutrophils % Lymphocytes % Reactive Lymphs % Monocytes % Eosinophils % Basophils % Metamyelocytes % Myelocytes % Nucleated RBC % Normal RBC Morphology INR (Anticoag Therapy) APTT Sodium Potassium Chloride Carbon Dioxide Anion Gap BUN Creatinine Est GFR ( Amer) Est GFR (Non-Af Amer) BUN/Creatinine Ratio Glucose POC Glucose (mg/dL) 181 H 160 H 188 H Calcium Phosphorus Magnesium Total Bilirubin Direct Bilirubin Indirect Bilirubin AST ALT Alkaline Phosphatase Total Protein Albumin Globulin Albumin/Globulin Ratio Prealbumin Triglycerides Cholesterol Ur Random Creatinine Ur Random Sodium 01/05/17 01/05/17 01/05/17 03:50 07:55 08:46 WBC 16.8 H RBC 4.21 Hgb 12.5 L Hct 38 L MCV 91 MCH 30 MCHC 33 RDW 16 H Plt Count 408 MPV 8 Immature Gran % (Auto) Neut % (Auto) 83.9 H Lymph % (Auto) 7.6 L [place] % (Auto) 6.0 Eos % (Auto) 1.9 Baso % (Auto) 0.6 Absolute Neuts (auto) 14.1 H Absolute Lymphs (auto) 1.3 Absolute Monos (auto) 1.0 H Absolute Eos (auto) 0.3 Absolute Basos (auto) 0.1 Absolute Nucleated RBC 0 Neutrophils % Band Neutrophils % Lymphocytes % Reactive Lymphs % Monocytes % Eosinophils % Basophils % Metamyelocytes % Myelocytes % Nucleated RBC % 0 Normal RBC Morphology INR (Anticoag Therapy) APTT Sodium Potassium Chloride Carbon Dioxide Anion Gap BUN Creatinine Est GFR ( Amer) Est GFR (Non-Af Amer) BUN/Creatinine Ratio Glucose POC Glucose (mg/dL) 179 H 173 H Calcium Phosphorus Magnesium Total Bilirubin Direct Bilirubin Indirect Bilirubin AST ALT Alkaline Phosphatase Total Protein Albumin Globulin Albumin/Globulin Ratio Prealbumin Triglycerides Cholesterol Ur Random Creatinine Ur Random Sodium 01/05/17 01/05/17 01/05/17 12:18 16:31 20:04 WBC RBC Hgb Hct MCV MCH MCHC RDW Plt Count MPV Immature Gran % (Auto) Neut % (Auto) Lymph % (Auto) [place] % (Auto) Eos % (Auto) Baso % (Auto) Absolute Neuts (auto) Absolute Lymphs (auto) Absolute Monos (auto) Absolute Eos (auto) Absolute Basos (auto) Absolute Nucleated RBC Neutrophils % Band Neutrophils % Lymphocytes % Reactive Lymphs % Monocytes % Eosinophils % Basophils % Metamyelocytes % Myelocytes % Nucleated RBC % Normal RBC Morphology INR (Anticoag Therapy) APTT Sodium Potassium Chloride Carbon Dioxide Anion Gap BUN Creatinine Est GFR ( Amer) Est GFR (Non-Af Amer) BUN/Creatinine Ratio Glucose POC Glucose (mg/dL) 208 H 180 H 168 H Calcium Phosphorus Magnesium Total Bilirubin Direct Bilirubin Indirect Bilirubin AST ALT Alkaline Phosphatase Total Protein Albumin Globulin Albumin/Globulin Ratio Prealbumin Triglycerides Cholesterol Ur Random Creatinine Ur Random Sodium 01/06/17 01/06/17 01/06/17 00:23 03:46 05:57 WBC 14.6 H RBC 3.85 L Hgb 12.3 L Hct 38 L MCV 98 H MCH 32 H MCHC 33 RDW 17 H Plt Count 377 MPV 8 Immature Gran % (Auto) Neut % (Auto) 82.1 Lymph % (Auto) 8.2 L [place] % (Auto) 6.5 Eos % (Auto) 2.1 Baso % (Auto) 1.1 Absolute Neuts (auto) 12.0 H Absolute Lymphs (auto) 1.2 Absolute Monos (auto) 1.0 H Absolute Eos (auto) 0.3 Absolute Basos (auto) 0.2 Absolute Nucleated RBC 0 Neutrophils % Band Neutrophils % Lymphocytes % Reactive Lymphs % Monocytes % Eosinophils % Basophils % Metamyelocytes % Myelocytes % Nucleated RBC % 0 Normal RBC Morphology INR (Anticoag Therapy) APTT Sodium Potassium Chloride Carbon Dioxide Anion Gap BUN Creatinine Est GFR ( Amer) Est GFR (Non-Af Amer) BUN/Creatinine Ratio Glucose POC Glucose (mg/dL) 192 H 195 H Calcium Phosphorus Magnesium Total Bilirubin Direct Bilirubin Indirect Bilirubin AST ALT Alkaline Phosphatase Total Protein Albumin Globulin Albumin/Globulin Ratio Prealbumin Triglycerides Cholesterol Ur Random Creatinine Ur Random Sodium 01/06/17 01/06/17 05:57 07:31 WBC RBC Hgb Hct MCV MCH MCHC RDW Plt Count MPV Immature Gran % (Auto) Neut % (Auto) Lymph % (Auto) [place] % (Auto) Eos % (Auto) Baso % (Auto) Absolute Neuts (auto) Absolute Lymphs (auto) Absolute Monos (auto) Absolute Eos (auto) Absolute Basos (auto) Absolute Nucleated RBC Neutrophils % Band Neutrophils % Lymphocytes % Reactive Lymphs % Monocytes % Eosinophils % Basophils % Metamyelocytes % Myelocytes % Nucleated RBC % Normal RBC Morphology INR (Anticoag Therapy) APTT Sodium Cancelled 132 L Potassium Cancelled 4.7 Chloride Cancelled 106 Carbon Dioxide Cancelled 20 L Anion Gap Cancelled 6 BUN Cancelled 34 H Creatinine Cancelled 1.31 H Est GFR ( Amer) Cancelled 67.2 Est GFR (Non-Af Amer) Cancelled 52.3 BUN/Creatinine Ratio Cancelled 26.0 H Glucose Cancelled 175 H POC Glucose (mg/dL) Calcium Cancelled 8.8 Phosphorus Cancelled 2.8 Magnesium Cancelled 2.0 Total Bilirubin Cancelled 0.30 Direct Bilirubin Indirect Bilirubin AST Cancelled 17 ALT Cancelled 22 Alkaline Phosphatase Cancelled 49 Total Protein Cancelled 6.1 L Albumin Cancelled 3.2 Globulin Cancelled 2.9 Albumin/Globulin Ratio Cancelled 1.1 Prealbumin Cancelled Triglycerides Cancelled 119 Cholesterol Cancelled 177 Ur Random Creatinine Ur Random Sodium Exam Appearance: Thin Framed Hygiene: Normal Grooming: Fairly Well Kept Psychomotor Activities: Abnormal-Decreased Exhibits Abnormal Movement: No Attitude and Relatedness: Withdrawn Eye Contact: Poor - Speech Quality: Unpressured Latencies: Long Quantity: Terse Patient's Decription of Mood: "Sad" Observed Affect: Constricted Affect Consistent with: Dysphoria Patient's Thought Process: Impoverished Thought Content: Yes Passive Wish, No Suicidal Planning, No Homicidal Ideation, No Paranoid Ideation Experiencing Hallucinations: No, Sensorium is Clear Type of Hallucinations: Visual: No, Auditory: No, Command: No Level of Consciousness: Lethargic Orientation: Yes Intact, Yes Orientated to Time, Yes Orientated to Place, Yes Orientated to Person Impulse Control: Poor Insight and Judgement: Impaired Impression - Impression Clinical Impression: 81 y.o. , white male with a history of recurrent MDD and successful past ECT treatment presents with severe depression and neurovegetative symptoms while hospitalized on the [facility] for acute diverticulitis and abdominal abscess. The patient lacks capacity to make informed medical decisions although we are still trying to secure his assent to ECT treatment. Merits Inpatient Hospitalization: Yes Problem List - MHU Problems Type of Problem: Mood Status of Problem: Active Plan - Treatment Plan Treatment Plan: The patient is refusing oral antidepressant medications and would benefit from ECT treatment in a secured, inpatient setting. We have sent referral documents to [facility], c/o Dr. Ania Luis, and await acceptance/refusal decision. This clinician will continue to work on getting him accepted at [facility] and will notify [facility] personnel when a bed is, hopefully, available. Medications: Current Medications Amlodipine Besylate (Norvasc Tab*) 10 mg PO DAILY [facility] Last Admin: 01/06/17 08:35 Dose: Not Given Bupropion HCl (Wellbutrin Sr Tab*) 150 mg PO DAILY [facility] Last Admin: 01/06/17 08:35 Dose: Not Given Calcium Carbonate (Tums*) 500 mg PO Q4H PRN PRN Reason: HEARTBURN Last Admin: 12/30/16 16:59 Dose: 500 mg Heparin Sodium (Porcine) (Heparin Flush Picc/Ml/Cvc(*)) 1 - 3 ml FLUSH 0600, 1800 [facility] PRN Reason: Protocol Last Admin: 01/06/17 07:22 Dose: 1 ml Heparin Sodium (Porcine) (Heparin Vial(*)) 5,000 units SUBCUT Q8HR [facility] Last Admin: 01/06/17 05:49 Dose: 5,000 units Piperacillin Sod/Tazobactam (Sod 3.375 gm/ Sodium Chloride) 100 mls @ 25 mls/ hr IVPB Q8H [facility] Last Admin: 01/06/17 08:17 Dose: 25 mls/hr Dextrose 500 ml/ Amino Acids 850 ml/ Sterile Water 150 ml/Fat Emulsion Intravenous 250 ml/ Sodium Chloride 100 meq/Potassium Chloride 50 meq/Potassium Phosphate 15 mmole/Calcium Gluconate 15 meq/Magnesium Sulfate 10 meq/ Multivitamins 10 ml/ Trace Metals 3 ml/ Phytonadione 0.2 mg/ Nutrition ( Parenteral) 1,852.821 mls @ 77.083 mls/hr [facility] 1700 [facility] Last Admin: 01/05/17 16:53 Dose: 77.083 mls/hr Lidocaine (Xylocaine 2% Viscous*) 20 ml SWISH SPIT TID PRN PRN Reason: PAIN Lisinopril (Prinivil Tab*) 10 mg PO DAILY [facility] Last Admin: 01/06/17 08:36 Dose: Not Given Lorazepam (Ativan Tab(*)) 0.25 mg PO Q8H PRN PRN Reason: ANXIETY Last Admin: 12/29/16 09:27 Dose: 0.25 mg Olanzapine (Zyprexa Tab*) 2.5 mg PO BEDTIME [facility] Last Admin: 01/05/17 20:05 Dose: Not Given Ondansetron HCl (Zofran Inj*) 4 mg IV Q4H PRN PRN Reason: NAUSEA/VOMITING Pantoprazole Sodium (Protonix Iv*) 40 mg IV Q24H [facility] Last Admin: 01/05/17 20:05 Dose: 40 mg Pharmacy Consult (Zosyn Per Pharmacy*) 1 note FOLLOW UP .ZOSYN PER PHARMACY [facility] Sertraline HCl (Zoloft*) 100 mg PO DAILY [facility] Last Admin: 01/06/17 08:36 Dose: Not Given Sodium Bicarbonate (Sodium Bicarbonate (Antacid)*) 650 mg PO AC [facility] Last Admin: 01/06/17 08:35 Dose: Not Given - Discharge Plan Discharge Plan: Inpatient Hospitalization
--- NOTE | 2017-01-06 12:57 | PN ---
Progress Note - Progress Note Date of Service: 01/06/17 Note: Surgery Progress: S: patient seen this a.m. ~ 0830. Pt denies abd pain (his only pain: "in my head "). He is eating little if nothing. Denies N/V. Had BM yesterday. Ambulating minimally w/ assist from floor staff. Dr. Granados's note from today is reviewed. O: Vital Signs - 8 hr 01/06/17 01/06/17 07:35 08:00 Temperature 98.3 F Pulse Rate 89 Respiratory 16 16 Rate Blood Pressure 145/72 (mmHg) O2 Sat by Pulse 95 Oximetry Intake and Output Last 24 Hours 01/04/17 01/05/17 01/06/17 01/07/17 06:59 06:59 06:59 06:59 Intake Total 2920 3500 2554.3 Output Total 2485 1090 570 250 Balance 435 2410 1984.3 -250 Weight 140 lb 12.8 oz 141 lb 1.6 oz Intake: IV Fluids 70 15 264.3 ABX - PIPERACILLIN 205 NS (0.9%) 70 15 59.3 IVPB 327 320 ABX - PIPERACILLIN 327 320 TPN/PPN 1063 2775 1820 Oral 1460 390 470 Packed Cells 0 Output: Pigtail Drain 35 40 45 Urine 2450 1050 525 250 Other: Estimated Void Large Large Medium Date of Last Bowel 01/04/17 01/06/17 Movement # Bowel Movements 0 1 1 Estimated Stool Amount Medium Small # Voids 1 1 Gen: withdrawn; voice soft; NAD Heart: reg Lungs: clear Abd: +BS (hypoactive); soft; no tenderness elicited. Drainage in pigtail cath is clear in tubing. Laboratory Tests 01/05/17 01/05/17 01/06/17 16:31 20:04 00:23 WBC Sodium BUN Creatinine Glucose POC Glucose (mg/dL) 180 H 168 H 192 H Phosphorus Magnesium Albumin 01/06/17 01/06/17 01/06/17 03:46 05:57 07:31 WBC 14.6 H Sodium 132 L BUN 34 H Creatinine 1.31 H Glucose 175 H POC Glucose (mg/dL) 195 H Phosphorus 2.8 Magnesium 2.0 Albumin 3.2 A: s/p perc drainage of prob diverticular abscess w/ overall clinical improvement, but ongoing anorexia (2/2 depression?) w/ rec for ECT by Psych ( would require tx to [facility]; that is pending) P: per Dr. Araya's request the pigtain drain was removed w/o incident; of note, there was some add'l purulent appearing drainage at the time of removal. Cont abx for now (Zosyn) pending poss tx for ECT. Cont TPN.
[2017-01-06] MEDS ORDERED: TPN* 24 HR with Dextrose 50% Water* 500 ML, Amino Acid Infusion 10%* 850 ML, Sterile Wa... CENTR SCH ×14 (13:06)
[2017-01-06] MEDS: Pantoprazole IV* 40 MG IV SCH (22:05)
[2017-01-06] MEDS: OLANzapine TAB* 2.5 MG PO SCH (22:05)
[2017-01-07] MEDS: ZOSYN 3.375 GM Q8H per EXTENDED INFUSION IVPB SCH ×4 (01:04→08:45)
[2017-01-07] MEDS: Heparin VIAL(*) 5000 UNITS/ML VIAL (FIVE THOUSAND) SUBCUT SCH (06:09)
--- NOTE | 2017-01-07 08:44 | PN ---
Progress Note - Progress Note Date of Service: 01/07/17 SOAP: Subjective: He appears a little more alert this morning He says he has loose BM's this morning but nurses say this did not occur No abdominal pain or N/V He has no appetite Objective: Temp Pulse Resp BP Pulse Ox 98.0 F 87 20 147/76 97 01/07/17 03:44 01/07/17 03:44 01/07/17 03:44 01/07/17 03:44 01/07/17 03:44 Intake & Output 01/05/17 01/06/17 01/07/17 01/08/17 06:59 06:59 06:59 06:59 Intake Total 3500 2554.3 2861.1 Output Total 8411 336 1151 Balance 2410 1984.3 1736.1 Weight 141 lb 1.6 oz 134 lb 1.6 oz Intake: IV Fluids 15 264.3 464.1 ABX - PIPERACILLIN 205 433 NS (0.9%) 15 59.3 31.1 IVPB 320 ABX - PIPERACILLIN 320 TPN/PPN 2775 1820 1837 Oral 390 470 560 Output: Pigtail Drain 40 45 Urine 5781 461 2011 Other: Estimated Void Large Medium Medium Date of Last Bowel 01/04/17 01/06/17 01/07/17 Movement # Bowel Movements 1 1 1 Estimated Stool Amount Medium Small Small # Voids 1 2 PEX: Comfortable He is awake and alert Abd is soft and non-distended. There is no pain or guarding No masses noted. Bowel sounds are present and are normoactive Drain site without redness or drainage Assessment: Abdominal abscess s/p percutaneous drainage-presumed diverticular in etiology SBO-clinically this appears to have resolved--he has poor oral intake due to poor appetite but no N/V or abdominal distension and had a documented BM yesterday. Malnutrition Depression Plan: Continue IV anbx Draind removed yesterday Increase po as tolerated, continue TPN for now Follow labs-repeat WBC 01/08 Psych-awaiting transfer to psych facility for ECT treatment for depression All of the above discussed with patient's son yesterday. Appreciate Psych and Hospitalist assistance.
[2017-01-07] MEDS: amLODIPine TAB* 5 MG PO SCH (08:47)
[2017-01-07] MEDS: Lisinopril TAB* 10 MG PO SCH (08:47)
[2017-01-07] MEDS: Sertraline* 100 MG TAB PO SCH (08:48)
[2017-01-07] MEDS: Sodium Bicarbonate (ANTACID)* 650 MG TAB PO SCH ×2 (08:56→12:20)
[2017-01-07] MEDS: buPROPion SR TAB.SR* 150 MG PO SCH (08:56)
--- NOTE | 2017-01-07 12:07 | TRS ---
DATE OF ADMISSION: 12/24/2016. DATE OF TRANSFER: 01/07/2017. ACCEPTING HOSPITAL: [facility], [place] [id number] Unit, Psychiatry. ACCEPTING PHYSICIAN: Dr. Ania Luis. REASON FOR TRANSFER: Psychiatric care not available at [facility], which includes electroshock therapy for acute major depression. SECONDARY DIAGNOSES: Intra-abdominal abscess presumed secondary to diverticular perforation, status post percutaneous drainage with subsequent drain removal. CONDITION ON DISCHARGE: Stable. TRANSFER MEDICATIONS: Please see printed medicine list. BRIEF HISTORY: Mr. Phi Clarke is a 81-year-old gentleman who is spending his summer in [place], but lives permanently in [place], [place], who presented to [facility] with several days of abdominal discomfort and developed nausea and vomiting. He was seen in the emergency room and CAT scan of his abdomen and pelvis showed what appeared to be an intra-abdominal abscess , presumed secondary to diverticulitis. He was suddenly transferred to the Hospitalist Service here at [facility] with a Surgical consultation. HOSPITAL COURSE: After being seen and admitted, he was started on broad spectrum IV antibiotics and kept NPO. Nasogastric tube was not inserted. His admission laboratory work-up included a white blood count of 13,000 with mild elevation of his creatinine to 1.3. He underwent percutaneous drainage with interventional radiology on hospital day number one with successful abscess drainage. Concern for a small bowel obstruction secondary to the inflammatory process which was treated nonoperatively. He remained afebrile. His white blood cell count maintained between 13,000 and 15,000. His small bowel obstruction has slowly improved over time and he was started on oral intake which he advanced as tolerated. He was also started on total parenteral nutrition through a PICC line. 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 They did not feel that he had the capacity to make decisions on his own and the diagnosis was acute depression. Since he had responded to electroshock therapy in the past, this was recommended by our psychiatrist here. After discussion with the patient's family, including two sons who are his healthcare proxies, arrangements have been made for transfer to [facility] Psych[facility] Unit for electroshock therapy and continued care of his intra- abdominal abscess. His past medical history is also significant for hypertension and anxiety. He has a remote history of prostate cancer. On the day of transfer, he was tolerating regular food in only in small amounts felt secondary to depression. His percutaneous drain had been removed and he was on total parenteral nutrition which was to be discontinued for transport. [id number]/CPS #: [id number] MTDD
[2017-01-07 12:16] VITALS: BP 151/66
--- NOTE | 2017-01-07 13:08 | CONSULT ---
Identification - Patient Identification Reason for Psychiatric Consultation: Incapacitating Symptoms -: Patient is a 81 year old, M admitted on 12/24/16. - MHU Identification Employment Status: Disabled Hx Psychiatric Hospitalization: Yes History - Objective HPI: Geronimo is seen today in his room where he remains extremely depressed and pessimistic. He feels he lacks the strength to even get up and use the bathroom. When asked about SI, he responds affirmatively and passively, stating "I hope it all just ends." He is unenthusiastic about ECT treatment and transfer to [facility], however, he does not refuse it. Lab Results: Laboratory Tests 12/24/16 12/24/16 12/24/16 19:07 19:07 19:07 WBC 13.5 H RBC 3.95 L Hgb 11.7 L Hct 36 L MCV 91 MCH 30 MCHC 33 RDW 15 Plt Count 263 MPV 8 Immature Gran % (Auto) 24 H Neut % (Auto) 83.4 H Lymph % (Auto) 7.0 L [place] % (Auto) 8.7 Eos % (Auto) 0.6 Baso % (Auto) 0.3 Absolute Neuts (auto) 11.3 H Absolute Lymphs (auto) 0.9 L Absolute Monos (auto) 1.2 H Absolute Eos (auto) 0.1 Absolute Basos (auto) 0 Absolute Nucleated RBC 0 Neutrophils % 63 Band Neutrophils % 21 H Lymphocytes % 10 L Reactive Lymphs % Monocytes % 3 Eosinophils % Basophils % Metamyelocytes % Myelocytes % 3 H Nucleated RBC % 0 Normal RBC Morphology Normal INR (Anticoag Therapy) 1.06 APTT 26.7 Sodium 140 Potassium 3.5 Chloride 110 Carbon Dioxide 21 L Anion Gap 9 BUN 58 H Creatinine 1.45 H Est GFR ( Amer) 59.8 Est GFR (Non-Af Amer) 46.5 BUN/Creatinine Ratio 40.0 H Glucose 87 POC Glucose (mg/dL) Calcium 8.3 L Phosphorus Magnesium Total Bilirubin 0.40 Direct Bilirubin Indirect Bilirubin AST 15 ALT 12 Alkaline Phosphatase 62 Total Protein 5.8 L Albumin 2.9 L Globulin 2.9 Albumin/Globulin Ratio 1.0 Prealbumin Triglycerides Cholesterol Ur Random Creatinine Ur Random Sodium 12/25/16 12/25/16 12/25/16 03:00 07:23 07:23 WBC 13.4 H RBC 3.98 L Hgb 12.0 L Hct 36 L MCV 90 MCH 30 MCHC 33 RDW 15 Plt Count 254 MPV 8 Immature Gran % (Auto) Neut % (Auto) 82.8 Lymph % (Auto) 6.9 L [place] % (Auto) 8.9 Eos % (Auto) 1.2 Baso % (Auto) 0.2 Absolute Neuts (auto) 11.1 H Absolute Lymphs (auto) 0.9 L Absolute Monos (auto) 1.2 H Absolute Eos (auto) 0.2 Absolute Basos (auto) 0 Absolute Nucleated RBC 0 Neutrophils % Band Neutrophils % Lymphocytes % Reactive Lymphs % Monocytes % Eosinophils % Basophils % Metamyelocytes % Myelocytes % Nucleated RBC % 0 Normal RBC Morphology INR (Anticoag Therapy) APTT Sodium 141 Potassium 3.6 Chloride 112 H Carbon Dioxide 21 L Anion Gap 8 BUN 52 H Creatinine 1.45 H Est GFR ( Amer) 59.8 Est GFR (Non-Af Amer) 46.5 BUN/Creatinine Ratio 35.9 H Glucose 96 POC Glucose (mg/dL) Calcium 8.1 L Phosphorus Magnesium Total Bilirubin Direct Bilirubin Indirect Bilirubin AST ALT Alkaline Phosphatase Total Protein Albumin Globulin Albumin/Globulin Ratio Prealbumin Triglycerides Cholesterol Ur Random Creatinine 122.01 Ur Random Sodium 44 12/26/16 12/26/16 12/27/16 08:26 08:28 06:41 WBC 16.7 H RBC 4.45 Hgb 13.3 L Hct 41 L MCV 91 MCH 30 MCHC 33 RDW 15 Plt Count 287 MPV 8 Immature Gran % (Auto) 9 Neut % (Auto) 84.4 H Lymph % (Auto) 8.1 L [place] % (Auto) 5.4 Eos % (Auto) 1.9 Baso % (Auto) 0.2 Absolute Neuts (auto) 14.1 H Absolute Lymphs (auto) 1.3 Absolute Monos (auto) 0.9 H Absolute Eos (auto) 0.3 Absolute Basos (auto) 0 Absolute Nucleated RBC 0.01 Neutrophils % 76 Band Neutrophils % 4 Lymphocytes % 8 L Reactive Lymphs % Monocytes % 6 Eosinophils % 1 Basophils % Metamyelocytes % Myelocytes % 5 H Nucleated RBC % 0 Normal RBC Morphology Normal INR (Anticoag Therapy) APTT Sodium 139 139 Potassium 3.8 3.9 Chloride 113 H 112 H Carbon Dioxide 19 L 21 L Anion Gap 7 6 BUN 46 H 33 H Creatinine 1.44 H 1.30 H Est GFR ( Amer) 60.3 67.8 Est GFR (Non-Af Amer) 46.9 52.7 BUN/Creatinine Ratio 31.9 H 25.4 H Glucose 96 173 H POC Glucose (mg/dL) Calcium 8.5 L 8.0 L Phosphorus 2.4 L Magnesium 1.7 L Total Bilirubin 0.50 Direct Bilirubin Indirect Bilirubin AST 14 ALT 11 Alkaline Phosphatase 73 Total Protein 6.0 L Albumin 3.0 L Globulin 3.0 Albumin/Globulin Ratio 1.0 Prealbumin Triglycerides Cholesterol Ur Random Creatinine Ur Random Sodium 12/27/16 12/28/16 12/28/16 06:42 08:49 08:49 WBC 14.5 H 16.2 H RBC 4.18 4.29 Hgb 12.3 L 12.8 L Hct 38 L 38 L MCV 91 90 MCH 30 30 MCHC 33 33 RDW 16 H 15 Plt Count 279 284 MPV 8 8 Immature Gran % (Auto) 8 5 Neut % (Auto) 84.1 H 88.1 H Lymph % (Auto) 7.4 L 6.3 L [place] % (Auto) 5.4 3.7 Eos % (Auto) 1.7 1.5 Baso % (Auto) 1.4 0.4 Absolute Neuts (auto) 12.2 H 14.2 H Absolute Lymphs (auto) 1.1 1.0 Absolute Monos (auto) 0.8 0.6 Absolute Eos (auto) 0.2 0.2 Absolute Basos (auto) 0.2 0.1 Absolute Nucleated RBC 0.01 0 Neutrophils % 75 84 H Band Neutrophils % 4 2 Lymphocytes % 11 L 4 L Reactive Lymphs % Monocytes % 5 5 Eosinophils % 1 2 Basophils % Metamyelocytes % 3 H Myelocytes % 1 3 H Nucleated RBC % 0 0 Normal RBC Morphology Normal Normal INR (Anticoag Therapy) APTT Sodium 136 Potassium 4.4 Chloride 110 Carbon Dioxide 21 L Anion Gap 5 BUN 19 Creatinine 1.18 H Est GFR ( Amer) 75.8 Est GFR (Non-Af Amer) 59.0 BUN/Creatinine Ratio 16.1 Glucose 143 H POC Glucose (mg/dL) Calcium 7.7 L Phosphorus Magnesium Total Bilirubin Direct Bilirubin Indirect Bilirubin AST ALT Alkaline Phosphatase Total Protein Albumin Globulin Albumin/Globulin Ratio Prealbumin Triglycerides Cholesterol Ur Random Creatinine Ur Random Sodium 12/29/16 12/29/16 12/30/16 06:42 06:42 04:25 WBC 18.0 H RBC 4.55 Hgb 13.4 L Hct 41 L MCV 90 MCH 29 MCHC 33 RDW 15 Plt Count 326 MPV 8 Immature Gran % (Auto) 5 Neut % (Auto) 83.0 Lymph % (Auto) 9.7 L [place] % (Auto) 5.0 Eos % (Auto) 2.0 Baso % (Auto) 0.3 Absolute Neuts (auto) 14.9 H Absolute Lymphs (auto) 1.7 Absolute Monos (auto) 0.9 H Absolute Eos (auto) 0.4 Absolute Basos (auto) 0.1 Absolute Nucleated RBC 0.01 Neutrophils % 77 Band Neutrophils % 2 Lymphocytes % 12 L Reactive Lymphs % 1 Monocytes % 4 Eosinophils % 1 Basophils % Metamyelocytes % 2 Myelocytes % 1 Nucleated RBC % 0 Normal RBC Morphology Normal INR (Anticoag Therapy) APTT Sodium 138 133 Potassium 3.7 4.1 Chloride 108 111 Carbon Dioxide 24 17 L Anion Gap 6 5 BUN 12 9 Creatinine 1.28 H 1.17 Est GFR ( Amer) 69.0 76.6 Est GFR (Non-Af Amer) 53.7 59.5 BUN/Creatinine Ratio 9.4 7.7 L Glucose 146 H 139 H POC Glucose (mg/dL) Calcium 8.0 L 7.3 L Phosphorus Magnesium 1.7 L 2.0 Total Bilirubin 0.40 Direct Bilirubin Indirect Bilirubin AST 48 H ALT 22 Alkaline Phosphatase 44 Total Protein 4.9 L Albumin 2.3 L Globulin 2.6 Albumin/Globulin Ratio 0.9 L Prealbumin 12 L Triglycerides Cholesterol Ur Random Creatinine Ur Random Sodium 12/30/16 12/31/16 01/01/17 10:52 06:34 05:55 WBC 16.2 H 17.1 H 15.0 H RBC 4.55 4.34 4.37 Hgb 13.4 L 12.9 L 13.0 L Hct 41 L 39 L 39 L MCV 91 90 90 MCH 30 30 30 MCHC 33 33 33 RDW 15 15 15 Plt Count 273 275 253 MPV 8 8 8 Immature Gran % (Auto) 5 2 Neut % (Auto) 84.6 H 81.8 Lymph % (Auto) 8.0 L 10.5 L [place] % (Auto) 4.6 4.9 Eos % (Auto) 1.7 1.7 Baso % (Auto) 1.1 1.1 Absolute Neuts (auto) 13.7 H 14.0 H Absolute Lymphs (auto) 1.3 1.8 Absolute Monos (auto) 0.7 0.8 Absolute Eos (auto) 0.3 0.3 Absolute Basos (auto) 0.2 0.2 Absolute Nucleated RBC 0.01 0.01 Neutrophils % 86 H 83 Band Neutrophils % 3 1 Lymphocytes % 7 L 7 L Reactive Lymphs % Monocytes % 1 6 Eosinophils % 1 1 Basophils % 1 Metamyelocytes % 2 Myelocytes % 1 Nucleated RBC % 0 0 Normal RBC Morphology Normal Normal INR (Anticoag Therapy) APTT Sodium Potassium Chloride Carbon Dioxide Anion Gap BUN Creatinine Est GFR ( Amer) Est GFR (Non-Af Amer) BUN/Creatinine Ratio Glucose POC Glucose (mg/dL) Calcium Phosphorus Magnesium Total Bilirubin Direct Bilirubin Indirect Bilirubin AST ALT Alkaline Phosphatase Total Protein Albumin Globulin Albumin/Globulin Ratio Prealbumin Triglycerides Cholesterol Ur Random Creatinine Ur Random Sodium 01/01/17 01/02/17 01/02/17 05:55 06:16 12:55 WBC 13.0 H RBC 4.23 Hgb 12.5 L Hct 39 L MCV 91 MCH 30 MCHC 33 RDW 16 H Plt Count 311 MPV 8 Immature Gran % (Auto) 2 Neut % (Auto) 80.6 Lymph % (Auto) 11.4 L [place] % (Auto) 5.9 Eos % (Auto) 1.7 Baso % (Auto) 0.4 Absolute Neuts (auto) 10.5 H Absolute Lymphs (auto) 1.5 Absolute Monos (auto) 0.8 Absolute Eos (auto) 0.2 Absolute Basos (auto) 0 Absolute Nucleated RBC 0 Neutrophils % 83 Band Neutrophils % Lymphocytes % 9 L Reactive Lymphs % Monocytes % 6 Eosinophils % Basophils % Metamyelocytes % Myelocytes % 2 H Nucleated RBC % 0 Normal RBC Morphology Normal INR (Anticoag Therapy) APTT Sodium 137 138 Potassium 3.8 3.9 Chloride 106 106 Carbon Dioxide 25 25 Anion Gap 6 7 BUN 8 9 Creatinine 1.20 H 1.22 H Est GFR ( Amer) 74.4 73.0 Est GFR (Non-Af Amer) 57.8 56.7 BUN/Creatinine Ratio 6.7 L 7.4 L Glucose 149 H 134 H POC Glucose (mg/dL) Calcium 8.1 L 8.2 L Phosphorus 2.7 Magnesium 1.6 L Total Bilirubin 0.40 0.30 Direct Bilirubin 0.00 L Indirect Bilirubin [employer] AST 26 21 ALT 23 20 Alkaline Phosphatase 47 54 Total Protein 5.6 L 5.9 L Albumin 2.9 L 3.0 L Globulin 2.7 2.9 Albumin/Globulin Ratio 1.1 1.0 Prealbumin 19 Triglycerides 186 Cholesterol 185 Ur Random Creatinine Ur Random Sodium 01/02/17 01/03/17 01/03/17 21:07 00:39 04:12 WBC RBC Hgb Hct MCV MCH MCHC RDW Plt Count MPV Immature Gran % (Auto) Neut % (Auto) Lymph % (Auto) [place] % (Auto) Eos % (Auto) Baso % (Auto) Absolute Neuts (auto) Absolute Lymphs (auto) Absolute Monos (auto) Absolute Eos (auto) Absolute Basos (auto) Absolute Nucleated RBC Neutrophils % Band Neutrophils % Lymphocytes % Reactive Lymphs % Monocytes % Eosinophils % Basophils % Metamyelocytes % Myelocytes % Nucleated RBC % Normal RBC Morphology INR (Anticoag Therapy) APTT Sodium Potassium Chloride Carbon Dioxide Anion Gap BUN Creatinine Est GFR ( Amer) Est GFR (Non-Af Amer) BUN/Creatinine Ratio Glucose POC Glucose (mg/dL) 165 H 194 H 172 H Calcium Phosphorus Magnesium Total Bilirubin Direct Bilirubin Indirect Bilirubin AST ALT Alkaline Phosphatase Total Protein Albumin Globulin Albumin/Globulin Ratio Prealbumin Triglycerides Cholesterol Ur Random Creatinine Ur Random Sodium 01/03/17 01/03/17 01/03/17 06:12 07:20 07:34 WBC RBC Hgb Hct MCV MCH MCHC RDW Plt Count MPV Immature Gran % (Auto) Neut % (Auto) Lymph % (Auto) [place] % (Auto) Eos % (Auto) Baso % (Auto) Absolute Neuts (auto) Absolute Lymphs (auto) Absolute Monos (auto) Absolute Eos (auto) Absolute Basos (auto) Absolute Nucleated RBC Neutrophils % Band Neutrophils % Lymphocytes % Reactive Lymphs % Monocytes % Eosinophils % Basophils % Metamyelocytes % Myelocytes % Nucleated RBC % Normal RBC Morphology INR (Anticoag Therapy) APTT Sodium Cancelled 135 Potassium Cancelled 4.1 Chloride Cancelled 104 Carbon Dioxide Cancelled 25 Anion Gap Cancelled 6 BUN Cancelled 15 Creatinine Cancelled 1.17 Est GFR ( Amer) Cancelled 76.6 Est GFR (Non-Af Amer) Cancelled 59.5 BUN/Creatinine Ratio Cancelled 12.8 Glucose Cancelled 144 H POC Glucose (mg/dL) 151 H Calcium Cancelled 8.5 L Phosphorus Cancelled 2.6 Magnesium Cancelled 1.8 L Total Bilirubin Cancelled 0.30 Direct Bilirubin Indirect Bilirubin AST Cancelled 16 ALT Cancelled 18 Alkaline Phosphatase Cancelled 46 Total Protein Cancelled 5.9 L Albumin Cancelled 3.1 L Globulin Cancelled 2.8 Albumin/Globulin Ratio Cancelled 1.1 Prealbumin Triglycerides Cancelled 162 Cholesterol Ur Random Creatinine Ur Random Sodium 01/03/17 01/03/17 01/03/17 12:04 16:35 21:21 WBC RBC Hgb Hct MCV MCH MCHC RDW Plt Count MPV Immature Gran % (Auto) Neut % (Auto) Lymph % (Auto) [place] % (Auto) Eos % (Auto) Baso % (Auto) Absolute Neuts (auto) Absolute Lymphs (auto) Absolute Monos (auto) Absolute Eos (auto) Absolute Basos (auto) Absolute Nucleated RBC Neutrophils % Band Neutrophils % Lymphocytes % Reactive Lymphs % Monocytes % Eosinophils % Basophils % Metamyelocytes % Myelocytes % Nucleated RBC % Normal RBC Morphology INR (Anticoag Therapy) APTT Sodium Potassium Chloride Carbon Dioxide Anion Gap BUN Creatinine Est GFR ( Amer) Est GFR (Non-Af Amer) BUN/Creatinine Ratio Glucose POC Glucose (mg/dL) 169 H 144 H 80 Calcium Phosphorus Magnesium Total Bilirubin Direct Bilirubin Indirect Bilirubin AST ALT Alkaline Phosphatase Total Protein Albumin Globulin Albumin/Globulin Ratio Prealbumin Triglycerides Cholesterol Ur Random Creatinine Ur Random Sodium 01/03/17 01/04/17 01/04/17 21:25 01:13 05:35 WBC 15.2 H RBC 4.10 Hgb 12.1 L Hct 37 L MCV 90 MCH 30 MCHC 33 RDW 16 H Plt Count 373 MPV 8 Immature Gran % (Auto) Neut % (Auto) 82.6 Lymph % (Auto) 8.4 L [place] % (Auto) 6.5 Eos % (Auto) 1.6 Baso % (Auto) 0.9 Absolute Neuts (auto) 12.6 H Absolute Lymphs (auto) 1.3 Absolute Monos (auto) 1.0 H Absolute Eos (auto) 0.2 Absolute Basos (auto) 0.1 Absolute Nucleated RBC 0.01 Neutrophils % Band Neutrophils % Lymphocytes % Reactive Lymphs % Monocytes % Eosinophils % Basophils % Metamyelocytes % Myelocytes % Nucleated RBC % 0 Normal RBC Morphology INR (Anticoag Therapy) APTT Sodium Potassium Chloride Carbon Dioxide Anion Gap BUN Creatinine Est GFR ( Amer) Est GFR (Non-Af Amer) BUN/Creatinine Ratio Glucose POC Glucose (mg/dL) 150 H 163 H Calcium Phosphorus Magnesium Total Bilirubin Direct Bilirubin Indirect Bilirubin AST ALT Alkaline Phosphatase Total Protein Albumin Globulin Albumin/Globulin Ratio Prealbumin Triglycerides Cholesterol Ur Random Creatinine Ur Random Sodium 01/04/17 01/04/17 01/04/17 05:35 05:49 07:50 WBC RBC Hgb Hct MCV MCH MCHC RDW Plt Count MPV Immature Gran % (Auto) Neut % (Auto) Lymph % (Auto) [place] % (Auto) Eos % (Auto) Baso % (Auto) Absolute Neuts (auto) Absolute Lymphs (auto) Absolute Monos (auto) Absolute Eos (auto) Absolute Basos (auto) Absolute Nucleated RBC Neutrophils % Band Neutrophils % Lymphocytes % Reactive Lymphs % Monocytes % Eosinophils % Basophils % Metamyelocytes % Myelocytes % Nucleated RBC % Normal RBC Morphology INR (Anticoag Therapy) APTT Sodium 136 Potassium 4.3 Chloride 107 Carbon Dioxide 24 Anion Gap 5 BUN 24 Creatinine 1.23 H Est GFR ( Amer) 72.3 Est GFR (Non-Af Amer) 56.2 BUN/Creatinine Ratio 19.5 Glucose 151 H POC Glucose (mg/dL) 164 H 184 H Calcium 8.6 Phosphorus 3.1 Magnesium 1.9 Total Bilirubin 0.30 Direct Bilirubin Indirect Bilirubin AST 15 ALT 17 Alkaline Phosphatase 43 Total Protein 5.6 L Albumin 2.9 L Globulin 2.7 Albumin/Globulin Ratio 1.1 Prealbumin Triglycerides 127 Cholesterol Ur Random Creatinine Ur Random Sodium 01/04/17 01/04/17 01/05/17 12:09 19:57 00:18 WBC RBC Hgb Hct MCV MCH MCHC RDW Plt Count MPV Immature Gran % (Auto) Neut % (Auto) Lymph % (Auto) [place] % (Auto) Eos % (Auto) Baso % (Auto) Absolute Neuts (auto) Absolute Lymphs (auto) Absolute Monos (auto) Absolute Eos (auto) Absolute Basos (auto) Absolute Nucleated RBC Neutrophils % Band Neutrophils % Lymphocytes % Reactive Lymphs % Monocytes % Eosinophils % Basophils % Metamyelocytes % Myelocytes % Nucleated RBC % Normal RBC Morphology INR (Anticoag Therapy) APTT Sodium Potassium Chloride Carbon Dioxide Anion Gap BUN Creatinine Est GFR ( Amer) Est GFR (Non-Af Amer) BUN/Creatinine Ratio Glucose POC Glucose (mg/dL) 181 H 160 H 188 H Calcium Phosphorus Magnesium Total Bilirubin Direct Bilirubin Indirect Bilirubin AST ALT Alkaline Phosphatase Total Protein Albumin Globulin Albumin/Globulin Ratio Prealbumin Triglycerides Cholesterol Ur Random Creatinine Ur Random Sodium 01/05/17 01/05/17 01/05/17 03:50 07:55 08:46 WBC 16.8 H RBC 4.21 Hgb 12.5 L Hct 38 L MCV 91 MCH 30 MCHC 33 RDW 16 H Plt Count 408 MPV 8 Immature Gran % (Auto) Neut % (Auto) 83.9 H Lymph % (Auto) 7.6 L [place] % (Auto) 6.0 Eos % (Auto) 1.9 Baso % (Auto) 0.6 Absolute Neuts (auto) 14.1 H Absolute Lymphs (auto) 1.3 Absolute Monos (auto) 1.0 H Absolute Eos (auto) 0.3 Absolute Basos (auto) 0.1 Absolute Nucleated RBC 0 Neutrophils % Band Neutrophils % Lymphocytes % Reactive Lymphs % Monocytes % Eosinophils % Basophils % Metamyelocytes % Myelocytes % Nucleated RBC % 0 Normal RBC Morphology INR (Anticoag Therapy) APTT Sodium Potassium Chloride Carbon Dioxide Anion Gap BUN Creatinine Est GFR ( Amer) Est GFR (Non-Af Amer) BUN/Creatinine Ratio Glucose POC Glucose (mg/dL) 179 H 173 H Calcium Phosphorus Magnesium Total Bilirubin Direct Bilirubin Indirect Bilirubin AST ALT Alkaline Phosphatase Total Protein Albumin Globulin Albumin/Globulin Ratio Prealbumin Triglycerides Cholesterol Ur Random Creatinine Ur Random Sodium 01/05/17 01/05/17 01/05/17 12:18 16:31 20:04 WBC RBC Hgb Hct MCV MCH MCHC RDW Plt Count MPV Immature Gran % (Auto) Neut % (Auto) Lymph % (Auto) [place] % (Auto) Eos % (Auto) Baso % (Auto) Absolute Neuts (auto) Absolute Lymphs (auto) Absolute Monos (auto) Absolute Eos (auto) Absolute Basos (auto) Absolute Nucleated RBC Neutrophils % Band Neutrophils % Lymphocytes % Reactive Lymphs % Monocytes % Eosinophils % Basophils % Metamyelocytes % Myelocytes % Nucleated RBC % Normal RBC Morphology INR (Anticoag Therapy) APTT Sodium Potassium Chloride Carbon Dioxide Anion Gap BUN Creatinine Est GFR ( Amer) Est GFR (Non-Af Amer) BUN/Creatinine Ratio Glucose POC Glucose (mg/dL) 208 H 180 H 168 H Calcium Phosphorus Magnesium Total Bilirubin Direct Bilirubin Indirect Bilirubin AST ALT Alkaline Phosphatase Total Protein Albumin Globulin Albumin/Globulin Ratio Prealbumin Triglycerides Cholesterol Ur Random Creatinine Ur Random Sodium 01/06/17 01/06/17 01/06/17 00:23 03:46 05:57 WBC 14.6 H RBC 3.85 L Hgb 12.3 L Hct 38 L MCV 98 H MCH 32 H MCHC 33 RDW 17 H Plt Count 377 MPV 8 Immature Gran % (Auto) Neut % (Auto) 82.1 Lymph % (Auto) 8.2 L [place] % (Auto) 6.5 Eos % (Auto) 2.1 Baso % (Auto) 1.1 Absolute Neuts (auto) 12.0 H Absolute Lymphs (auto) 1.2 Absolute Monos (auto) 1.0 H Absolute Eos (auto) 0.3 Absolute Basos (auto) 0.2 Absolute Nucleated RBC 0 Neutrophils % Band Neutrophils % Lymphocytes % Reactive Lymphs % Monocytes % Eosinophils % Basophils % Metamyelocytes % Myelocytes % Nucleated RBC % 0 Normal RBC Morphology INR (Anticoag Therapy) APTT Sodium Potassium Chloride Carbon Dioxide Anion Gap BUN Creatinine Est GFR ( Amer) Est GFR (Non-Af Amer) BUN/Creatinine Ratio Glucose POC Glucose (mg/dL) 192 H 195 H Calcium Phosphorus Magnesium Total Bilirubin Direct Bilirubin Indirect Bilirubin AST ALT Alkaline Phosphatase Total Protein Albumin Globulin Albumin/Globulin Ratio Prealbumin Triglycerides Cholesterol Ur Random Creatinine Ur Random Sodium 01/06/17 01/06/17 01/06/17 05:57 07:31 16:42 WBC RBC Hgb Hct MCV MCH MCHC RDW Plt Count MPV Immature Gran % (Auto) Neut % (Auto) Lymph % (Auto) [place] % (Auto) Eos % (Auto) Baso % (Auto) Absolute Neuts (auto) Absolute Lymphs (auto) Absolute Monos (auto) Absolute Eos (auto) Absolute Basos (auto) Absolute Nucleated RBC Neutrophils % Band Neutrophils % Lymphocytes % Reactive Lymphs % Monocytes % Eosinophils % Basophils % Metamyelocytes % Myelocytes % Nucleated RBC % Normal RBC Morphology INR (Anticoag Therapy) APTT Sodium Cancelled 132 L Potassium Cancelled 4.7 Chloride Cancelled 106 Carbon Dioxide Cancelled 20 L Anion Gap Cancelled 6 BUN Cancelled 34 H Creatinine Cancelled 1.31 H Est GFR ( Amer) Cancelled 67.2 Est GFR (Non-Af Amer) Cancelled 52.3 BUN/Creatinine Ratio Cancelled 26.0 H Glucose Cancelled 175 H POC Glucose (mg/dL) 134 H Calcium Cancelled 8.8 Phosphorus Cancelled 2.8 Magnesium Cancelled 2.0 Total Bilirubin Cancelled 0.30 Direct Bilirubin Indirect Bilirubin AST Cancelled 17 ALT Cancelled 22 Alkaline Phosphatase Cancelled 49 Total Protein Cancelled 6.1 L Albumin Cancelled 3.2 Globulin Cancelled 2.9 Albumin/Globulin Ratio Cancelled 1.1 Prealbumin Cancelled Triglycerides Cancelled 119 Cholesterol Cancelled 177 Ur Random Creatinine Ur Random Sodium 01/06/17 01/07/17 01/07/17 22:11 01:07 04:52 WBC RBC Hgb Hct MCV MCH MCHC RDW Plt Count MPV Immature Gran % (Auto) Neut % (Auto) Lymph % (Auto) [place] % (Auto) Eos % (Auto) Baso % (Auto) Absolute Neuts (auto) Absolute Lymphs (auto) Absolute Monos (auto) Absolute Eos (auto) Absolute Basos (auto) Absolute Nucleated RBC Neutrophils % Band Neutrophils % Lymphocytes % Reactive Lymphs % Monocytes % Eosinophils % Basophils % Metamyelocytes % Myelocytes % Nucleated RBC % Normal RBC Morphology INR (Anticoag Therapy) APTT Sodium Potassium Chloride Carbon Dioxide Anion Gap BUN Creatinine Est GFR ( Amer) Est GFR (Non-Af Amer) BUN/Creatinine Ratio Glucose POC Glucose (mg/dL) 153 H 90 173 H Calcium Phosphorus Magnesium Total Bilirubin Direct Bilirubin Indirect Bilirubin AST ALT Alkaline Phosphatase Total Protein Albumin Globulin Albumin/Globulin Ratio Prealbumin Triglycerides Cholesterol Ur Random Creatinine Ur Random Sodium 01/07/17 01/07/17 09:17 12:43 WBC RBC Hgb Hct MCV MCH MCHC RDW Plt Count MPV Immature Gran % (Auto) Neut % (Auto) Lymph % (Auto) [place] % (Auto) Eos % (Auto) Baso % (Auto) Absolute Neuts (auto) Absolute Lymphs (auto) Absolute Monos (auto) Absolute Eos (auto) Absolute Basos (auto) Absolute Nucleated RBC Neutrophils % Band Neutrophils % Lymphocytes % Reactive Lymphs % Monocytes % Eosinophils % Basophils % Metamyelocytes % Myelocytes % Nucleated RBC % Normal RBC Morphology INR (Anticoag Therapy) APTT Sodium Potassium Chloride Carbon Dioxide Anion Gap BUN Creatinine Est GFR ( Amer) Est GFR (Non-Af Amer) BUN/Creatinine Ratio Glucose POC Glucose (mg/dL) 169 H 154 H Calcium Phosphorus Magnesium Total Bilirubin Direct Bilirubin Indirect Bilirubin AST ALT Alkaline Phosphatase Total Protein Albumin Globulin Albumin/Globulin Ratio Prealbumin Triglycerides Cholesterol Ur Random Creatinine Ur Random Sodium Exam Appearance: Thin Framed Hygiene: Normal Grooming: Fairly Well Kept Psychomotor Activities: Abnormal-Decreased Exhibits Abnormal Movement: No Attitude and Relatedness: Withdrawn Eye Contact: Poor - Speech Quality: Unpressured Latencies: Long Quantity: Terse Patient's Decription of Mood: "Sad" Observed Affect: Constricted Affect Consistent with: Dysphoria Patient's Thought Process: Impoverished Thought Content: Yes Passive Wish, No Suicidal Planning, No Homicidal Ideation, No Paranoid Ideation Experiencing Hallucinations: No, Sensorium is Clear Type of Hallucinations: Visual: No, Auditory: No, Command: No Level of Consciousness: Lethargic Orientation: Yes Intact, Yes Orientated to Time, Yes Orientated to Place, Yes Orientated to Person Impulse Control: Poor Insight and Judgement: Impaired Impression - Impression Clinical Impression: 81 y.o. , white male with a history of recurrent MDD and successful past ECT treatment presents with severe depression and neurovegetative symptoms while hospitalized on the [facility] for acute diverticulitis and abdominal abscess. The patient lacks capacity to make informed medical decisions although we are still trying to secure his assent to ECT treatment. Merits Inpatient Hospitalization: Yes Problem List - MHU Problems Type of Problem: Mood Status of Problem: Active Plan - Treatment Plan Treatment Plan: The patient is refusing oral antidepressant medications and would benefit from ECT treatment in a secured, inpatient setting. We have sent referral documents to [facility], and he has been accepted for transfer today. Dr. Ania Luis is the accepting physician. Psychiatry is signing off. Medications: Current Medications Amlodipine Besylate (Norvasc Tab*) 10 mg PO DAILY [facility] Last Admin: 01/07/17 08:47 Dose: 10 mg Bupropion HCl (Wellbutrin Sr Tab*) 150 mg PO DAILY [facility] Last Admin: 01/07/17 08:56 Dose: Not Given Calcium Carbonate (Tums*) 500 mg PO Q4H PRN PRN Reason: HEARTBURN Last Admin: 12/30/16 16:59 Dose: 500 mg Heparin Sodium (Porcine) (Heparin Flush Picc/Ml/Cvc(*)) 1 - 3 ml FLUSH 0600, 1800 [facility] PRN Reason: Protocol Last Admin: 01/07/17 06:09 Dose: 1 ml Heparin Sodium (Porcine) (Heparin Vial(*)) 5,000 units SUBCUT Q8HR [facility] Last Admin: 01/07/17 06:09 Dose: 5,000 units Piperacillin Sod/Tazobactam (Sod 3.375 gm/ Sodium Chloride) 100 mls @ 25 mls/ hr IVPB Q8H [facility] Last Admin: 01/07/17 08:45 Dose: 25 mls/hr Dextrose 500 ml/ Amino Acids 850 ml/ Sterile Water 150 ml/Fat Emulsion Intravenous 250 ml/ Sodium Chloride 100 meq/Potassium Chloride 50 meq/Potassium Phosphate 15 mmole/Calcium Gluconate 15 meq/Magnesium Sulfate 10 meq/ Multivitamins 10 ml/ Trace Metals 3 ml/ Phytonadione 0.2 mg/ Insulin Human Regular 20 units/ Nutrition (Parenteral) 1,853.021 mls @ 77.091 mls/hr [facility] Last Admin: 01/06/17 16:30 Dose: 77.091 mls/hr Lidocaine (Xylocaine 2% Viscous*) 20 ml SWISH SPIT TID PRN PRN Reason: PAIN Lisinopril (Prinivil Tab*) 10 mg PO DAILY [facility] Last Admin: 01/07/17 08:47 Dose: 10 mg Lorazepam (Ativan Tab(*)) 0.25 mg PO Q8H PRN PRN Reason: ANXIETY Last Admin: 12/29/16 09:27 Dose: 0.25 mg Olanzapine (Zyprexa Tab*) 2.5 mg PO BEDTIME [facility] Last Admin: 01/06/17 22:05 Dose: 2.5 mg Ondansetron HCl (Zofran Inj*) 4 mg IV Q4H PRN PRN Reason: NAUSEA/VOMITING Pantoprazole Sodium (Protonix Iv*) 40 mg IV Q24H [facility] Last Admin: 01/06/17 22:05 Dose: 40 mg Pharmacy Consult (Zosyn Per Pharmacy*) 1 note FOLLOW UP .ZOSYN PER PHARMACY [facility] Sertraline HCl (Zoloft*) 100 mg PO DAILY [facility] Last Admin: 01/07/17 08:48 Dose: 100 mg Sodium Bicarbonate (Sodium Bicarbonate (Antacid)*) 650 mg PO AC [facility] Last Admin: 01/07/17 12:20 Dose: Not Given - Discharge Plan Discharge Plan: Inpatient Hospitalization
--- NOTE | 2017-01-07 18:12 | PN ---
Subjective Date of Service: 01/07/17 Interval History: Patient still severely depressed and complains but declines help. Family History: Unchanged from Admission Social History: Unchanged from Admission Past Medical History: Unchanged from Admission Objective Vital Signs 01/06/17 01/06/17 01/07/17 22:27 23:40 03:44 Temperature 98.2 F 98.0 F Pulse Rate 90 87 Respiratory 22 18 20 Rate Blood Pressure 147/66 147/76 (mmHg) O2 Sat by Pulse 97 97 Oximetry 01/07/17 01/07/17 01/07/17 08:35 08:40 11:53 Temperature 99.1 F 97.8 F Pulse Rate 86 92 Respiratory 18 17 15 Rate Blood Pressure 151/67 151/66 (mmHg) O2 Sat by Pulse 97 97 Oximetry Oxygen Devices in Use Now: None Appearance: Elderly man sitting up in bed in NAD Eyes: No Scleral Icterus Ears/Nose/Mouth/Throat: Mucous Membranes Moist Neck: No Thyroid Enlargement, Masses Respiratory: Clear to Auscultation Cardiovascular: - - S1S2 Abdominal: No Hepatosplenomegaly Lymphatic: No Cervical Adenopathy Extremities: No Clubbing, Cyanosis, - - + 1 pitting edema Skin: No Rash or Ulcers Neurological: Alert and Oriented x 3 Result Diagrams: 01/06/17 05:57 01/06/17 07:31 Microbiology and Other Data: Microbiology 12/24/16 17:50 Stool Occult Blood ([facility]) - Final Stool Assess/Plan/Problems-Billing Assessment: Mr. Clarke is an 81 yo M with h/o HTN, anxiety, depression, diverticulits, who presented to ED [facility] c/o abdominal discomfort, N/V, found to have SBO and intraabdominal abscess. - Patient Problems (1) SBO (small bowel obstruction) Status: Acute Code(s): K56.69 - OTHER INTESTINAL OBSTRUCTION SNOMED Code(s) : 217396227 Comment: Resolved. (2) Abdominal abscess Status: Acute Code(s): K65.1 - PERITONEAL ABSCESS SNOMED Code(s): 33976164 Comment: Almost certainly due to diverticulitis. Appears to be improving with Zosyn. Doing better after IR placed transcutaneus drain on 12/25/16. CT 12/28/16 shows decompressed abscess and several small microabscesses. On TPN now mostly because refuses to eat, and patient declines surgery (3) Acute renal failure Status: Acute Comment: Stable. Monitor (4) Depression Status: Acute Code(s): F32.9 - MAJOR DEPRESSIVE DISORDER, SINGLE EPISODE, UNSPECIFIED SNOMED Code(s): 46577962 Comment: - This seems to be his major issue. - I talked to the son this AM and this is a chronic issue and needed ECT a few years ago which worked well. Psych saw thang and agreed. Patient going to [place]. Will need Zosyn renewed and change to IVF - D5NS from TPN for transport. Continue Wellbutrin, Zoloft, and Olanzapine. (5) HTN (hypertension) Status: Acute Code(s): I10 - ESSENTIAL (PRIMARY) HYPERTENSION SNOMED Code(s) : 35030866 Comment: Borderline control. Continue Amlodpine and Lisinopril for now and adjust accordingly. (6) Protein-calorie malnutrition, moderate Status: Acute Code(s): E44.0 - MODERATE PROTEIN-CALORIE MALNUTRITION SNOMED Code(s): 630425034 Comment: Prealbumin is 12 - should improve after eating. Continue TPN and regular diet as tolerated.Encourage po intake. (7) DVT prophylaxis Status: Acute Code(s): FEU5746 - SNOMED Code(s): 355783922 Comment: - SQ heparin. Status and Disposition: Transferred to [place] for ECT
== END 2017-01-07 13:40 | disposition short-term general hospital (02) | DRG 389 ==
LOC: SSU 17:23
PROVIDERS: ADMIT Hospitalist; ATTEND Surgery
PROC: 0W9G30Z Drainage of Peritoneal Cavity with Drainage Device, Percutaneous Approach (ICD-10-PCS; 2016-12-25)
PROC: 0W9G3ZZ Drainage of Peritoneal Cavity, Percutaneous Approach (ICD-10-PCS; 2016-12-28)
PROC: 3E0336Z Introduction of Nutritional Substance into Peripheral Vein, Percutaneous Approach (ICD-10-PCS; principal; 2017-01-02)
PROC: 02HV33Z Insertion of Infusion Device into Superior Vena Cava, Percutaneous Approach (ICD-10-PCS; 2017-01-02)
DX: K56.60 Unspecified intestinal obstruction (principal); K57.80 Diverticulitis of intestine, part unspecified, with perforation and abscess without bleeding; N17.9 Acute kidney failure, unspecified; E87.2 Acidosis; E44.0 Moderate protein-calorie malnutrition; I10 Essential (primary) hypertension; F32.9 Major depressive disorder, single episode, unspecified; F41.9 Anxiety disorder, unspecified; K59.00 Constipation, unspecified; Z85.46 Personal history of malignant neoplasm of prostate; Z82.49 Family history of ischemic heart disease and other diseases of the circulatory system; Z83.3 Family history of diabetes mellitus; R19.7 Diarrhea, unspecified; D72.829 Elevated white blood cell count, unspecified; Z68.22 Body mass index [BMI] 22.0-22.9, adult
CPT/HCPCS: 36415; 49406; 71010; 74177; 80048; 80053; 80076; 82270; 82465; 82570; 83735; 84100; 84134; 84300; 84478; 85025; 85027; 85610; 85730; 87040; 87070; 87076; 87077; 87186; 87205; 87493; 87640; 87641; 93005; 94760; A9270-GY; C1751; C1769; J0744; J1644; J2060; J2543; J3010; Q9967